=== PATIENT | female | born 1945 | race Caucasian/White ===

== ENCOUNTER → 2021-02-07 15:42 | Outpatient (CLI) | payer MEDICARE, OTHER, SELFPAY ==
[2021-02-07 18:05] LABS: Absolute Lymphocyte Count 1.91 X10^3/uL (0.83-4.51); Absolute Neutrophil Count 4.5 X10^3/uL (2.0-7.7); Basophil# 0.03 X10^3/uL; Basophil% 0.4 % (0-1); Eosinophil# 0.23 X10^3/uL; Eosinophils% 3.1 % (0-5); Hematocrit 39.3 % (37-47); Hemoglobin 12.6 g/dL (12.0-15.0); Lymphocyte # 1.91 X10^3/ul (0.83-4.51); Lymphocyte % 25.4 % (19-41); Mean Corp Hgb Conc 32.1 g/dL (32-36); Mean Corpuscular Volume 90.3 fL (81-99); Mean Platelet Vol. 9.9 fl (6.2-12.0); Monocyte# 0.81 X10^3/uL; Monocyte% 10.8 % (0-10); NRBC Flagged by Analyzer 0 % (0-5); Neutrophil # 4.52 X10^3/uL (2.7-7.7); Neutrophil % 59.9 % (47-70); Platelet Count 280 K/mm3 (150-450); RBC Distribution Width CV 13.1 % (11.6-14.6); RBC Distribution Width SD 43.1 fl (35.1-43.9); Red Blood Count 4.35 M/mm3 (4.2-5.4); White Blood Count 7.5 K/mm3 (4.4-11.0)
[2021-02-07 18:38] LABS: ALB/GLOB Ratio 0.8 RATIO (0.9-2.4); AST(SGOT) 17 U/L (15-37); Alanine Aminotransfer ALT/SGPT 24 U/L (13-56); Albumin, Serum 3.2 g/dL (3.2-5.0); Alkaline Phosphatase 49 U/L (45-117); Anion Gap 5 (5-15); BUN 11 mg/dL (7-18); BUN/Creat Ratio 17.1 RATIO (10-20); Calcium,Total 8.8 mg/dL (8.5-10.1); Chloride 104 mmol/L (98-107); Cholesterol 178 mg/dL (200); Creatinine, Serum 0.64 mg/dL (0.55-1.02); EST Glomerular Filtration Rate 96 mL/min (>60); Est Glom Filt Rate - Afr Amer 116 mL/min (>60); Globulin 3.8 g/dL (2.2-4.2); Glucose 91 mg/dL (74-106); High Density Lipoprotein 66 mg/dL; Potassium 3.6 mmol/L (3.5-5.1); Sodium Level 139 mmol/L (136-145); Triglycerides 124 mg/dL; Very Low Density Lipoprotein 25 mg/dL (5-40)
== END ==
PROVIDERS: PCP Family Medicine; Referring Provider Family Medicine; Visit Provider Family Medicine
DX: M79.10 Myalgia, unspecified site (principal); C50.919 Malignant neoplasm of unspecified site of unspecified female breast; R07.89 Other chest pain; Z13.220 Encounter for screening for lipoid disorders; Z91.89 Other specified personal risk factors, not elsewhere classified
CPT/HCPCS: 36415; 80053; 80061; 85025

== ENCOUNTER → 2022-07-04 | Outpatient (CLI) | payer MEDICARE, OTHER, SELFPAY ==
--- NOTE | 2022-07-04 07:33 | CT_ITS ---
STUDY: CT CHEST, ABDOMEN T PELVIS WITH CONTRAST REASON FOR EXAM: Female, 76 years old. BREAST CA RADIATION DOSAGE (If Supplied By Facility): CTDIvol = ( 13.44 ) mGy, DLP = ( 1105.08 ) mGycm TECHNIQUE: Transaxial imaging was performed following intravenous administration of IV 100mL [id number]. Individualized dose optimization techniques were used for this CT. COMPARISON: No relevant priors. FINDINGS: CHEST The lungs are normal. Tiny juxtapleural nodular density or focal nodular pleural thickening posteriorly in the superior segment of the right lower lobe measuring approximately 2 to 3 mm in size. No pleural effusion or pneumothorax. Heart size is normal. There is a tiny focus of coronary artery calcification Postop change status post bilateral mastectomy Normal mediastinum. Normal hilar regions. Normal unenhanced pulmonary arteries. Mild atherosclerotic change of the aorta without evidence for aneurysm.. Dorsal spine demonstrates degenerative changes. . ABDOMEN Nonspecific fatty infiltrated liver. Tiny solid nodule in the right lobe measuring approximately 5 to 6 mm of uncertain significance.. Normal gallbladder and extrahepatic biliary system. Normal spleen. Diffusely atrophic pancreas.. Normal bilateral adrenal glands. Normal right kidney. Normal left kidney. Normal visualized stomach. Mild ileus with diffuse fecal retention in the colon.. Minor diverticular changes of sigmoid colon without evidence for acute diverticulitis No evidence for acute appendicitis. Normal abdominal aorta. Normal inferior vena cava. Normal retroperitoneum. Normal abdominal wall. Lumbar spine demonstrates mild degenerative change. Grade 1 spondylolisthesis at L4-5. Degenerative changes of the sacroiliac joints. PELVIS Normal urinary bladder. Normal visualized small intestine. Minor sigmoid diverticulosis without evidence for acute diverticulitis There is no pelvic fluid. There is no pelvic lymphadenopathy or mass lesion. Normal visualized pelvic arteries. Normal abdominal wall. . CT/CT Chest, Abd, Pel w/Contrast IMPRESSION: Postop change status post bilateral mastectomy.. Tiny juxtapleural nodular density in the right lower lobe with more focal nodular pleural thickening measuring 5 to 6 mm in size of uncertain etiology. Metastatic disease not entirely excluded. Would recommend follow-up imaging utilizing Fleischner Society criteria Nonspecific fatty infiltration of liver. Tiny solid nodule in the right lobe of uncertain etiology possibly representing hemangioma although metastasis is not excluded. MRI would be useful for further evaluation. Minor diverticular disease of the sigmoid colon without evidence for acute diverticulitis No definitive evidence for metastatic disease. Other findings as above Electronically Signed: Kirk Young MD at 22:09 EDT ,
== END | disposition home or self-care (01) ==
LOC: CT 07:33
PROVIDERS: PCP Internal Medicine; Referring Provider Internal Medicine Medical Oncology; Visit Provider Internal Medicine Medical Oncology
DX: C50.919 Malignant neoplasm of unspecified site of unspecified female breast (principal)
CPT/HCPCS: 71260; 74177; Q9967

== ENCOUNTER → 2022-07-07 | Outpatient (CLI) | payer MEDICARE, OTHER, SELFPAY ==
--- NOTE | 2022-07-07 07:31 | NM_ITS ---
CLINICAL: 76-year-old female with history of primary breast carcinoma. WHOLE BODY 99m Tc MDP RADIONUCLIDE BONE SCINTIGRAPHY COMPARISON: None available FINDINGS: Following the intravenous administration of 25.0 mCi of 99m Tc MDP, whole body bone images reveal: 1. Increased radiopharmaceutical concentration is defined in the sternoclavicular compartment of the right shoulder, the bilateral wrists, the mid-lower cervical spine posteriorly on the right and left, the second and fourth lumbar vertebra, the patellofemoral compartments of both knees, the left midfoot and right forefoot. 2. The remaining skeletal structures are scintigraphically unremarkable with normal-appearing renal images and urinary bladder activity identified. NM/Bone Scan Whole Body IMPRESSION: 1. The increase in radiotracer defined in the right shoulder, both wrist articulations, the cervical and lumbar spine, the bilateral knees, the left midfoot and right forefoot is commensurate with degenerative arthrosis. 2. There is no scintigraphic evidence of diffuse axial skeletal metastatic disease on the current examination. Electronically Signed: James Velasquez, at 8:36 EDT ,
== END | disposition home or self-care (01) ==
LOC: NM 07:29
PROVIDERS: PCP Internal Medicine; Referring Provider Internal Medicine Medical Oncology; Visit Provider Internal Medicine Medical Oncology
DX: C50.911 Malignant neoplasm of unspecified site of right female breast (principal); C50.912 Malignant neoplasm of unspecified site of left female breast
CPT/HCPCS: 78306; A9503

== ENCOUNTER → 2023-04-27 | Outpatient (CLI) | payer MEDICARE, OTHER, SELFPAY ==
--- OUTSIDE RECORDS SUMMARY | 2023-04-27 06:49 | XMS RPT_ITS | CCD ---
Author Name Unknown Address [address] [place] [address] Organization [facility] Care Team Providers Care Data Communications Technician Name Role Phone Billie GALLOWAY, Tiana Primary Care Provider GANTA, TIANA Primary Care Unavailable GANTA, TIANA Attending Unavailable GANTA, TIANA Referring Unavailable GANTA, TIANA Primary Care Unavailable GANTA, TIANA Referring Unavailable GANTA, TIANA Primary Care Unavailable GANTA, TIANA Primary Care Unavailable GANTA, TIANA Referring Unavailable GANTA, TIANA Primary Care Unavailable GANTA, TIANA Referring Unavailable GANTA, TIANA Primary Care Unavailable GANTA, TIANA Attending Unavailable GANTA, TIANA Primary Care Unavailable GANTA, TIANA Referring Unavailable OLDER, SEN Attending Unavailable GANTA, TIANA Primary Care Unavailable OLDER, SEN Referring Unavailable GANTA, TIANA Primary Care Unavailable GANTA, TIANA Primary Care Unavailable OLDER, SEN Attending Unavailable GANTA, TIANA Primary Care Unavailable OLDER, SEN Referring Unavailable GANTA, TIANA Primary Care Unavailable GANTA, TIANA Primary Care Unavailable [place], KATTY Referring Unavailable GANTA, TIANA Primary Care Unavailable Allergies Allergy Classification Reported Allergen(s) Allergy Type Date of Onset Reaction(s) Facility (20 sources) Acetaminophen / HYDROcodone; Translations: [HYDROCODONE-ACETA MINOPHEN] Drug Allergy 1 GI Upset, Vomiting, Other: See Comments [facility] Work Phone: (20 sources) Codeine; Translations: [CODEINE] Drug Allergy 1 GI Upset [facility] Work Phone: (6 sources) Acetaminophen; Translations: [ACETAMINOPHEN] Drug Allergy 2 Mental Status Change [facility] Medications Current Medications Medication Drug Class(es) Dates Sig (Normalized) Sig (Original) perflutren lipid microspheres 1.3 mL in NaCl (PF) 0.9% 10 mL injection (DEFINITY) (11 sources) Start: 04-12-2022 End: 07-12-2023 perflutren lipid microspheres 1.3 mL in NaCl (PF) 0.9% 10 mL injection (DEFINITY) 125 ml sodium chloride 9 mg/ml prefilled syringe (11 sources) Start: 04-12-2022 End: 07-12-2023 sodium chloride 0.9 % (flush) 10 mL (BD POSIFLUSH) traZODone hydrochloride 50 mg oral tablet (19 sources) Serotonin Reuptake Inhibitor Start: 11-21-2022 End: 11-21-2023 take 1 tablet by mouth once daily at bedtime traZODone (DESYREL) 50 mg tablet Take 1 tablet by mouth daily at bedtime. 90 tablet 3 11/21/2022 11/21/2023 Active Completed/Discontinued Medications Medication Drug Class(es) Dates Sig (Normalized) Sig (Original) cephalexin 500 mg oral capsule (3 sources) Cephalosporin Antibacterial Start: 10-26-2022 End: 11-02-2022 take 1 capsule by mouth twice daily cephALEXin (KEFLEX) 500 mg capsule Take 1 capsule by mouth twice daily for 7 days. 14 capsule 0 10/26/2022 11/02/2022 Problems Active Problems Problem Classification Problem Date Documented Date Episodic/Chronic Cancer of breast (20 sources) Malignant tumor of breast ; Translations: [Malignant neoplasm of unspecified site of unspecified female breast] Onset: 02-15-2021 02-15-2021 Chronic Genitourinary symptoms and ill-defined conditions (1 source) Increased frequency of urination; Translations: for 13 visits from Start of Care Date: 05/18/21 to 07/14/2021 and treatment included: Therapeutic exercise, Neuromuscular re-education and Self-halfway management. Goals for Episode of Care: created on 05/18/21 through 06/29/21 Goals updated on 06/15/2021 through 07/20/21. Goals updated on 07/14/2021. Independent in home exercises. -- MET Patient will decrease pain rating by 2 points to meet minimal clinical important difference for numeric pain rating scale. -- MET Patient will decrease pain to 1-2/10 with functional activities to allow patient to improve ambulation, transfers and standing tolerance for ADLs. Stand / Walk 60 to 90 minutes without pain/symptoms. -- MET Sleep through night without pain/symptoms. -- MET Maintain proper sitting posture throughout session -- MET Patient will be able to tolerate sleeping without interruption for 6-8 hours without increased symptoms. -- MET Patient will be able to correct postural deviations independently in order to improve postural alignment of trunk during transfers, ambulation, standing and functional activities. -- MET Knowledgeable regarding prophylaxis. -- MET Patient Goals: tolerate standing for at least 30 minutes to play vibrTapstreamone and walking/standing >1 hour for exercise -- MET SUBJECTIVE: Patient Reason for Visit: Pt. reports she feels great and she has realized that activating her core when she has lower back pain decreases her symptoms. She is able to stand and walk for at least x1 hour due to improved core activation with activities and she manages her symptoms better with the repeated flexion exercises. Pain: Pain Pain Level: 0 Pain Location: Leg - Right;Leg - Left Pain Level 2: 0 Pain Location 2: Back Post Treatment Pain Post Treatment Pain Level: 0 Post Treatment Pain Location: Low Back/Lumbar Spine - Right;Low Back/Lumbar Spine - Left;Leg - Right;Leg - Left PROMIS Scales Higher is Better 02/14/2021 05/17/2021 GH Physical - Score 47.7 (Good) 47.7 (Good) GH Physical - Percentile 41 % 41 % GH Mental - Score 48.3 (Very Good) 67.6 (Excellent) GH Mental - Percentile 43 % 96 % T-scores: mean of general population = 50. 5 points is clinically meaningfully difference Percentiles provide an indication of how the patient's score ranks in relation to the general population. Higher percentile rankings indicate better function/quality of life. 50th percentile is the average of the general population and indicates half of respondents had a worse score. T-scores: mean of general population = 50. 5 points is clinically meaningfully difference Percentiles provide an indication of how the patient's score ranks in relation to the general population. Higher percentile rankings indicate better function/quality of life. 50th percentile is the average of the general population and indicates half of respondents had a worse score. OBJECTIVE MEASURES WITH LEVEL OF FUNCTION: Lumbar Spine AROM Lumbar Flexion: Normal Lumbar Extension: Minimal limitation Lumbar R Side-Bend: Normal Lumbar L Side-Bend: Normal Lumbar R Rotation: Normal Lumbar L Rotation: Normal TREATMENT: Therapeutic Exercise: 1: seated repeated flexion 3x10 2: seated TA activation 3x10 3: hook lying TA activation 3x10 4: hookl lying KTC stretch 3x30 sec 5: seated TA with alt UE raises 20x alt 6: seated TA with alt LE raises 20x alt 7: seated TA with alt LE and UE raises 20x alt Skilled Intervention: Patient was educated in proper exercise technique and purpose for exercises. Reviewed and educated patient on additions/changes for home exercise program as above (*). Skilled judgment was provided in selection of appropriate interventions. Correct performance of therapeutic exercises was facilitated with verbal and visual cuing. Additional time necessary for assessing progress toward goals due to discharge from PT. Educated patient on rationale for performing exercises in regards to decreasing fatigue , increase ease of ADL and ROM and function . Patient education as noted. Billing Therapeutic Exercise Treatment Minutes: 30 Total Treatment Time Minutes (timed/untimed): 30 Cait Jonh PT documented in this encounter [facility] 07-11-2021 History of Presen t illness Narrative Episode Visit Count: 12 Therapist That Will Oversee The Plan Of Care: Cait John Start of Care Date: 05/18/21 Onset Date: 12/16/20 Plan of Care Certification Date: 06/15/21 Next Certification Due Date: 07/20/21 Patient Identified by Name and Date of : Yes REHABILITATION AND SPORTS THERAPY PHYSICAL THERAPY TREATMENT NOTE ASSESSMENT: Krysta Friedman tolerated the session with cues for correct technique. She demonstrated difficulty with correct technique when completing the paloff press with OTB, but reported decreased pain with repeated flexion as consistently demonstrated. The patient will continue to benefit from ongoing skilled physical therapy to progress toward set goals. PLAN FOR NEXT VISIT: DC SUBJECTIVE: Patient Reason for Visit: Pt. reports she has been very busy while being in the process of purchasing a home. I haven't even had time to blow up my ball. Pt. has been completing her exercises 1x/day and admits this is not adequate for her to self manage her symptoms or improve her core strength. Pain: Pain Pain Level: 5 Pain Location: Leg - Right;Leg - Left Pain Level 2: 0 Pain Location 2: Back Post Treatment Pain Post Treatment Pain Location: Low Back/Lumbar Spine - Right;Low Back/Lumbar Spine - Left;Leg - Right;Leg - Left OBJECTIVE MEASURES WITH LEVEL OF FUNCTION: TREATMENT: Therapeutic Exercise: 1: seated repeated flexion 3x10 2: seated TA activation 3x10 4: standing paloff press OTB 3x12 each side 5: *YTB issued Skilled Intervention: Patient was educated in proper exercise technique and purpose for exercises. Reviewed and educated patient on additions/changes for home exercise program. Skilled judgment was provided in selection of appropriate interventions. Correct performance of therapeutic exercises was facilitated with verbal and visual cuing. Additional time necessary for pt. education due to pt. Having questions regarding swimming exercises. Patient education as noted. Self-Detention Management: 1: *pt. education to be proactive in managing her symptoms, suggested performing exercises prior to pain intensity increasing to severe level . 2: *pt. education to avoid prolonged sitting, education that prolonged sitting is mroe force on the lower back than standing 3: *reviewed swimming strokes that are flexion directional preference as opposed to extension that may cause increased symptoms. Skilled Intervention: Skilled judgment in the selection of proper modification for activity of daily living/home management based on clinical presentation, deficits, and needs. Educated the patient regarding recommendations and provided written instruction to facilitate compliance. Reviewed patient specific diagnosis in relation to activities of daily living/home management. Activity progression based on professional judgement. Correct performance of home program was facilitated with verbal and visual cueing. Billing Therapeutic Exercise Treatment Minutes: 20 Self-Care/Home Management Treatment Minutes: 10 Total Treatment Time Minutes (timed/untimed): 30 Cait John PT documented in this encounter [facility] 06-27-2021 History of Presen t illness Narrative Episode Visit Count: 10 Therapist That Will Oversee The Plan Of Care: Cait John Start of Care Date: 05/18/21 Onset Date: 12/16/20 Plan of Care Certification Date: 06/15/21 Next Certification Due Date: 07/20/21 Patient Identified by Name and Date of : Yes REHABILITATION AND SPORTS THERAPY PHYSICAL THERAPY TREATMENT NOTE ASSESSMENT: Krysta Friedman tolerated the session with no issues. She demonstrated improvements in TA activation with minimal cues, even in the hook lying position. The patient will continue to benefit from ongoing skilled physical therapy to progress toward set goals. PLAN FOR NEXT VISIT: Standing TA stabilization strengthening for at least 50% of the visit to assess pt. tolerance. SUBJECTIVE: Patient Reason for Visit: Pt. brings her ball with her to PT visit, reports it will not maintain air and it does not feel as firm as the ball used at the clinic during visits. PT advised pt. to send her ball back and purchase a ball that is more similar material of that in the clinic. Pain: Pain Pain Level: 0 Pain Location: Leg - Right;Leg - Left Frequency: Intermittent Post Treatment Pain Post Treatment Pain Level: 0 Post Treatment Pain Location: Low Back/Lumbar Spine - Right;Low Back/Lumbar Spine - Left;Leg - Right;Leg - Left Post Treatment Symptoms: no pain throughout visit during all exercises OBJECTIVE MEASURES WITH LEVEL OF FUNCTION: TREATMENT: Therapeutic Exercise: 1: seated TA activation, UE push down into ball on lap 3x12 2: seated on chair, foward flexion rolling ball forward 2x10 3: supine with physioball isometric TA 3x12 4: supine physioball roll outs with BLEs, hook lying 2x10 Skilled Intervention: Patient was educated in proper exercise technique and purpose for exercises. Reviewed and educated patient on additions/changes for home exercise program as above (*). Provided written instruction for home exercise program to facilitate proper performance and compliance. Correct performance of therapeutic exercises was facilitated with verbal, visual and tactile cuing. Additional time necessary for pt. education due to pt. Having questions about sit ups as a core strengthening exercise. Educated patient on rationale for performing exercises in regards to decreasing fatigue , increase ease of ADL and ROM and function . Patient education as noted. Neuromuscular Re-Education: 1: seated alt marches seated on ball 5x30 sec x1 UE support Skilled Intervention: Education in proprioceptive/kinesthetic awareness during sitting and dynamic activities. Reviewed and educated patient on additions/changes for home program as noted above with an (*). Patient education as noted. Self-Detention Management: 1: *pt. education regarding alternative to sit ups, to avoid repetative lumbar shear forces with excessive AROM of hips and lower back 2: *pt. education encouraging pt. to not push herself but to rather manage symptoms by performing standing and walking tasks within intervals of time that do not result in increased pain as opposed to performing HEP stretching when the pain becomes unbearable. Skilled Intervention: Skilled judgment in the selection of proper modification for activity of daily living/home management based on clinical presentation, deficits, and needs. Physical assistance was provided during education for modifications and patient safety. Reviewed patient specific diagnosis in relation to activities of daily living/home management. Activity progression based on professional judgement. Moderate verbal cues for maintaining neutral spine alignment. Correct performance of home program was facilitated with verbal, visual and tactile cueing. Billing Therapeutic Exercise Treatment Minutes: 20 Neuromuscular Re-Education Treatment Minutes: 10 Self-Care/Home Management Treatment Minutes: 10 Total Treatment Time Minutes (timed and untimed codes) : 40 Cait John PT documented in this encounter [facility] 06-22-2021 History of Presen t illness Narrative Episode Visit Count: 9 Therapist That Will Oversee The Plan Of Care: Cait John Start of Care Date: 05/18/21 Onset Date: 12/16/20 Plan of Care Certification Date: 06/15/21 Next Certification Due Date: 07/20/21 Patient Identified by Name and Date of : Yes REHABILITATION AND SPORTS THERAPY PHYSICAL THERAPY TREATMENT NOTE ASSESSMENT: Krysta Friedman tolerated the session with no issues. She demonstrated improvements in stability and balance while performing seated physioball exercises, as demonstrated by only 1 UE support without LOB. The patient will continue to benefit from ongoing skilled physical therapy to progress toward set goals. PLAN FOR NEXT VISIT: Continue core stabilization strengthening using physioball. SUBJECTIVE: Patient Reason for Visit: Pt. reports no pain with standing x1 hour today during rehersal. She also reports she has noticed that performing a pelvic tilt with standing and this reduces her pain while allowing her to stand greater periods of time with less lower back pain. Pain: Pain Pain Level: 0 Pain Location: Leg - Right;Leg - Left Frequency: Intermittent Post Treatment Pain Post Treatment Pain Level: 0 Post Treatment Pain Location: Low Back/Lumbar Spine - Right;Low Back/Lumbar Spine - Left;Leg - Right;Leg - Left Post Treatment Symptoms: no complaints of pain or LOB on ball throughout visit today OBJECTIVE MEASURES WITH LEVEL OF FUNCTION: TREATMENT: Neuromuscular Re-Education: 1: seated on 65 cm PPTs physioball 3x30 sec 2: seated on pysioball alt LE marches with x1 UE support 3x30 sec (no R hip pain, no LOB) 3: seated on physioball alt LAQ 3X30 sec x1 UE support 4: seated on physioball repeated lumbar flexion 3x10 (x1 UE support, between sets of alternating marches) 5: seated on physibon [facility], paloff press OTB, PT assist with TB anchor 3x12 each side 6: physioball TA isometric push down 3x15 7: seated on physioba, alt UE lifts 3x30 sec continuous Skilled Intervention: Skilled judgment used to assess appropriate program for balance and coordination activity. Education in proprioceptive/kinesthetic awareness during sitting, reaching and dynamic activities. Education and demonstration for posture and positioning for tone management. Insured patient safety with use of UE support on stable surface. Reviewed and educated patient on additions/changes for home program as noted above with an (*). Patient education as noted. Billing Neuromuscular Re-Education Treatment Minutes: 40 Total Treatment Time Minutes (timed and untimed codes) : 40 Cait John PT documented in this encounter [facility] Diagnosis Piriformis syndrome, unspecified laterality [facility] Diagnosis Piriformis syndrome, unspecified laterality documented in this encounter [facility] note* Diagnosis Piriformis syndrome, unspecified laterality documented in this encounter [facility] note* Diagnosis Anterolisthesis of lumbar spine- Primary Retrolisthesis of vertebrae Displacement of intervertebral disc, site unspecified, without myelopathy Special screening examination for viral disease Special screening examination for unspecified viral disease Screening for osteoporosis Special screening for osteoporosis Asymptomatic menopause Other osteoporosis, unspecified pathological fracture presence Encounter for immunization Need for other specified prophylactic vaccination against single bacterial disease documented in this encounter [facility] note* Diagnosis Screening for osteoporosis Special screening for osteoporosis Asymptomatic menopause [facility]* Diagnosis Polymyalgia rheumatica (HCC)- Primary Polymyalgia rheumatica documented in this encounter [facility] note* Diagnosis Polymyalgia rheumatica (HCC)- Primary Polymyalgia rheumatica [facility]* Diagnosis Lumbosacral radiculopathy at L5- Primary Thoracic or lumbosacral neuritis or radiculitis, unspecified Bilateral malignant neoplasm of breast in female, unspecified estrogen receptor status, unspecified site of breast (HCC) Lumbar radiculopathy Thoracic or lumbosacral neuritis or radiculitis, unspecified Brisk deep tendon reflexes Abnormal reflex Weakness of foot, unspecified laterality Muscle weakness Muscle weakness (generalized) Dyspnea on exertion Other dyspnea and respiratory abnormality Shortness of breath Spinal stenosis of lumbar region with neurogenic claudication Spinal stenosis, lumbar region, with neurogenic claudication documented in this encounter [facility] note* Diagnosis Spinal stenosis of lumbar region with neurogenic claudication- Primary Spinal stenosis, lumbar region, with neurogenic claudication Foraminal stenosis of lumbar region Spinal stenosis, lumbar region, without neurogenic claudication Bilateral malignant neoplasm of breast in female, unspecified estrogen receptor status, unspecified site of breast (HCC) Other fatigue Vitamin B12 deficiency Other B-complex deficiencies Vitamin D deficiency Unspecified vitamin D deficiency Dry eye Tear film insufficiency, unspecified Arthritis Arthropathy, unspecified, site unspecified [facility]* Diagnosis Urinary frequency- Primary documented in this encounter [facility] note* Diagnosis Urinary tract infection without hematuria, site unspecified- Primary Diastolic dysfunction Heart disease, unspecified Lipid screening Screening for lipoid disorders documented in this encounter [facility] Advance Directives No Advanced Directives Records FoundDocuments on File Type Date Recorded 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 Advance Directive(s) 04/20/2021 10:27 AM Advance Directive(s) 04/13/2021 10:35 AM Documents on File Type Date Recorded 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 anation Advance Directive(s) 04/20/2021 10:27 AM Advance Directive(s) 04/13/2021 10:35 AM Reason for Referral Specialty Diagnoses / Procedures Referred By Hardeep mccartney Referred To Contact Pain Management Diagnoses Anterolisthesis of lumbar spine Retrolisthesis of vertebrae Procedures CONSULT TO PAIN MGT Tiana Wise MD [address] [place] [address] Referral ID Status Reason Start Date Expiration Date Visits Requested Visits Authorized [id number] Ref Not Required PCP Requested Referral 08/18/2021 11/16/2021 3 3 Specialty Diagnoses / Procedures Referred By Contac t Referred To Contact MR IMAGING Diagnoses Spinal stenosis of lumbar region with neurogenic claudication Procedures MRI LUMBAR SPINE WO IVCON MRI SPINAL CANAL LUMBAR W/O CONTRAST MATERIAL Tiana Wise MD [address] [place] [address] Mr Imaging Referral ID Status Reason Start Date Expiration Date Visits Requested Visits Authorized [id number] Authorized Auto-Generat ed Referral 04/12/2022 05/12/2023 1 1 Specialty Diagnoses / Procedures Referred By Contac t Referred To Contact [facility] Diagnoses Dyspnea on exertion Procedures ECHO ECHO TTHRC R-T 2D W/WOM-MODE COMPL SPEC&COLR D Tiana Wise MD [address] [place] [address] [facility] [place] [address] Referral ID Status Reason Start Date Expiration Date Visits Requested Visits Authorized [id number] Authorized Auto-Generat ed Referral 04/12/2022 04/12/2023 1 1 Specialty Diagnoses / Procedures Referred By Contac t Referred To Contact Diagnoses Bilateral malignant neoplasm of breast in female, unspecified estrogen receptor status, unspecified site of breast (HCC) Procedures CONSULT TO HEMATOLOGY/ONCOLOGY OFFICE/OUTPATIENT [facility] MDM 60-74 MINUTES Tiana Wise MD [address] [place] [address] Referral ID Status Reason Start Date Expiration Date Visits Requested Visits Authorized [id number] Authorized PCP Requested Referral 05/09/2022 05/09/2023 1 1 Specialty Diagnoses / Procedures Referred By Contac t Referred To Contact [facility] Diagnoses Spinal stenosis of lumbar region with neurogenic claudication Foraminal stenosis of lumbar region Procedures CONSULT TO PHYSICAL THERAPY PHYSICAL THERAPY EVALUATION HIGH COMPLEX 45 MINS Tiana Wise MD [address] [place] [address] [facility] [place] [address] Referral ID Status Reason Start Date Expiration Date Visits Requested Visits Authorized [id number] Authorized PCP Requested Referral Auto-Generate d Referral 05/09/2022 05/09/2023 99 99 Specialty Diagnoses / Procedures Referred By Contac t Referred To Contact Pain Management Diagnoses Spinal stenosis of lumbar region with neurogenic claudication Foraminal stenosis of lumbar region Procedures CONSULT TO PAIN MGT OFFICE/OUTPATIENT NEW HIGH MDM 60-74 MINUTES Tiana Wise MD [address] [place] [address] Referral ID Status Reason Start Date Expiration Date Visits Requested Visits Authorized [id number] Authorized PCP Requested Referral 05/09/2022 08/07/2022 1 1 Summary Purpose Family History No Family History Records Found Additional Source Comments Source Comments (unrecognize d section and content) In the event this informatio n is protected by the Federal Confidentiality of Alcohol and Drug Abuse Patient Records regulations: The Federal rules restrict any use of the information to criminally investigate or prosecute any alcohol or drug abuse patient.[facility] Medical CenterIn the event this information is protected by the Federal Confidentiality of Alcohol and Drug Abuse Patient Records regulations: The Federal rules restrict any use of the information to criminally investigate or prosecute any alcohol or drug abuse patient.[facility] CenterIn the event this information is protected by the Federal Confidentiality of Alcohol and Drug Abuse Patient Records regulations: The Federal rules restrict any use of the information to criminally investigate or prosecute any alcohol or drug abuse patient.[facility] CenterIn the event this information is protected by the Federal Confidentiality of Alcohol and Drug Abuse Patient Records regulations: The Federal rules restrict any use of the information to criminally investigate or prosecute any alcohol or drug abuse patient.[facility] CenterIn the event this information is protected by the Federal Confidentiality of Alcohol and Drug Abuse Patient Records regulations: The Federal rules restrict any use of the information to criminally investigate or prosecute any alcohol or drug abuse patient.[facility] CenterIn the event this information is protected by the Federal Confidentiality of Alcohol and Drug Abuse Patient Records regulations: The Federal rules restrict any use of the information to criminally investigate or prosecute any alcohol or drug abuse patient.[facility] CenterIn the event this information is protected by the Federal Confidentiality of Alcohol and Drug Abuse Patient Records regulations: The Federal rules restrict any use of the information to criminally investigate or prosecute any alcohol or drug abuse patient.[facility] CenterIn the event this information is protected by the Federal Confidentiality of Alcohol and Drug Abuse Patient Records regulations: The Federal rules restrict any use of the information to criminally investigate or prosecute any alcohol or drug abuse patient.[facility] CenterIn the event this information is protected by the Federal Confidentiality of Alcohol and Drug Abuse Patient Records regulations: The Federal rules restrict any use of the information to criminally investigate or prosecute any alcohol or drug abuse patient.[facility] CenterIn the event this information is protected by the Federal Confidentiality of Alcohol and Drug Abuse Patient Records regulations: The Federal rules restrict any use of the information to criminally investigate or prosecute any alcohol or drug abuse patient.[facility] CenterIn the event this information is protected by the Federal Confidentiality of Alcohol and Drug Abuse Patient Records regulations: The Federal rules restrict any use of the information to criminally investigate or prosecute any alcohol or drug abuse patient.[facility] CenterIn the event this information is protected by the Federal Confidentiality of Alcohol and Drug Abuse Patient Records regulations: The Federal rules restrict any use of the information to criminally investigate or prosecute any alcohol or drug abuse patient.[facility] CenterIn the event this information is protected by the Federal Confidentiality of Alcohol and Drug Abuse Patient Records regulations: The Federal rules restrict any use of the information to criminally investigate or prosecute any alcohol or drug abuse patient.[facility] CenterIn the event this information is protected by the Federal Confidentiality of Alcohol and Drug Abuse Patient Records regulations: The Federal rules restrict any use of the information to criminally investigate or prosecute any alcohol or drug abuse patient.[facility] CenterIn the event this information is protected by the Federal Confidentiality of Alcohol and Drug Abuse Patient Records regulations: The Federal rules restrict any use of the information to criminally investigate or prosecute any alcohol or drug abuse patient.[facility] CenterIn the event this information is protected by the Federal Confidentiality of Alcohol and Drug Abuse Patient Records regulations: The Federal rules restrict any use of the information to criminally investigate or prosecute any alcohol or drug abuse patient.[facility] CenterIn the event this information is protected by the Federal Confidentiality of Alcohol and Drug Abuse Patient Records regulations: The Federal rules restrict any use of the information to criminally investigate or prosecute any alcohol or drug abuse patient.[facility] CenterIn the event this information is protected by the Federal Confidentiality of Alcohol and Drug Abuse Patient Records regulations: The Federal rules restrict any use of the information to criminally investigate or prosecute any alcohol or drug abuse patient.[facility] CenterIn the event this information is protected by the Federal Confidentiality of Alcohol and Drug Abuse Patient Records regulations: The Federal rules restrict any use of the information to criminally investigate or prosecute any alcohol or drug abuse patient.[facility] CenterIn the event this information is protected by the Federal Confidentiality of Alcohol and Drug Abuse Patient Records regulations: The Federal rules restrict any use of the information to criminally investigate or prosecute any alcohol or drug abuse patient.[facility] CenterIn the event this information is protected by the Federal Confidentiality of Alcohol and Drug Abuse Patient Records regulations: The Federal rules restrict any use of the information to criminally investigate or prosecute any alcohol or drug abuse patient.[facility] Reason for Visit (unrecogniz ed section and content) Specialty Diagnoses / Procedures Referred By Hardeep t Referred To Contact [facility] Diagnoses Piriformis syndrome, unspecified laterality Procedures CONSULT TO PHYSICAL THERAPY PHYSICAL THERAPY EVALUATION HIGH COMPLEX 45 MINS Tiana Wise MD [address] [place] [address] [facility] [address] [place] [address] Referral ID Status Reason Start Date Expiration Date Visits Requested Visits Authorized [id number] Authorized PCP Requested Referral Auto-Generate d Referral 05/18/2021 05/18/2022 99 99 Reason Comments Physical Therapy Reason Comments F/U 3 months Reason Comments Results Reason Onset Date Comments Refill Request 10/26/2021 Reason Comments Recheck refill needed Reason Comments Recheck Follow up Reason Comments Follow Up polymyalgia rheumati ca Reason Comments Results Orders Reason Comments Follow Up Reason Comments Fax Request Reason Comments Urinary Problem Pt reported frequenc y, urgency x2 wks. Reason Comments Recheck UC follow up, UTI Reason Comments Opened In Error Reason Onset Date Comments Refill Request 11/21/2022 Care Teams (unrecognized sec tion and content) Data Communications Technician Relationship Specialty Start Date End Date Tiana Wise MD [address] [place] [address] PCP - General Internal Medicine 02/15/21 Data Communications Technician Relationship Specialty Start Date End Date Tiana Wise MD [address] [place] [address] PCP - General Internal Medicine 02/15/21 Data Communications Technician Relationship Specialty Start Date End Date Tiana Wise MD [address] [place] [address] PCP - General Internal Medicine 02/15/21 Data Communications Technician Relationship Specialty Start Date End Date Tiana Wise MD [address] [place] [address] PCP - General Internal Medicine 02/15/21 Data Communications Technician Relationship Specialty Start Date End Date Tiana Wise MD [address] [place] [address] PCP - General Internal Medicine 02/15/21 Data Communications Technician Relationship Specialty Start Date End Date Tiana Wise MD [address] [place] [address] PCP - General Internal Medicine 02/15/21 Data Communications Technician Relationship Specialty Start Date End Date Tiana Wise MD [address] [place] [address] PCP - General Internal Medicine 02/15/21 Data Communications Technician Relationship Specialty Start Date End Date Tiana Wise MD [address] [facility] [place] [address] PCP - General Internal Medicine 02/15/21 Data Communications Technician Relationship Specialty Start Date End Date Tiana Wise MD [address] [facility] [place] [address] PCP - General Internal Medicine 02/15/21 Data Communications Technician Relationship Specialty Start Date End Date Tiana Wise MD [address] [facility] [place] [address] PCP - General Internal Medicine 02/15/21 Data Communications Technician Relationship Specialty Start Date End Date Tiana Wise MD [address] [facility] [place] [address] PCP - General Internal Medicine 02/15/21 Data Communications Technician Relationship Specialty Start Date End Date Tiana Wise MD [address] [facility] [place] [address] PCP - General Internal Medicine 02/15/21 Data Communications Technician Relationship Specialty Start Date End Date Tiana Wise MD [address] [facility] [place] [address] PCP - General Internal Medicine 02/15/21 Data Communications Technician Relationship Specialty Start Date End Date Tiana Wise MD [address] [facility] [place] [address] PCP - General Internal Medicine 02/15/21 Data Communications Technician Relationship Specialty Start Date End Date Tiana Wise MD [address] [place] [address] PCP - General Internal Medicine 02/15/21 INFORMATION SOURCE (unrecogn ized section and content) FOR RECORDS PERTAINING TO PATIENTS WHO ARE OR HAVE BEEN ENROLLED IN A CHEMICAL DEPENDENCY/SUBSTANCEABUSE PROGRAM, SOME INFORMATION MAY BE OMITTED. This clinical summary was aggregated from multiple sources. Caution should be exercised in using it in the provision of clinical care. This summary normalizes information from multiple sources, and as a consequence, information in this document may materially change the coding, format and clinical context of patient data. In addition, data may be omitted in some cases. CLINICAL DECISIONS SHOULD BE BASED ON THE PRIMARY CLINICAL RECORDS. [employer] provides no warranty or guarantee of the accuracy or completeness of information in this document.
--- NOTE | 2023-04-27 06:50 | ECHODONC_ITS ---
Reason For Study: Chest Pain Procedure This was a 2D Doppler, Color Flow transthoracic echocardiogram. Myocardial strain analysis was performed in this exam to aid in the assessment of cardiac function. Exam performed in department. Left Ventricle Normal size and thickness. The left ventricular ejection fraction is 65 %. Normal diastology for age. Right Ventricle Normal right ventricle. Atria The left and right atria are normal. Mitral Valve Trivial mitral valve insufficiency. Tricuspid Valve Trivial tricuspid valve insufficiency. Normal pulmonary artery pressure. Aortic Valve Trisinus/trileaflet aortic valve. Pulmonic Valve The pulmonic valve is not well visualized. Great Vessels Normal sized aortic root. Pericardium/Pleural No pericardial effusion. MMode/2D Measurements & Calculations LVIDd: 3.8 cm IVSd: 0.98 cm Ao root diam: 2.9 cm LVIDs: 2.1 cm LVPWd: 1.0 cm RVDd: 2.8 cm FS: 45.7 % LAV(MOD-bp): 27.1 ml LVAd ap4: 19.4 cm2 SV(MOD-sp4): 27.5 ml LAV(MOD-bp) Indexed: 14.7 ml/m2 LVLd ap4: 8.1 cm LAV(MOD-sp2): 31.0 ml EDV(MOD-sp4): 39.6 ml LAV(MOD-sp4): 21.7 ml EDV(sp4-el): 39.4 ml LVAs ap4: 9.6 cm2 LVLs ap4: 6.7 cm ESV(MOD-sp4): 12.0 ml ESV(sp4-el): 11.7 ml EF(MOD-sp4): 69.6 % EF(sp4-el): 70.4 % SV(sp4-el): 27.8 ml LA A4 area: 10.9 cm2 LA dimension(2D): 3.3 cm RA A4 area: 11.6 cm2 TAPSE: 2.3 cm Time Measurements MV dec time: 0.25 sec Doppler Measurements & Calculations MV E max williams: 65.4 cm/sec Lat Peak E' Williams: 8.1 cm/sec Med Peak E' Williams: 9.8 cm/sec MV A max williams: 72.2 cm/sec E/E' lat: 8.1 E/E' med: 6.7 MV E/A: 0.91 Ao V2 max: 106.1 cm/sec LV V1 max: 78.5 cm/sec MV dec slope: 257.1 cm/sec2 Ao max P.5 mmHg LV V1 max P.5 mmHg Ao V2 mean: 83.2 cm/sec Ao mean P.9 mmHg Ao V2 VTI: 26.0 cm PA V2 max: 68.7 cm/sec PI end-d williams: 130.0 cm/sec TR max williams: 206.5 cm/sec TR max P.1 mmHg ECHO/ONC Echo Complete Interpretation Summary The left ventricular ejection fraction is 65 %. Ordering Physician: Yue Lloyd Referring Physician: Essence Wise Performed By: Morena Ramirez, FELA, RVT
--- NOTE | 2023-04-30 17:46 | STRESSREP_ITS ---
Stress Test Report Date: 04/27/2023 Procedure: Pharmacologic stress nuclear imaging study Indications: Chest pain Consent: Per the patient Procedure: The patient underwent pharmacologic (Regadenoson 0.4mg ) evaluation with a peak heart rate of 82 beats per minute (57%predicted maximal heart rate) and a peak blood pressure of 138/62 mmHg. The baseline ECG demonstrated sinus rhythm. The peak pharmacologic ECG demonstrated no ischemic changes. There were no cardiac dysrhythmias pretest, during pharmacologic infusion, or recovery. There was no complaint of chest discomfort during pharmacologic infusion or recovery. The patient was injected with 11.5 millicuries of technetium 99m Cardiolite and subsequently rest SPECT Cardiolite nuclear imaging was obtained in the horizontal long, vertical long, and short axis views. The patient underwent pharmacologic (Regadenoson) evaluation. The patient was injected with 33.9 millicuries of technetium 99m Cardiolite and subsequently stress SPECT Cardiolite nuclear imaging was obtained in the horizontal long, vertical long, and short axis views. A gated Cardiolite study at peak stress was obtained. The examination was stopped secondary to completion of protocol. Rest and stress SPECT Cardiolite nuclear imaging status post realignment, normalization, and attenuation correction demonstrate no fixed or reversible perfusion defects. There is end systolic thickening and brightening. The gated Cardiolite study demonstrates myocardial thickening and inward wall motion. The reported LVEF is 73%. Impression: 1. Pharmacologic (Regadenoson) evaluation 2. Peak pharmacologic ECG with no ischemic changes. 3. There were no cardiac dysrhythmias pretest, during pharmacologic infusion, or recovery. 5. Rest and stress SPECT Cardiolite nuclear imaging demonstrate relative uniform tracer uptake and myocardial perfusion appearing within normal limits. 6. The gated Cardiolite study reports an LVEF of 73%. This note was generated with [employer] software. It may contain incorrect words, spelling, and punctuation that were not noted in checking the note before signing.
== END | disposition home or self-care (01) ==
LOC: CVS 06:47
PROVIDERS: PCP Internal Medicine; Referring Provider Physician Assistant Medical; Visit Provider Physician Assistant Medical
DX: R07.9 Chest pain, unspecified (principal); C50.919 Malignant neoplasm of unspecified site of unspecified female breast; I47.10 Supraventricular tachycardia, unspecified; I10 Essential (primary) hypertension
CPT/HCPCS: 78452; 93017; 93306; 93356; A9500; A4216; J2785

== ENCOUNTER → 2023-06-07 | Outpatient (CLI) | payer MEDICARE, OTHER, SELFPAY | END | disposition home or self-care (01) | LOC: LABSPEC 12:44 | PROVIDERS: PCP Internal Medicine | DX: L02.211 Cutaneous abscess of abdominal wall (principal) | CPT/HCPCS: 87070; 87186; 87205 ==

== ENCOUNTER → 2023-07-04 | Outpatient (CLI) | payer MEDICARE, OTHER, SELFPAY ==
--- NOTE | 2023-07-04 08:29 | CT_ITS ---
STUDY: CT CHEST, ABDOMEN T PELVIS WITH CONTRAST REASON FOR EXAM: Female, 77 years old. MONITOR LUNG NODULE-HX OF BILAT BREAST CA-IV ONLY RADIATION DOSAGE (If Supplied By Facility): CTDIvol = ( 12.61 ) mGy, DLP = ( 1266.75 ) mGycm TECHNIQUE: Transaxial imaging was performed following intravenous administration of IV 100mL Isovue-370. Multiplanar coronal and sagittal images were reformatted. Individualized dose optimization techniques were used for this CT. COMPARISON: Comparison is made with prior study in July 04, 2022. FINDINGS: CHEST The patient is status post bilateral mastectomy. Hyperinflation. Stable 2 mm noncalcified nodule pleural-based nodule in the posterior aspect of the superior segment of the right lower lobe suggestive of scarring. Mild scarring at the lung bases. No suspicious pulmonary nodule is seen. There is no demonstrated pleural abnormality. No evidence of coronary artery calcification. Normal mediastinum. Normal hilar regions. Normal unenhanced pulmonary arteries. Atherosclerotic plaque formation of the aortic arch. There are degenerative changes of the thoracic spine. Hiatal hernia. ABDOMEN There is decreased attenuation of the liver consistent with steatosis. Stable 5 mm cyst in the inferior anterior aspect of the right lobe of the liver. Normal gallbladder and extrahepatic biliary system. Normal spleen. There is diffuse atrophy of the pancreas. Normal bilateral adrenal glands. Normal right kidney. Normal left kidney. Normal visualized stomach. Normal small intestine. Normal colon. The appendix is visualized and appears normal. Normal abdominal aorta. Normal inferior vena cava. Normal retroperitoneum. Normal abdominal wall. Mild degenerative changes at the L4-L5 level as well as mild anterior listhesis of L4 on L5. PELVIS Normal urinary bladder. Normal visualized small intestine. Normal visualized colon. There is no pelvic fluid. There is no pelvic lymphadenopathy or mass lesion. Normal visualized pelvic arteries. CT/CT Chest, Abd, Pel w/Contrast IMPRESSION: Stable examination. Electronically Signed: Lobo Connolly MD at 14:53 EDT ,
[2023-07-04 08:55] LABS: CREATININE FINGERSTICK < 1.0 mg/dL (0.55-1.02); EGFR FINGERSTICK > 60.0000 mL/min (>60)
== END | disposition home or self-care (01) ==
LOC: CT 08:26
PROVIDERS: PCP Internal Medicine; Referring Provider Internal Medicine Medical Oncology; Visit Provider Internal Medicine Medical Oncology
DX: R91.1 Solitary pulmonary nodule (principal); Z85.3 Personal history of malignant neoplasm of breast
CPT/HCPCS: 71260; 74177; Q9967

== ENCOUNTER → 2023-09-10 | Outpatient (CLI) | payer MEDICARE, OTHER, SELFPAY | END | disposition home or self-care (01) | LOC: LABSPEC 09:52 | PROVIDERS: PCP Internal Medicine; Referring Provider Nurse Practitioner Family; Visit Provider Nurse Practitioner Family | DX: N39.0 Urinary tract infection, site not specified (principal) | CPT/HCPCS: 87077; 87086; 87088; 87186 ==

== ENCOUNTER 2023-09-19 16:45 | Emergency (ER) | payer MEDICARE, OTHER, SELFPAY ==
[2023-09-19 16:47] VITALS: BP 144/62; PULSE 70; RESP 18; TEMP 35.5; O2SAT 98; BMI 27.7
--- NOTE | 2023-09-19 17:01 | CT_ITS ---
INDICATION: head injury EXAMINATION: CT BRAIN - CT Head or Brain W/O Contrast Injection TECHNIQUE: Multiple axial images were obtained of the head without intravenous contrast. A radiation dose optimization technique was used for this scan. IV Contrast dosage and agent: None. COMPARISON: None. FINDINGS: BRAIN PARENCHYMA: No intra- or extra-axial hemorrhage. No evidence of acute infarct. No intracranial mass or mass effect. There is preservation of the zambrano/white matter interface. Posterior fossa structures are unremarkable. CSF SPACES: Appropriate for age. No hydrocephalus. Basal cisterns are patent. CALVARIUM, SKULL BASE, PARANASAL SINUSES AND MASTOID AIR CELLS: Clear. No discrete lytic or blastic abnormalities. CT/Brain/Head without Contrast IMPRESSION: No acute intracranial findings. Electronically Signed: Christiano Chambers MD at 17:56 EDT ,
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
== END 2023-09-19 18:10 | disposition home or self-care (01) ==
PROVIDERS: Emergency Provider Emergency Medicine; PCP Internal Medicine; Visit Provider Emergency Medicine
DX: S09.90XA Unspecified injury of head, initial encounter (principal); I10 Essential (primary) hypertension; Z87.891 Personal history of nicotine dependence; W22.09XA Striking against other stationary object, initial encounter
CPT/HCPCS: 70450; 99282

== ENCOUNTER → 2023-12-10 | Outpatient (CLI) | payer MEDICARE, OTHER, SELFPAY ==
[2023-12-10 16:39] LABS: Absolute Lymphocyte Count 1.92 X10^3/uL (0.83-4.51); Absolute Neutrophil Count 5.8 X10^3/uL (2.0-7.7); Basophil# 0.05 X10^3/uL; Basophil% 0.6 % (0-1); Eosinophil# 0.22 X10^3/uL; Eosinophils% 2.5 % (0-5); Hematocrit 42.2 % (37-47); Hemoglobin 13.5 g/dL (12.0-15.0); Lymphocyte # 1.92 X10^3/ul (0.83-4.51); Lymphocyte % 21.5 % (19-41); Mean Corpuscular Hgb 28.2 pg (27.0-32.0); Mean Corpuscular Volume 88.3 fL (81-99); Mean Platelet Vol. 9.7 fl (6.2-12.0); Monocyte# 0.91 X10^3/uL; Monocyte% 10.2 % (0-10); NRBC Flagged by Analyzer 0 % (0-5); Neutrophil # 5.77 X10^3/uL (2.7-7.7); Neutrophil % 64.6 % (47-70); Platelet Count 328 K/mm3 (150-450); RBC Distribution Width CV 13.7 % (11.6-14.6); Red Blood Count 4.78 M/mm3 (4.2-5.4); White Blood Count 8.9 K/mm3 (4.4-11.0)
[2023-12-10 17:10] LABS: ALB/GLOB Ratio 0.9 RATIO (0.9-2.4); AST(SGOT) 25 U/L (15-37); Alanine Aminotransfer ALT/SGPT 24 U/L (13-56); Albumin, Serum 3.8 g/dL (3.2-5.0); Alkaline Phosphatase 83 U/L (45-117); Anion Gap 7 (5-15); BUN 7 mg/dL (7-18); BUN/Creat Ratio 11.4 RATIO (10-20); Calcium,Total 9.6 mg/dL (8.5-10.1); Chloride 99 mmol/L (98-107); Cholesterol 231 mg/dL (200); Creatinine, Serum 0.61 mg/dL (0.55-1.02); EST Glomerular Filtration Rate 100 mL/min (>60); Est Glom Filt Rate - Afr Amer 121 mL/min (>60); Globulin 4.1 g/dL (2.2-4.2); Glucose 99 mg/dL (74-106); High Density Lipoprotein 63 mg/dL; Potassium 3.8 mmol/L (3.5-5.1); Protein, Total 7.9 g/dL (6.4-8.2); Sodium Level 134 mmol/L (136-145); Triglycerides 263 mg/dL; Very Low Density Lipoprotein 53 mg/dL (5-40)
[2023-12-10 17:13] LABS: Vitamin D,25 Hydroxy 51.9 ng/mL
== END | disposition home or self-care (01) ==
LOC: BIMLAB 15:44
PROVIDERS: PCP Internal Medicine; Referring Provider Internal Medicine; Visit Provider Internal Medicine
DX: I10 Essential (primary) hypertension (principal); M85.80 Other specified disorders of bone density and structure, unspecified site
CPT/HCPCS: 36415; 80053; 80061; 82306; 85025

== ENCOUNTER → 2023-12-21 | Outpatient (CLI) | payer MEDICARE, OTHER, SELFPAY ==
[2023-12-21 13:07] LABS: Mucous, Urine 0 SEEN /hpf (<or=2+)
[2023-12-21 15:36] LABS: Color, Urine Yellow (Yellow); Glucose, Dipstick Normal (Normal); Ketone-Dipstick Negative (Negative); Leukocyte Esterase-Dipstick 500 /ul (Negative); Nitrite-Dipstick Negative (Negative); Occult Blood-Urine 50 /ul (Negative); Protein-Dipstick 30 mg/dl (Negative); Specific Gravity, Urine 1.005 (1.002-1.030); Urine Bilirubin Dipstick Negative (Negative); Urine Clarity Cloudy (Clear); Urine Urobilinogen Normal (Normal); Urine pH 6.5 (5.0 - 8.0)
[2023-12-21 15:53] LABS: Squamous Epithelial Cells - UA 0-5 SEEN /hpf (5-10); White Blood Cells >100 SEEN /hpf (0-5)
[2023-12-21 15:54] LABS: Bacteria 1+ /hpf (None Seen); Red Blood Cells-Urine 10-25 SEEN /hpf (0-5)
== END | disposition home or self-care (01) ==
LOC: LABSPEC 13:02
PROVIDERS: PCP Internal Medicine; Referring Provider Internal Medicine; Visit Provider Internal Medicine
DX: N39.0 Urinary tract infection, site not specified (principal)
CPT/HCPCS: 81001; 87086; 87088

== ENCOUNTER → 2023-12-27 | Outpatient (CLI) | payer MEDICARE, OTHER, SELFPAY ==
--- NOTE | 2023-12-27 10:55 | BD_ITS ---
STUDY: DUAL ENERGY X-RAY ABSORPTIOMETRY / DXA REASON FOR EXAM: Female, 78 years old. Post Menopausal TECHNIQUE: Bone Mineral Density (BMD) measurements of lumbar spine and bilateral hips were obtained. COMPARISON: None. FINDINGS: Lumbar Spine (L1-L4): g/cm2 (1.017) / T-score (0.0) / Z-score (2.5) Findings are suggestive of normal bone density with a low fracture risk. Left Femur Total: g/cm2 (0.810) / T-score (-1.1) / Z-score (0.9) Left Femoral Neck: g/cm2 (0.689) / T-score (-1.4) / Z-score (0.8) Right Femur Total: g/cm2 (0.803) / T-score (-1.1) / Z-score (0.8) Right Femoral Neck: g/cm2 (0.601) / T-score (-2.2) / Z-score (0.0) BD/Dexa Bone Density Study IMPRESSION: The patient is considered osteopenic as outlined below according to World Ant Organization (WHO) criteria with a high fracture risk. Reference Information: The T-score is the number of standard deviations above or below the standard which is normal for young adults at their peak bone mineral density. The World Health Organization (WHO) interprets the T-scores as follows: Above -1 Normal bone density Between -1 and -2.5 Osteopenia Equal to / or below -2.5 Osteoporosis As a practical clinical guideline, osteopenia may be graded as follows: Mild -1 through -1.5 Moderate -1.6 through -2.0 Severe -2.1 through -2.4 The Z-score is the number of standard deviations above or below age-matched controls. A Z-score of less than -1.5 would be considered abnormal. References: 1. NIH Osteoporosis and Related Bone Diseases www osteo.org 2. International Society for Clinical Densitometry www iscd.org 3. National Osteoporosis Foundation www nof.org Electronically Signed: Lobo Connolly MD at 15:02 EDT ,
== END | disposition home or self-care (01) ==
LOC: OPBD 10:53
PROVIDERS: PCP Internal Medicine; Referring Provider Internal Medicine; Visit Provider Internal Medicine
DX: Z78.0 Asymptomatic menopausal state (principal)
CPT/HCPCS: 77080

== ENCOUNTER → 2024-01-21 | Outpatient (CLI) | payer MEDICARE, OTHER, SELFPAY ==
--- NOTE | 2024-01-21 15:30 | MRI_ITS ---
STUDY: MRI LUMBAR SPINE WITHOUT CONTRAST REASON FOR EXAM: Female, 78 years old. pain TECHNIQUE: Standardized fat and water weighted pulse sequences were obtained in the sagittal and axial planes. COMPARISON: Lumbar spine radiograph December 18, 2023 FINDINGS: T12-L1: Normal endplates. Normal disc height, hydration and morphology. Normal bilateral facet joints. Normal central canal and bilateral lateral recesses. Normal bilateral intervertebral neural foramina. Normal lumbar lordosis. There is no substantial scoliosis. Normal conus medullaris that terminates at the L1 level. L1-2: Normal endplates. Mild annular bulge. Normal disc height, hydration and morphology. Normal bilateral facet joints. Normal central canal and bilateral lateral recesses. Normal bilateral intervertebral neural foramina. L2-3: Normal endplates. Mild annular bulge. Normal disc height, hydration and morphology. Normal bilateral facet joints. Normal central canal and bilateral lateral recesses. Normal bilateral intervertebral neural foramina. L3-4: Normal endplates. Normal disc height, hydration and morphology. Hypertrophic bilateral facet joints. Normal central canal and bilateral lateral recesses. Moderate narrowing bilateral intervertebral neural foramina. L4-5: 1 cm anterior subluxation and fluid-filled hypertrophic facets causes severe spinal stenosis of the central canal and neural foramina. L5-S1: Normal endplates. Normal disc height, hydration and morphology. Hypertrophic bilateral facet joints. Normal central canal and bilateral lateral recesses. Normal bilateral intervertebral neural foramina. Normal visualized sacral ala. Normal visualized paraspinous soft tissue structures. MRI/Spine Lumbar (Routine) IMPRESSION: Grade 2 spondylolisthesis L4-5 and severe spinal stenosis as above. Moderate bilateral neural foraminal narrowing at L3-4. Electronically Signed: Brian Duong MD at 22:52 EDT Reading Location ID and State: [address] [place] [address] Tel , Service support ,
== END | disposition home or self-care (01) ==
LOC: MRI 15:08
PROVIDERS: PCP Internal Medicine; Referring Provider Student in an Organized Health Care Education/Training Program; Visit Provider Student in an Organized Health Care Education/Training Program
DX: M54.50 Low back pain, unspecified (principal)
CPT/HCPCS: 72148

== ENCOUNTER 2024-01-31 09:30 | Outpatient (RCR) | payer MEDICARE, OTHER, SELFPAY ==
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
--- NOTE | 2024-01-31 10:35 | HP.PTDCSUM ---
Discharge Summary D/C summary: It has been my pleasure to treat KRYSTA FRIEDMAN referred by ROSANA Benedict, with the diagnosis of LUMBAR RADICULOPATHY for a total of 9 visit(s). Discharge Date: 01/31/24 Please see the following information for a summary of their discharge status. Subjective Subjective: I'M MORE RESTED BECAUSE I'M ABLE TO SLEEP BETTER. PATIENT REPORTS THE BIGGEST IMPROVENT SHE HAS NOTICED SINCE STARTING THERAPY IS LESS PAIN AT NIGHT. SOME LESS PAIN DURING THE DAY TOO. LESS RESISTENCE TO GETTING THE DISHES DONE AND I'M MAKING THE BED EVERY DAY NOW TOO. PATIENT ALSO STATES - I'VE BEEN SITTING UP STRAIGHTER AND STANDING UP STRAIGHTER AND I THINK IT HELPS. PATIENT REPORTS THIS HAS BEEN HELPFUL BUT IT IS STRESSFUL HER TO MAKE THE TIME TO GET HERE. AT THIS POINT SHE WOULD LIKE TO CONTINUE ON HER OWN WITH WHAT WE HAVE TAUGHT HER AND SHE WILL RETURN IF NEEDED. REPORTS SHE IS GOING TO START MEDICATION FOR OSTEOPOROSIS IN FEBRUARY - SAW PCP. Pain L LE: Pain Intensity (Out of 10): 2 R LE: Pain Intensity (Out of 10): 2 Overall Improvement % Improvement: 20 Objective Objective/Function: PATIENT WAS SEEN TODAY FOR RE-ASSESSMENT OF PROGRESS TOWARD THE SET PT GOALS AND THE NEED FOR FURTHER PHYSICAL THERAPY VS READINESS FOR DISCHARGE. THIS PATIENT IS A GOOD CANDIDATE TO CONTINUE PT BASED ON PROGRESS BEING MADE BUT SHE IS REQUESTING TO STOP AT THIS TIME DUE TO STRESS ASSOCIATED WITH COMING. SHE IS EXPRESSING APPRECIATING FOR BENEFIT SHE HAS RECEIVED AND PLANS TO CONTINUE ON HER OWN WITH WHAT SHE HAS LEARNED. UPON EXAM TODAY: PATIENT NOW ABULATES WITH INCREASED FREEDOM OF MVMT COMPARED TO INITIAL EVAL. HER STEPS ARE NOT TENTATIVE AND HER STRIDE HAS INCREASED. SHE IS STILL CAREFUL AND LOOKS DOWN AT THE FLOOR A LOT WHEN WALKING. HER POSTURE IS ALSO MORE UPRIGHT IN SITTING AND STANDING COMPARED TO INITIAL EVAL WITH GOOD PATIENT AWARENESS. SHE DEMO'S INDEP ABILITY TO TRANSFER FROM SIT TO STAND WITHOUT UE ASSIST. Sensory deficit: PENNY LE LIGHT TOUCH SENSATION GROSSLY INTACT AND SYMMETRICAL ROM deficit: PENNY HIP FLEXOR, HS AND CALF TIGHTNESS Motor deficit: R HIP 4/5, L HIP 4+/5, KNEES 5/5, ANKLES 5/5 Reflexes: 2+ QUADS AND ACHILLES Dural Signs: NEGATIVE PENNY LE'S. Lumbar mvmt loss: NT. SEE MRI RESULTS ABOVE. FOLLOW UP WITH DR. GARCIA FOR RESULTS PENDING NEXT WEEK. Core strength: FAIR Palpation: MILD TENDERNESS ALONG L SACRUM TODAY OTHER: ABLE TO WALK ON TOES AND HEELS WITH ONE UE ASSIST. Goals Goal 1:: DECREASE C/O LOW BACK AND PENNY LE SX'S BY AT LEAST 50% Goal Progress: Progressing Goal 2:: IMPROVE PERSONAL CARE, WALKING, STANDING, SOCIAL LIFE AND HOMEMAKING FUNCTION. Goal Progress: Progressing Goal 3:: INSTRUCT IN PROPHYLAXIS Goal Progress: Progressing Plan Plan: D/C AT PATIENTS REQUEST. D/C Information d/c sentence: If there are questions or concerns regarding this patient's physical therapy, please feel free to call me at [phone]. Thank you for the referral of this patient. Sincerely, Mary Jane Soto, PT, Cert MDT Balance/Gait/Functional tests Balance/Special Test Scores Oswestry Low Back Score: 20 Improvement % Improvement: 20
== END 2024-01-31 12:47 | disposition home or self-care (01) ==
LOC: PT 09:30
PROVIDERS: PCP Internal Medicine; Referring Provider Student in an Organized Health Care Education/Training Program; Visit Provider Student in an Organized Health Care Education/Training Program
DX: M54.16 Radiculopathy, lumbar region (principal)
CPT/HCPCS: 97113; 97162; 97530

== ENCOUNTER → 2024-03-07 | Outpatient (CLI) | payer MEDICARE, OTHER, SELFPAY ==
--- NOTE | 2024-03-07 12:49 | CT_ITS ---
STUDY: CT ABDOMEN WITH CONTRAST REASON FOR EXAM: Female, 78 years old. RUQ pain; h/o breast cancer RADIATION DOSAGE (If Supplied By Facility): CTDIvol = ( 14.28 ) mGy, DLP = ( 873.38 ) mGycm TECHNIQUE: Transaxial images were obtained post I.V. administration of IV 100mL Isovue-370, and without oral contrast. Sagittal and coronal images were reconstructed. Individualized dose optimization techniques were used for this CT. COMPARISON: None. FINDINGS: The visualized lung bases are unremarkable. The visualized portions of the heart are within normal limits. Normal liver. Normal gallbladder and extrahepatic biliary system. Normal spleen. Normal pancreas. Normal bilateral adrenal glands. Normal right kidney. Normal left kidney. Submucosal thickening noted in the gastric antrum and pyloric channel consistent with gastritis. Normal small intestine. Retained stool noted in the colon with scattered diverticula but no CT evidence of acute diverticulitis. The appendix is visualized and appears normal. Appendix seen on coronal recon images 34 through 43. Normal abdominal aorta. Normal inferior vena cava. Normal retroperitoneum. Normal abdominal wall. Bony structures show degenerative change with grade 1 spondylolisthesis at L4-5 CT/Abdomen WITH IV Contrast IMPRESSION: No suspicious solid organ abnormality No free intraperitoneal fluid, air, or suspicious adenopathy, normal appendix visualized Submucosal thickening in the gastric antrum and pyloric channel consistent with gastritis Retained stool throughout the colon with scattered diverticula but no CT evidence of acute diverticulitis Degenerative bony changes Electronically Signed: Binu Malhotra MD at 21:27 EST ,
== END | disposition home or self-care (01) ==
LOC: CT 12:48
PROVIDERS: PCP Internal Medicine; Referring Provider Nurse Practitioner Family; Visit Provider Nurse Practitioner Family
DX: R10.11 Right upper quadrant pain (principal); Z85.3 Personal history of malignant neoplasm of breast
CPT/HCPCS: 74160; Q9967

== ENCOUNTER → 2024-04-24 | Outpatient (CLI) | payer MEDICARE, OTHER, SELFPAY ==
--- NOTE | 2024-04-24 14:00 | RAD_ITS ---
PROCEDURE: HIP, UNI W/ PELVIS 2-3 VIEWS REASON FOR EXAM: Osteoarthritis TECHNIQUE: Three-view left hip to include the AP pelvis COMPARISON: None. RAD/HIP, UNI W/ Pelvis 2-3 Views IMPRESSION: Prominent degenerative changes of the visualized lower lumbar spine are noted. Mild sacroiliac joint degenerative changes are seen in the left, loon-[id number] te on the right. The right hip demonstrates mild degenerative changes, without significant joint narrowing. Peqy-it-hgivtort left hip joint degenerative changes are seen, with moderate benavides perior joint narrowing. No evidence of femoral head osteonecrosis. No acute fracture or dislocation is seen. Reading Location: [id number]
== END | disposition home or self-care (01) ==
LOC: RAD 13:49
PROVIDERS: PCP Internal Medicine; Referring Provider Anesthesiology Pain Medicine; Visit Provider Anesthesiology Pain Medicine
DX: M16.12 Unilateral primary osteoarthritis, left hip (principal)
CPT/HCPCS: 73502

== ENCOUNTER → 2024-06-30 | Outpatient (CLI) | payer MEDICARE, OTHER, SELFPAY ==
--- NOTE | 2024-06-30 08:15 | CT_ITS ---
PROCEDURE: CT CHEST, ABD, PEL W/CONTRAST 06/30/2024 REASON FOR EXAM: LUNG NODULE/HX OF BREAST CA-IV ONLY TECHNIQUE: CT chest abdomen and pelvis was performed with IV contrast. Multiplanar reformats were generated. One or more dose reduction techniques were used (e.g., Automated exposure control, adjustment of the mA and/or kV according to patient size, use of iterative reconstruction technique. PATIENT PREPARATION: Per protocol ORAL CONTRAST TYPE: None. CONTRAST: Isovue-300 VOLUME: 98 mL RADIATION DOSE SUMMARY: CTDlvol: 7.6+ 15.2+ 7.25+ 19.31 mGy DLP: 1223.61 mGycm COMPARISON: CT abdomen and pelvis 03/07/2024. No prior imaging of the chest is available. FINDINGS: Heart/pericardium: Trace aortic annular calcification.. Aorta: Mild/moderate atherosclerosis. Ductus diverticulum. Pulmonary arteries: Unremarkable. Lymph nodes: Asymmetrically prominent LEFT axillary nodes up to 7 mm short axis, some of which appear slightly rounded. Lungs/pleura: Mild atelectasis/scarring. 3 mm subpleural LEFT upper lobe nodule (series 6, image 67). Subpleural 3 mm LEFT lower lobe nodules (image 85, 98, and 106). 2 mm subpleural RIGHT lower lobe micronodule (image 87). Posterior subpleural RIGHT lower lobe nodule versus nodular appearance of dependent atelectasis up to 5 x 6 mm (image 58 and 72). Similar finding in the LEFT lower lobe on image 100. Accessory fissure in the RIGHT lower lobe, normal variant. Airways: Unremarkable. Chest wall: Bilateral mastectomy. Liver: Similar hepatic hypodensities up to 7 mm in the inferior RIGHT lobe, too small to characterize. Spleen: Unremarkable. Gallbladder: Unremarkable. Pancreas: Atrophic. Adrenals: Unremarkable. Kidneys: Similar tiny hypodensities bilaterally, too small to characterize, likely cysts. Bowel: Diverticulosis.. Normal caliber appendix. Lymph nodes: Unremarkable. Vasculature: Mild atherosclerosis.. Peritoneum: Unremarkable. Bladder: Somewhat distended and otherwise unremarkable. Reproductive Organs: Unremarkable. Body Wall: Unremarkable. Musculoskeletal: Demineralization. Multilevel spondylosis. Mild thoracic dextroscoliosis may be positional. Degenerative changes of the [id number]-gheo-RIGHT shoulder. Similar grade 1-2 degenerative anterolisthesis at L4-L5. Advanced degenerative changes of the LEFT hip, increased from 03/07/2024. Ankylosis of the anterior SI joints. CT/CT Chest, Abd, Pel w/Contrast IMPRESSION: 1. Bilateral mastectomy with asymmetrically prominent but technically nonenlarg ed enlarged LEFT axillary nodes, some of which may demonstrate a mildly abnormal rounded morphology. These are nonspecific by CT but given the context, clinical follow-up is warranted. These would optimally be evaluated sonographically at a [facility]. 2. Tiny hepatic hypodensities too small to characterize but similar to prior, p ossible cysts/hemangiomas however this is not definite. 3. Small sub 6 mm average axial diameter nonspecific pulmonary nodules as detai led. 4. Additional description as above. Note that comparison against any available outside imaging would be helpful to establish the stability of the indeterminate findings in #1-3 above. If unavailable, recommend close clinical/oncologic fol low-up given the context. Reading Location: [id number]
== END | disposition home or self-care (01) ==
LOC: CT 07:59
PROVIDERS: PCP Internal Medicine; Referring Provider Internal Medicine Medical Oncology; Visit Provider Internal Medicine Medical Oncology
DX: R91.1 Solitary pulmonary nodule (principal); Z85.3 Personal history of malignant neoplasm of breast
CPT/HCPCS: 71260; 74177; Q9967

== ENCOUNTER → 2024-07-23 | Outpatient (CLI) | payer MEDICARE, OTHER, SELFPAY ==
--- NOTE | 2024-07-23 10:07 | US_ITS ---
PROCEDURE: ABD LIMITED W/ ELASTOGRAPHY, 07/23/2024 REASON FOR EXAM: FATTY LIVER COMPARISON: 06/30/2024 TECHNIQUE: Grayscale and color Doppler imaging of the right upper quadrant was performed. Elastography was performed for non-invasive assessment of liver tissue stiffness utilizing a [employer] S-shear wave imaging unit. FINDINGS: Liver: Echogenic. 18.1 cm in length. A small focal hypoechoic area along the gallbladder fossa measures 1.7 x 1.3 x 1.2 cm, location suggestive of focal fatty sparing. Additional tiny hypodensities seen on CT are not visualized. Gallbladder: Unremarkable. Reportedly, sonographic Garcia's was negative. Biliary tree: Unremarkable. CBD measures 3 mm. Pancreas: Partially obscured by shadowing bowel gas, grossly unremarkable as visualized. Right kidney: 1.0 x 1.1 x 0.6 cm cyst. 11.0 cm in length. Other: No visualized free fluid. Hepatic elastography: Number of measurements: 15 measurements across 3 regions, 5 measurements per region. US probe: CA1-7A. EQI median: 5.7 kPa EQI median velocity: 1.37 m/s IQR/Med: 20.5-27.3% (kPa) and 10.6-13.7% (m/s). If the IQR/Med is IQR/median >30% (for kPa) or >15% in m/s, the variance in the measurements is a large and the accuracy of the measurement may be in question. US/ABD Limited w/ Elastography IMPRESSION: 1. Appearance of the hepatic parenchyma most frequently associated with hepatic steatosis. Correlate for clinical and laboratory evidence of chronic liver disease. 2. Liver stiffness is 5.7 kPa. Per the below 2020 SRU criteria, this rules out compensated advanced chronic liver disease in the absence of other known clinical signs. If there are known clinical signs, furth er testing may be needed for confirmation. 3. Additional description as above. Assessment is per the Update to the SRU Liver Elastography Consensus Statement (2020) Note that the above assessment of liver fibrosis is vendor-neutral and intended for use in fibrosis related to viral etiologies and non-alcoholic fatty-liver disease (NAFLD); in causes other than viral hepat itis and NAFLD, the cutoff values are currently not well established. In some patients with NAFLD, the cutoff values for cACLD may be lower (7-9 kPa). Note also that in the setting of elevated LFTs, nonfasting or vascular congestion, the stage of lifer fibrosis may be overestimated. Previous SRU reference values: <1.37 m/s (5.7kPa): No to mild fibrosis 1.37 m/s - 2.2 m/s: Moderate to severe fibrosis >2.2 m/s (15kPa): Significant fibrosis / cirrhosis Reading Location: [id number]
== END | disposition home or self-care (01) ==
LOC: US 10:02
PROVIDERS: PCP Internal Medicine; Referring Provider Internal Medicine Medical Oncology; Visit Provider Internal Medicine Medical Oncology
DX: K76.0 Fatty (change of) liver, not elsewhere classified (principal)
CPT/HCPCS: 76705; 76981

== ENCOUNTER → 2024-08-19 | Outpatient (CLI) | payer MEDICARE, OTHER, SELFPAY | END | disposition home or self-care (01) | LOC: LAB 12:55 | PROVIDERS: PCP Internal Medicine; Referring Provider Nurse Practitioner; Visit Provider Nurse Practitioner | DX: R30.0 Dysuria (principal) | CPT/HCPCS: 87077; 87086; 87088; 87186 ==

== ENCOUNTER 2024-10-24 07:05 | Day surgery (SDC) | payer MEDICARE, OTHER, SELFPAY ==
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
[2024-10-24] VITALS (8 sets, daily range): BP systolic 114–147; BP diastolic 56–66; PULSE 66–74; RESP 16; TEMP 36.1–36.7; O2SAT 95–98; BMI 24.7
--- OUTSIDE RECORDS SUMMARY | 2024-10-24 07:20 | XMS RPT_ITS | CCD ---
Author Organization [facility] Care Team Providers Care Hoist Cylinder Loader Name Role Phone Tiana Banda MD Primary Care Provider MD Tiana Moreau Primary Care Provider Dr. Hugh Herrera Attending Provider Dr. Tiana Banda Referring Provider Dr. Tiana Banda Primary Care Provider Tiana Banda MD Primary Care Provider Dr. Tiana Banda Primary Care Provider Dr. Tiana Banda Referring Provider ROSANA Meyer Attending Provider Dr. Norbert Tabor Attending Provider ROSANA Meyer Referring Provider ROSANA Meyer Other Provider Dr. Tiana Banda Primary Care Provider Dr. Tiana Banda Referring Provider ORSANA Meyer Attending Provider Dr. Norbert Tabor Attending Provider Dr. Norbert Tabor Referring Provider ROSANA Meyer Referring Provider ROSANA Meyer Other Provider Dr. Tiana Banda Primary Care Provider Dr. Tiana Banda Referring Provider Dr. Hugh Mccain Attending Provider Billie GALLOWAY, Tiana Primary Care Provider GANTA, TIANA Primary Care Unavailable OLDER, VA Referring Unavailable GANTA, TIANA Primary Care Unavailable GANTA, TIANA Primary Care Unavailable PENDLEBURY, KIRK Referring Unavailable GANTA, TIANA Primary Care Unavailable OLDER, VA Attending Unavailable GANTA, TIANA Primary Care Unavailable OLDER, VA Referring Unavailable GANTA, TIANA Primary Care Unavailable OLDER, VA Attending Unavailable GANTA, TIANA Primary Care Unavailable GANTA, TIANA Attending Unavailable KAMLA KELLOGG Attending Unavailable GANTA, TIANA Primary Care Unavailable Sun GALLOWAY, Dr. Bellamy Primary Care Provider Simon SUPERCHARGE REPAIR SUPERVISOR-C, Jessica Attending Provider Simon SUPERCHARGE REPAIR SUPERVISOR-C, Jessica Referring Provider Sun GALLOWAY, Dr. Bellamy Referring Provider Kalyn GALLOWAY, Dr. Reese Attending Provider Sun GALLOWAY, Dr. Bellamy Attending Provider Dr. Feliciano Portillo MD Attending Provider Bandar GALLOWAY, Dr. Wiggins Referring Provider Dr. Luis Enrique Marr MD Attending Provider Dr. Hugh Mccain MD Referring Provider Billie GALLOWAY, Dr. Lowry Primary Care Provider Sun GALLOWAY, Dr. Bellamy Primary Care Provider Sun GALLOWAY, Dr. Bellamy Referring Provider Sun GALLOWAY, Dr. Bellamy Attending Provider Dr. Hugh Mccain MD Attending Provider Billie GALLOWAY, Dr. Lowry Primary Care Provider Romana Rosado Attending Provider Romana Rosado Referring Provider Constantine GALLOWAY, Dr. Rios Attending Provider Sun GALLOWAY, Dr. Bellamy Primary Care Provider Dr. Mia Garsia MD Referring Provider [phone] Oleghe, Efewongbe Referring Unavailable Leighton Will Attending Unavailable Oleghe, Efewongbe Primary Care Unavailable Oleghe, Efewongbe Primary Care Unavailable Oleghe, Efewongbe Referring Unavailable Simon SUPERCHARGE REPAIR SUPERVISOR, Jessica Attending Unavailable Oleghe, Efewongbe Primary Care Unavailable Hugh Mccain Attending Unavailable Hugh Mccain Referring Unavailable Corona Romana Referring Unavailable CoronaRomana Attending Unavailable Oleghe, Efewongbe Primary Care Unavailable Tiana Banda Primary Care Unavailable Hugh Mccain Attending Unavailable Hugh Mccain Referring Unavailable Todd Ryan Attending Unavailable Oleghe, Efewongbe Primary Care Unavailable Oleghe, Efewongbe Referring Unavailable Oleghe, Efewongbe Primary Care Unavailable Simon SUPERCHARGE REPAIR SUPERVISOR, Jessica Referring Unavailable Simon SUPERCHARGE REPAIR SUPERVISOR, Jessica Attending Unavailable Oleghe, Efewongbe Primary Care Unavailable Oleghe, Efewongbe Referring Unavailable Hugh Mccain Attending Unavailable Oleghe, Efewongbe Referring Unavailable Oleghe, Efewongbe Primary Care Unavailable Hugh Mccain Attending Unavailable Libra, Ansley Referring Unavailable Libra Ansley Attending Unavailable Oleghe, Efewongbe Primary Care Unavailable Libra, Ansley Referring Unavailable Libra, Ansley Attending Unavailable Oleghe, Efewongbe Primary Care Unavailable Feliciano Portillo Referring Unavailable BasaliFeliciano Attending Unavailable Oleghe, Efewongbe Primary Care Unavailable Oleghe, Efewongbe Primary Care Unavailable Hugh Mccain Referring Unavailable Hugh Mccain Attending Unavailable Oleghe, Efewongbe Attending Unavailable Oleghe, Efewongbe Primary Care Unavailable Oleghe, Efewongbe Referring Unavailable Oleghe, Efewongbe Referring Unavailable Oleghe, Efewongbe Primary Care Unavailable Oleghe, Efewongbe Attending Unavailable Oleghe, Efewongbe Attending Unavailable Oleghe, Efewongbe Referring Unavailable Oleghe, Efewongbe Primary Care Unavailable Oleghe, Efewongbe Primary Care Unavailable Percy Rodriguez Attending Unavailable Oleghe, Efewongbe Referring Unavailable Ansley Smyth Attending Unavailable Oleghe, Efewongbe Primary Care Unavailable Oleghe, Efewongbe Primary Care Unavailable Oleghe, Efewongbe Referring Unavailable Luis Enrique Marr Attending Unavailable Ganta, Tiana Referring Unavailable Ganta, Tiana Primary Care Unavailable Oleghe, Efewongbe Attending Unavailable Oleghe, Efewongbe Primary Care Unavailable Oleghe, Efewongbe Referring Unavailable Hugh Mccain Attending Unavailable Oleghe, Efewongbe Referring Unavailable Oleghe, Efewongbe Primary Care Unavailable Oleghe, Efewongbe Attending Unavailable Oleghe, Efewongbe Primary Care Unavailable Oleghe, Efewongbe Referring Unavailable Gabriel Fitch Attending Unavailable Oleghe, Efewongbe Attending Unavailable Oleghe, Efewongbe Primary Care Unavailable Oleghe, Efewongbe Referring Unavailable Oleghe, Efewongbe Attending Unavailable Oleghe, Efewongbe Primary Care Unavailable Oleghe, Efewongbe Referring Unavailable Oleghe, Efewongbe Attending Unavailable Oleghe, Efewongbe Primary Care Unavailable Oleghe, Efewongbe Referring Unavailable Allergies Allergy Classification Reported Allergen(s) Allergy Type Date of Onset Reaction(s) Facility (20 sources) Acetaminophen / HYDROcodone; Translations: [HYDROCODONE-ACETAMI NOPHEN] Drug Allergy 1 GI Upset, Vomiting, Other: See Comments [facility] Work Phone: (20 sources) Codeine; Translations: [CODEINE] Drug Allergy 1 GI Upset [facility] Work Phone: (10 sources) HYDROcodone Drug Allergy [address] [facility] (16 sources) Acetaminophen; Translations: [ACETAMINOPHEN] Drug Allergy 2 Mental Status Change [facility] (2 sources) Sulfamethoxazole / Trimethoprim; Translations: [SULFAMETHOXAZOLE-TR IMETHOPRIM] Drug Allergy 4 Itching [facility] (5 sources) Cephalexin Drug Allergy 5 Nausea/Vom/Lyndsay rrhea [facility] (1 source) Cephalexin Drug Allergy [address] [facility] (1 source) Codeine Drug Allergy [address] [facility] (1 source) HYDROcodone Drug Allergy [address] [facility] Medications Current Medications Medication Drug Class(es) Dates Sig (Normalized) Sig (Original) calcium carbonate 1500 mg oral tablet (6 sources) Start: 07-11-2023 take 1 tablet by mouth once daily Calcium Carbonate 600 mg calcium (1,500 mg) tablet Active 1200 mg PO DAILY July 11, 2023 12:00am cholecalciferol 0.125 mg oral tablet (20 sources) Vitamin D Start: 01-25-2024 take 1 tablet by mouth once daily Cholecalciferol (Vitamin D3) 125 mcg (5,000 unit) tablet Active 3000 U PO DAILY January 25, 2024 10:48am Start: 03-06-2023 End: 01-25-2024 take 1 tablet by mouth once daily Cholecalciferol (Vitamin D3) 125 mcg (5,000 unit) tablet Discontinued 250 ug PO DAILY March 06, 2023 4:40pm January 25, 2024 10:49am Start: 04-12-2021 End: 03-06-2023 take 1 tablet by mouth once daily Cholecalciferol (Vitamin D3) 125 mcg (5,000 unit) tablet Discontinued 125 ug PO DAILY April 12, 2021 1:00am March 06, 2023 4:40pm fluconazole 150 mg oral tablet (2 sources) Azole Antifungal Start: 11-12-2023 End: 11-12-2023 take 1 tablet by mouth once fluconazole (DIFLUCAN) 150 mg tablet Take 1 tablet by mouth one time only for 1 dose. 1 tablet 11/12/2023 11/12/2023 Active Start: 11-05-2023 End: 11-05-2023 fluconazole (DIFLUCAN) 150 m g tablet Take 1 tablet by mouth one time only for 1 dose. Repeat in 3 days as needed. 2 tablet 0 11/05/2023 11/05/2023 Active Multivitamin preparation (1 source) Start: 07-11-2023 take 1 tablet by mouth once daily Multivitamin Active 1 TABLET PO DAILY July 11, 2023 12:00am Multivitamin tablet (5 sources) Start: 07-11-2023 Multivitamin tablet Active 1 {tbl} PO DAILY July 11, 2023 12:00am pantoprazole 40 mg delayed release oral tablet (1 source) Proton Pump Inhibitor Start: 08-23-2024 take 1 tablet by mouth 1 hour(s) before breakfast Pantoprazole 40 mg tablet,delayed release (DR/EC) Active 40 mg PO .breakfast 30 30 4 August 23, 2024 12:00am Take 1 hour before breakfast. traZODone hydrochloride 50 mg oral tablet (20 sources) Serotonin Reuptake Inhibitor Start: 08-04-2024 End: 09-05-2024 take 1 tablet by mouth at bedtime Trazodone 50 mg tablet Active 50 mg PO AT BEDTIME 60 3 September 05, 2024 4:23pm pt reports she takes this routinely at bedtime Start: 01-25-2024 End: 08-04-2024 Trazodone 50 mg tablet Disco ntinued 25 mg PO AT BEDTIME 30 0 July 16, 2024 2:37pm August 04, 2024 10:10am pt reports she takes this routinely at bedtime Start: 02-15-2021 End: 04-26-2024 take 1 tablet by mouth at bedtime as needed Trazodone 50 mg tablet Discontinued 50 mg PO AT BEDTIME as needed April 12, 2021 1:00am January 25, 2024 10:49am Comment on above: Take 1 tablet by yesica th daily at bedtime. ubidecarenone 75 mg oral capsule (16 sources) Start: 07-11-2023 Coenzyme Q10 (Ultra Coq10) 75 mg capsule Active 75 mg PO DAILY July 11, 2023 12:00am Start: 04-14-2021 End: 10-06-2021 take 10 tablets by mouth once daily Coenzyme Q10 100 mg tablet Discontinued 100 mg PO DAILY April 14, 2021 1:00am October 06, 2021 10:11am Completed/Discontinued Medications Medication Drug Class(es) Dates Sig (Normalized) Sig (Original) amoxicillin 875 mg / clavulanate 125 mg oral tablet (5 sources) Penicillin-class Antibacterial Start: 12-24-2023 End: 01-25-2024 Amoxicillin-Pot Clavulanate 875-125 mg tablet Discontinued 1 {tbl} PO TWICE A DAY 14 0 December 24, 2023 12:00am January 25, 2024 10:48am cephalexin 500 mg oral capsule (5 sources) Cephalosporin Antibacterial Start: 11-09-2023 End: 11-19-2023 take 1 capsule by mouth four times daily cephALEXin (KEFLEX) 500 mg capsule Take 1 capsule by mouth four times daily for 10 days. 40 capsule 11/09/2023 11/12/2023 Discontinued (Course of therapy completed) Start: 10-26-2022 End: 11-02-2022 take 1 capsule by mouth twice daily cephALEXin (KEFLEX) 500 mg capsule Take 1 capsule by mouth twice daily for 7 days. 14 capsule 0 10/26/2022 11/02/2022 Comment on above: [facility] 7 days. cetirizine hydrochloride 10 mg oral tablet (10 sources) Histamine-1 Receptor Antagonist Start: End: take 1 tablet by mouth once daily as needed Cetirizine 10 mg tablet Discontinued 10 mg PO DAILY as needed April 14, 2021 1:00am June 26, 2022 2:48pm ciprofloxacin 500 mg oral tablet (5 sources) Quinolone Antimicrobial Start: End: take 1 tablet by mouth once daily Ciprofloxacin Hcl (Cipro) 500 mg tablet Discontinued 500 mg PO DAILY 3 3 0 October 10, 2023 12:00am October 12, 2023 12:00am October 13, 2023 12:12am 24 hr dilTIAZem hydrochloride 180 mg extended release oral capsule (20 sources) Calcium Channel Isaura Start: End: take 1 capsule by mouth once daily Diltiazem Hcl 180 mg capsule,extended release 24hr Discontinued 180 mg PO DAILY 90 3 April 26, 2023 5:37pm March 17, 2024 12:12pm Comment on above: Take 1 capsule by [facility] once daily. fluorometholone 1 mg/ml ophthalmic suspension (10 sources) Corticosteroid Start: End: Fluorometholone 0.1 % drops,suspension Discontinued mL OPHTHALMIC June 26, 2022 12:00am March 06, 2023 4:40pm Start: 06-26-2022 End: 03-06-2023 Fluorometholone Discontinued ML OPHTHALMIC June 26, 2022 12:00am March 06, 2023 4:40pm furosemide 20 mg oral tablet (20 sources) Loop Diuretic Start: 06-19-2022 End: 05-07-2023 take 1 tablet by mouth once daily Furosemide 20 mg tablet Discontinued 20 mg PO DAILY June 19, 2022 12:00am March 06, 2023 4:39pm Start: 04-22-2022 take 1 tablet by yesica th once daily furosemide (LASIX) 20 mg tablet Take 1 tablet by mouth once daily. 30 tablet 1 04/22/2022 Active Comment on above: Take 1 tablet by yesica th once daily. nitrofurantoin, macrocrystals 25 mg / nitrofurantoin, monohydrate 75 mg oral capsule (5 sources) Nitrofuran Antibacterial Start: End: take 1 capsule by mouth every twelve hours at mealtime Nitrofurantoin Monohyd/M-Cryst (Macrobid) 100 mg capsule Discontinued 100 mg PO Q12H 14 7 0 September 09, 2023 12:00am September 15, 2023 12:00am September 16, 2023 12:06am must administer with a meal/food omeprazole 40 mg delayed release oral capsule (13 sources) Proton Pump Inhibitor Start: End: take 1 capsule by mouth once daily 30 minutes before breakfast Omeprazole 40 mg capsule,delayed release(DR/EC) Discontinued 40 mg PO daily 30 0 August 01, 2024 1:16pm August 23, 2024 7:18am Take 30 minutes before breakfast perflutren lipid microspheres 1.3 mL in NaCl (PF) 0.9% 10 mL injection (DEFINITY) (15 sources) Start: End: perflutren lipid microspheres 1.3 mL in NaCl (PF) 0.9% 10 mL injection (DEFINITY) potassium chloride 10 meq extended release oral tablet (20 sources) Start: End: take 1 tablet by mouth once daily Potassium Chloride 10 mEq tablet extended release Discontinued 10 meq PO DAILY July 11, 2023 12:00am September 09, 2023 10:21am Start: 07-12-2022 End: 05-07-2023 take 1 tablet by mouth once daily at breakfast potassium chloride (K-TAB) 10 mEq tablet Take 1 tablet by mouth daily with breakfast. 30 tablet 5 07/12/2022 04/27/2023 Discontinued Start: 06-19-2022 End: 06-26-2022 take 1 capsule by mouth once daily Potassium Chloride 10 mEq capsule, extended release Discontinued 10 meq PO DAILY June 19, 2022 12:00am June 26, 2022 2:48pm Start: 04-22-2022 take 1 tablet by yesica th once daily at breakfast potassium chloride (K-TAB) 10 mEq tablet Take 1 tablet by mouth daily with breakfast. 30 tablet 1 04/22/2022 Active Comment on above: Take 1 tablet by yesica th daily with breakfast. predniSONE 5 mg oral tablet (19 sources) Start: 06-19-2022 End: 06-26-2022 Prednisone 5 mg tablet Discontinued 5 mg PO As Directed June 19, 2022 12:00am June 26, 2022 2:48pm see taper instructions Start: 03-16-2022 take 1 tablet by yesica th once daily predniSONE (DELTASONE) 5 mg tablet Take 1 tablet by mouth once daily. 90 tablet 1 03/16/2022 Active Start: 01-17-2022 End: 03-16-2022 predniSONE (DELTASONE) 10 mg tablet Please take 20 mgs for 2 weeks followed by 10 mgs for a couple weeks and then 5mgs to continue. 60 tablet 1 01/17/2022 03/16/2022 Discontinued Comment on above: Please take 20 mgs f or 2 weeks followed by 10 mgs for a couple weeks and then 5mgs to continue. Take 1 tablet by yesica th once daily. raloxifene hydrochloride 60 mg oral tablet (15 sources) Estrogen Agonist/Antagonist Start: 03-20-20 End: 06-19-19 take 1 tablet by mouth once daily Raloxifene (Evista) 60 mg tablet Discontinued 60 mg PO daily 30 May 29, 2024 5:47pm June 18, 2024 2:22pm 125 ml sodium chloride 9 mg/ml prefilled syringe (15 sources) Start: 04-12-19 End: 07-12-19 sodium chloride 0.9 % (flush) 10 mL (BD POSIFLUSH) sulfamethoxazole 800 mg / trimethoprim 160 mg oral tablet (3 sources) Dihydrofolate Reductase Inhibitor Antibacterial, Sulfonamide Antimicrobial Start: 11-08-19 End: 11-15-19 take 1 tablet by mouth twice daily sulfamethoxazole-tr imethoprim (BACTRIM DS) 800-160 mg per tablet Take 1 tablet by mouth two times a day for 7 days. 14 tablet 11/08/2023 11/12/2023 Discontinued (Course of therapy completed) tamoxifen 20 mg oral tablet (20 sources) Estrogen Agonist/Antagonist Start: 02-16-20 End: 03-16-20 take 1 tablet by mouth once daily Tamoxifen 20 mg tablet Discontinued 20 mg PO DAILY April 12, 2021 1:00am October 06, 2021 10:11am Comment on above: Take 20 mg by mouth once daily. tumeric (6 sources) Start: 07-11-19 End: 05-06-19 tumeric Discontinued PO July 11, 2023 12:00am May 06, 2024 2:01pm Start: 07-11-2023 tumeric Active PO July 11, 2023 12:00am Vitamin B Complex (5 sources) Start: 04-12-2021 End: 03-06-2023 take 1 tablet by mouth once daily Vitamin B Complex Discontinued 1 TABLET PO DAILY April 12, 2021 1:00am March 06, 2023 4:40pm Start: 04-12-2021 End: 03-06-2023 take 1 tablet by mouth once daily Vitamin B Complex Discontinued 1 TABLET PO DAILY April 12, 2021 12:00am March 06, 2023 3:40pm Start: 04-12-2021 take 1 tablet by yesica once daily Vitamin B Complex Active 1 TABLET PO DAILY April 12, 2021 1:00am Vitamin B Complex tablet (5 sources) Start: 04-12-2021 End: 03-06-2023 Vitamin B Complex tablet Dis continued 1 {tbl} PO DAILY April 12, 2021 1:00am March 06, 2023 4:40pm Problems Active Problems Problem Classification Problem Date Documented Date Episodic/Chronic Cancer of breast (20 sources) Malignant tumor of breast ; Translations: [Malignant neoplasm of unspecified site of unspecified female breast] Onset: 02-15-2021 02-15-2021 Chronic Comment on above: Had bilateral mastec tomies for R and L breast carcinoma in 2008. Tried AI but did not tolerate it so started Tamoxifen in 2010.Now off Tamoxifen since 2020. Pt was anxious about Metastatic disease.CT c/a/p on 07/04/2022 does not show metastatic disease.Bone scan 07/07/2022 is negative.Comes for follow up.CT 07/04/2023 shows stable changes.No evidence of disease clinically. 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 Diseases of mouth; excluding dental (10 sources) Lesion of tongue; Translations: [Other diseases of tongue] 06-18-2024 Episodic Diseases of white blood cells (13 sources) Leukocytosis; Translations: [Elevated white blood cell count, unspecified] 06-26-2022 Chronic Essential hypertension (20 sources) Essential hypertension; Translations: [Essential (primary) hypertension] Onset: 01-07-2024 04-12-2021 Chronic Gastritis and duodenitis (13 sources) Gastritis; Translations: [Gastritis, unspecified, without bleeding] 06-18-2024 Episodic Genitourinary symptoms and ill-defined conditions (5 sources) Increased frequency of urination; Translations: [Frequency of micturition] Onset: 08-22-2024 10-26-2022 Episodic Hepatitis (6 sources) Nonalcoholic steatohepatitis; Translations: [Nonalcoholic steatohepatitis (SHAHID)] 08-21-2024 Chronic Immunizations and screening for infectious disease (2 sources) Viral screening status; Translations: [Encounter for screening for other viral diseases] Episodic Malaise and fatigue (3 sources) Fatigue; Translations: [Other fatigue] Onset: 08-04-2024 Episodic Nonspecific chest pain (10 sources) Chest pain; Translations: [Chest pain, unspecified] 03-06-2023 Episodic Nutritional deficiencies (1 source) Vitamin D deficiency; Translations: [Vitamin D deficiency, unspecified] Chronic Nutritional deficiencies (1 source) Cobalamin deficiency; Translations: [Deficiency of other specified B group vitamins] Episodic Osteoarthritis (12 sources) Arthritis; Translations: [Unspecified osteoarthritis, unspecified site] Onset: 05-13-2024 Chronic Osteoporosis (1 source) Osteoporosis; Translations: [Other osteoporosis without current pathological fracture] Chronic Other acquired deformities (5 sources) Scoliosis deformity of spine; Translations: [Scoliosis, unspecified] 12-18-2023 Chronic Other acquired deformities (11 sources) Lumbar spondylolisthesis; Translations: [Spondylolisthesis, lumbar region] Episodic Other acquired deformities (1 source) Retrolisthesis; Translations: [Spondylolisthesis, site unspecified] Episodic Other acquired deformities (6 sources) Acquired spondylolisthesis; Translations: [Spondylolisthesis, lumbosacral region] 08-04-2024 Episodic Comment on above: CT on 06/30/2024 shows lumbar spondylolisthesis. Other and ill-defined heart disease (1 source) Diastolic dysfunction; Translations: [Other ill-defined heart diseases] 11-02-2022 Chronic Other and ill-defined heart disease (1 source) Other ill-defined heart diseases; Translations: [Diastolic dysfunction] Onset: 11-16-2022 Chronic Other bone disease and musculoskeletal deformities (5 sources) Osteopenia; Translations: [Other specified disorders of bone density and structure, unspecified site] 12-18-2023 Episodic Other bone disease and musculoskeletal deformities (13 sources) Osteopenia with high fracture risk; Translations: [Other specified disorders of bone density and structure, unspecified site] 06-18-2024 Episodic Other connective tissue disease (11 sources) Polymyalgia rheumatica; Translations: [Polymyalgia rheumatica] Onset: 05-07-2023 Chronic Other connective tissue disease (1 source) Weakness of foot; Translations: [Other symptoms and signs involving the musculoskeletal system] Episodic Other connective tissue disease (2 sources) Muscle weakness; Translations: [Muscle weakness (generalized)] Episodic Other eye disorders (1 source) Dry eyes; Translations: [Dry eye syndrome of unspecified lacrimal gland] Episodic Other female genital disorders (2 sources) Pruritus of vagina; Translations: [Other specified noninflammatory disorders of vagina] 11-05-2023 Episodic Other injuries and conditions due to external causes (5 sources) Closed injury of head; Translations: [Unspecified injury of head, initial encounter] 09-27-2023 Episodic Other liver diseases (12 sources) Steatosis of liver; Translations: [Fatty (change of) liver, not elsewhere classified] 07-14-2024 Chronic Comment on above: US and Liver elastog zachary showed Liver fibrosis moderate fibrosis.. Other liver diseases (1 source) Fatty (change of) liver, not elsewhere classified; Translations: [Fatty (change of) liver, not elsewhere classified] Onset: 07-30-2024 Chronic Other lower respiratory disease (2 sources) Dyspnea on exertion; Translations: [Other forms of dyspnea] Episodic Other lower respiratory disease (1 source) Dyspnea; Translations: [Shortness of breath] Episodic Other lower respiratory disease (1 source) Cough; Translations: [Acute cough] 03-27-2023 Episodic Other lower respiratory disease (5 sources) Rib pain; Translations: [Pleurodynia] 02-11-2024 Episodic Other lower respiratory disease (13 sources) Nodule of lung; Translations: [Solitary pulmonary nodule] 02-13-2024 Episodic Other lower respiratory disease (2 sources) Pleurodynia; Translations: [Pleurodynia] Onset: 02-13-2024 Episodic Other nervous system disorders (20 sources) Piriformis syndrome; Translations: [Lesion of sciatic nerve, unspecified lower limb] Onset: 05-18-2021 Chronic Other nervous system disorders (1 source) Hyperreflexia; Translations: [Abnormal reflex] Episodic Other skin disorders (5 sources) Multiple skin tags; Translations: [Other hypertrophic disorders of the skin] 12-10-2023 Episodic Residual codes; unclassified (2 sources) Menopause present; Translations: [Asymptomatic menopausal state] Episodic Residual codes; unclassified (1 source) Insomnia; Translations: [Insomnia, unspecified] 11-05-2023 Episodic Unclassified (1 source) Acute cough; Translations: [Acute cough] Onset: 03-27-2023 Unclassified (3 sources) K76.0 - Fatty (change of) liver, not elsewhere classified,Z85.3 - Personal history of malignant neoplasm of breast Unclassified (1 source) History of malignant neoplasm of female breast Unclassified (1 source) Low back pain, unspecified; Translations: [Low back pain, unspecified] Onset: 02-11-2024 Past or Other Problems Problem Classification Problem Date Documented Da te Episodic/Chronic Abdominal pain (14 sources) Right upper quadrant pain; Translations: [Right upper quadrant pain] Onset: 03-11-2024 03-11-2024 Episodic Comment on above: CT on 03/07/2024 rev iewed, no evidence of metastatic disease, submucosal thickening in the gastric antrum and Pyloric channel. Discussed causes of abdominal pain with food. Suggested GI evaluation for endoscopy but she declined. Cardiac dysrhythmias (20 sources) Tachycardia; Translations: [Tachycardia, unspecified] Onset: 02-15-2021 02-15-2021 Episodic Fluid and electrolyte disorders (2 sources) Hypokalemia; Translations: [Hypokalemia] Onset: 05-07-2023 05-07-2023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 *Final Report* * * DATE OF EXAM: Mar 27 2023 1:55PM WOX 5291 - XR CHEST 2V FRONTAL/LAT / PROCEDURE REASON: Acute cough * * * * Physician Interpretation * * * * EXAMINATION: CHEST RADIOGRAPH (2 VIEW FRONTAL & LATERAL) CLINICAL HISTORY: Acute cough MQ: XC2_6 EXAM DATE/TIME: 03/27/2023 1:55 PM COMPARISON: Chest x-ray 04/12/2022 RESULT: Lines, tubes, and devices: None. Lungs and pleura: No consolidation. No lung mass. No pleural effusion. No pneumothorax. Cardiomediastinal silhouette: Normal cardiomediastinal silhouette. Bones and soft tissues: Unremarkable. IMPRESSION IMPRESSION: No acute radiographic abnormality. Retail Interior Designer: JEREMY Transcribe Date/Time: Mar 27 2023 2:05P Dictated by : MORRIS CAMERON MD This examination was interpreted and the report reviewed and electronically signed by: MORRIS CAMERON MD on Mar 27 2023 2:07PM EST [facility] Radiology Study observation (narrative) [facility] XR Chest PA and LateralOrder ed By: Cc Provider on 03-27-2023 [facility] CBC W Auto Differential pane l (Bld)on 11-16-2022 Basophils (Bld) [#/Vol] 0.03 10*3/uL Normal <0.11 [facility] Comment on above: Order Comment: Speci men Type: BLOOD SPECIMENOrdering Facility: [facility] Address: [address] [place] [id number] Performed By: #### 5 7021-8 ####[facility] LABCLIA [id number] [address] [place] Basophils/100 WBC (Bld) 0.4 % Normal [facility] Comment on above: Order Comment: Speci men Type: BLOOD SPECIMENOrdering Facility: [facility] Address: [address] [place], [place] [address] Performed By: #### 5 7021-8 ####[facility] LABCLIA [id number] [place] [address] [place] Differential cell count method Nom (Bld) Auto Normal [facility] Comment on above: Order Comment: Speci men Type: BLOOD SPECIMENOrdering Facility: [facility] Address: [address] [place], [place] [address] Performed By: #### 5 7021-8 ####[facility] LABCLIA [id number] [place] [address] [place] Eosinophils (Bld) [#/Vol] 0.30 10*3/uL Normal <0.46 [facility] Comment on above: Order Comment: Speci men Type: BLOOD SPECIMENOrdering Facility: [facility] Address: [address] [place], [place] [address] Performed By: #### 5 7021-8 ####[facility] LABCLIA [id number] [address] [place] Eosinophils/100 WBC (Bld) 4.0 % Normal [facility] Comment on above: Order Comment: Speci men Type: BLOOD SPECIMENOrdering Facility: [facility] Address: [address] [place] [address] Performed By: #### 5 7021-8 ####[facility] LABCLIA [id number] [place] [address] [place] Erythrocyte distribution width (RBC) [Ratio] 13.8 % Normal 11.5-15.0 [facility] Comment on above: Order Comment: Speci men Type: BLOOD SPECIMENOrdering Facility: [facility] Address: [address] Performed By: #### 5 7021-8 ####[facility] LABIA [id number] [place] [address] [place] Hematocrit (Bld) [Volume fraction] 41.6 % Normal 36.0-46.0 [facility] Comment on above: Order Comment: Speci men Type: BLOOD SPECIMENOrdering Facility: [facility] Address: [address] Performed By: #### 5 7021-8 ####[facility] LABIA [id number] [place] [address] [place] Hemoglobin (Bld) [Mass/Vol] 13.5 g/dL Normal 11.5-15.5 [facility] Comment on above: Order Comment: Speci men Type: BLOOD SPECIMENOrdering Facility: [facility] Address: [address] Performed By: #### 5 7021-8 ####[facility] LABIA [id number] [place] [address] [place] Immature granulocytes (Bld) [#/Vol] 0.03 10*3/uL Normal <0.10 [facility] Comment on above: Order Comment: Speci men Type: BLOOD SPECIMENOrdering Facility: [facility] Address: [address] Performed By: #### 5 7021-8 ####[facility] LABIA [id number] [place] [address] [place] Immature granulocytes/100 WBC (Bld) 0.4 % Normal [facility] Comment on above: Order Comment: Speci men Type: BLOOD SPECIMENOrdering Facility: [facility] Address: [address] Performed By: #### 5 7021-8 ####[facility] LABCLIA [id number] [place] [address] [place] Lymphocytes (Bld) [#/Vol] 1.94 10*3/uL Normal 1.00-4.00 [facility] Comment on above: Order Comment: Speci men Type: BLOOD SPECIMENOrdering Facility: [facility] Address: [address] Performed By: #### 5 7021-8 ####[facility] LABCLIA [id number] [address] [place] Lymphocytes/100 WBC (Bld) 25.7 % Normal [facility] Comment on above: Order Comment: Speci men Type: BLOOD SPECIMENOrdering Facility: [facility] Address: [address] [place], [place] [address] Performed By: #### 5 7021-8 ####[facility] LABIA [id number] [place] [address] [place] MCH (RBC) [Entitic mass] 29.2 pg Normal 26.0-34.0 [facility] Comment on above: Order Comment: Speci men Type: BLOOD SPECIMENOrdering Facility: [facility] Address: [address] [place], [place] [address] Performed By: #### 5 7021-8 ####[facility] LABCLIA [id number] [place] [address] [place] MCHC (RBC) [Mass/Vol] 32.5 g/dL Normal 30.5-36.0 [facility] Comment on above: Order Comment: Speci men Type: BLOOD SPECIMENOrdering Facility: [facility] Address: [address] Performed By: #### 5 7021-8 ####[facility] LABIA [id number] [place] [address] [place] MCV (RBC) [Entitic vol] 89.8 fL Normal 80.0-100.0 [facility] Comment on above: Order Comment: Speci men Type: BLOOD SPECIMENOrdering Facility: [facility] Address: [address] [place] [address] Performed By: #### 5 7021-8 ####[facility] LABCLIA [id number] [place] [address] [place] Monocytes (Bld) [#/Vol] 0.85 10*3/uL Normal <0.87 [facility] Comment on above: Order Comment: Speci men Type: BLOOD SPECIMENOrdering Facility: [facility] Address: [address] [place] [address] Performed By: #### 5 7021-8 ####[facility] LABCLIA [id number] [address] [place] Monocytes/100 WBC (Bld) 11.3 % Normal [facility] Comment on above: Order Comment: Speci men Type: BLOOD SPECIMENOrdering Facility: [facility] Address: [address] [place], [place] [address] Performed By: #### 5 7021-8 ####[facility] LABCLIA [id number] [place] [address] [place] Neutrophils (Bld) [#/Vol] 4.40 10*3/uL Normal 1.45-7.50 [facility] Comment on above: Order Comment: Speci men Type: BLOOD SPECIMENOrdering Facility: [facility] Address: [address] [place], [place] [address] Performed By: #### 5 7021-8 ####[facility] LABCLIA [id number] [place] [address] [place] Neutrophils/100 WBC (Bld) 58.2 % Normal [facility] Comment on above: Order Comment: Speci men Type: BLOOD SPECIMENOrdering Facility: [facility] Address: [address] [place] [address] Performed By: #### 5 7021-8 ####[facility] LABCLIA [id number] [place] [address] [facility] Nucleated RBC (Bld) [#/Vol] 10*3/uL Normal <0.01 [facility] Comment on above: Order Comment: Speci men Type: BLOOD SPECIMENOrdering Facility: [facility] Address: [address] Performed By: #### 5 7021-8 ####[facility] LABCLIA [id number] [place] [address] [place] Nucleated RBC/100 WBC (Bld) [Ratio] 0.0 /100 WBC Normal [facility] Comment on above: Order Comment: Speci men Type: BLOOD SPECIMENOrdering Facility: [facility] Address: [address] Performed By: #### 5 7021-8 ####[facility] LABCLIA [id number] [place] [address] [place] Platelet mean volume (Bld) [Entitic vol] 10.1 fL Normal 9.0-12.7 [facility] Comment on above: Order Comment: Speci men Type: BLOOD SPECIMENOrdering Facility: [facility] Address: [address] [place] [address] Performed By: #### 5 7021-8 ####[facility] LABCLIA [id number] [place] [address] [place] Platelets (Bld) [#/Vol] 320 10*3/uL Normal 150-400 [facility] Comment on above: Order Comment: Speci men Type: BLOOD SPECIMENOrdering Facility: [facility] Address: [address] Performed By: #### 5 7021-8 ####[facility] LABCLIA [id number] [place] [address] [place] RBC (Bld) [#/Vol] 4.63 10*6/uL Normal 3.90-5.20 [facility] Comment on above: Order Comment: Speci men Type: BLOOD SPECIMENOrdering Facility: [facility] Address: [address] [place] [address] Performed By: #### 5 7021-8 ####[facility] LABIA [id number] [place] [address] [place] WBC (Bld) [#/Vol] 7.55 10*3/uL Normal 3.70-11.00 [facility] Comment on above: Order Comment: Speci men Type: BLOOD SPECIMENOrdering Facility: [facility] Address: [address] [place] [address] Performed By: #### 5 7021-8 ####[facility] [id number] [place] [address] [place] Comprehensive metabolic 2000 panelon 11-16-2022 Albumin [Mass/Vol] 4.2 g/dL Normal 3.9-4.9 [facility] Comment on above: Order Comment: Speci men Type: BLOOD SPECIMENOrdering Facility: [facility] Address: [address] [place], [place] [address] Performed By: #### 2 4331-1, 65050-5 ####[facility] LABIA [id number] [place] [address] [place] ALP [Catalytic activity/Vol] 87 U/L Normal 34-123 [facility] Comment on above: Order Comment: Speci men Type: BLOOD SPECIMENOrdering Facility: [facility] Address: [address] [place], [place] [address] Performed By: #### 2 4331-1, 37416-8 ####[facility] LABIA [id number] [place] [address] [place] ALT [Catalytic activity/Vol] 14 U/L Normal 7-38 [facility] Comment on above: Order Comment: Speci men Type: BLOOD SPECIMENOrdering Facility: [facility] Address: [address] [place], [place] [address] Performed By: #### 2 4331-1, 19245-1 ####[facility] LABCLIA [id number] [place] [address] [place] Anion gap [Moles/Vol] 10 mmol/L Normal 9-18 [facility] Comment on above: Order Comment: Speci men Type: BLOOD SPECIMENOrdering Facility: [facility] Address: [address] [place], [place] [address] Performed By: #### 2 4331-1, ####[facility] LABCLIA [id number] [address] [place] AST [Catalytic activity/Vol] 26 U/L Normal 13-35 [facility] Comment on above: Order Comment: Speci men Type: BLOOD SPECIMENOrdering Facility: [facility] Address: [address] [place], [place] [address] Performed By: #### 2 4331-1, 77475-4 ####[facility] LABCLIA [id number] [place] [address] [place] Bilirubin [Mass/Vol] 0.5 mg/dL Normal 0.2-1.3 [facility] Comment on above: Order Comment: Speci men Type: BLOOD SPECIMENOrdering Facility: [facility] Address: [address] [place], [place] [address] Performed By: #### 2 4331-1, 88448-5 ####[facility] LABCLIA [id number] [place] [address] [place] Calcium [Mass/Vol] 9.7 mg/dL Normal 8.5-10.2 [facility] Comment on above: Order Comment: Speci men Type: BLOOD SPECIMENOrdering Facility: [facility] Address: [address] Performed By: #### 2 4331-1, ####[facility] LABCLIA [id number] [place] [address] [place] Chloride [Moles/Vol] 98 mmol/L Normal 97-105 [facility] Comment on above: Order Comment: Speci men Type: BLOOD SPECIMENOrdering Facility: [facility] Address: [address] [place] [address] Performed By: #### 2 4331-1, ####[facility] LABCLIA [id number] [address] [place] CO2 [Moles/Vol] 28 mmol/L Normal 22-30 [facility] Comment on above: Order Comment: Speci men Type: BLOOD SPECIMENOrdering Facility: [facility] Address: [address] [place], [place] [address] Performed By: #### 2 4331-1, 25511-3 ####[facility] LABIA [id number] [address] [place] Creatinine [Mass/Vol] 0.56 mg/dL Low 0.58-0.96 [facility] Comment on above: Order Comment: Speci men Type: BLOOD SPECIMENOrdering Facility: [facility] Address: [address] [place], [place] [address] Performed By: #### 2 4331-1, 37269-9 ####[facility] LABCLIA [id number] [address] [place] Creatinine and Glomerular filtration rate.predicted panel (S/P/Bld) 94 mL/min/1.73m??? Normal >=60 [facility] Comment on above: Order Comment: Speci men Type: BLOOD SPECIMENOrdering Facility: [facility] Address: [address] Result Comment: Arminda mated Glomerular Filtration Rate (eGFR) is calculated using the 2020 CKD-EPI creatinine equation. This equation utilizes serum creatinine, sex, and age as parameters. The creatinine assay has traceable calibration to isotope dilution-mass spectrometry. Refer to KDIGO guidelines for clinical interpretation. In patients with unstable renal function, e.g. those with acute kidney injury, the eGFR may not accurately reflect actual GFR. Performed By: #### 2 433-, ####[facility] LABIA [id number] [place] [address] [place] Glucose [Mass/Vol] 99 mg/dL Normal 74-99 [facility] Comment on above: Order Comment: Daya knight Type: BLOOD SPECIMENOrdering Facility: [facility] Address: [address] [place] [address] Result Comment: The [place] Diabetes Association (ADA) provides guidance for cutoff values for fasting glucose and random glucose. The ADA defines fasting as no caloric intake for at least 8 hours. Fasting plasma glucose results between 100 to 125 mg/dL indicate increased risk for diabetes (prediabetes). Fasting plasma glucose results greater than or equal to 126 mg/dL meet the criteria for diagnosis of diabetes. In the absence of unequivocal hyperglycemia, results should be confirmed by repeat testing. In a patient with classic symptoms of hyperglycemia or hyperglycemic crisis, random plasma glucose results greater than or equal to 200 mg/dL meet the criteria for diagnosis of diabetes. Reference: Standards of Medical Care in Diabetes 2016, [place] [employer]. Diabetes Care. 2016.39(Suppl 1). Performed By: #### 2 433-, ####[facility] [id number] [place] [address] [place] Potassium [Moles/Vol] 4.2 mmol/L Normal 3.7-5.1 [facility] Comment on above: Order Comment: Daya knight Type: BLOOD SPECIMENOrdering Facility: [facility] Address: [address] [place] [address] Performed By: #### 2 433-, ####[facility] LABCLIA [id number] [place] [address] [place] Protein [Mass/Vol] 7.2 g/dL Normal 6.3-8.0 [facility] Comment on above: Order Comment: Speci men Type: BLOOD SPECIMENOrdering Facility: [facility] Address: [address] [place] [address] Performed By: #### 2 433-1, ####[facility] LABCLIA [id number] [place] [address] [place] Sodium [Moles/Vol] 136 mmol/L Normal 136-144 [facility] Comment on above: Order Comment: Speci men Type: BLOOD SPECIMENOrdering Facility: [facility] Address: [address] [place] [address] Performed By: #### 2 433-, ####[facility] LABCLIA [id number] [place] [address] [place] Urea nitrogen [Mass/Vol] 8 mg/dL Normal 7-21 [facility] Comment on above: Order Comment: Speci men Type: BLOOD SPECIMENOrdering Facility: [facility] Address: [address] [place] [address] Performed By: #### 2 4331-1, 61849-0 ####[facility] LABCLIA [id number] [place] [address] [place] Lipid 1996 panelon 3 Cholesterol [Mass/Vol] 202 mg/dL High <200 [facility] Comment on above: Order Comment: Speci men Type: BLOOD SPECIMENOrdering Facility: [facility] Address: [address] [place] [address] Result Comment: <200 mg/dL, Desirable 200-239 mg/dL, Borderline high >239 mg/dL, High Performed By: #### 2 433-1, 46099-4 ####[facility] LABCLIA [id number] [address] [facility] Cholesterol in HDL [Mass/Vol] 54 mg/dL Normal >39 [facility] Comment on above: Order Comment: Daya antonia Type: BLOOD SPECIMENOrdering Facility: [facility] Address: [address] [place] [address] Result Comment: 40-5 9 mg/dL, Acceptable >59 mg/dL, High: Negative risk factor for coronary heart disease <40 mg/dL, Low: Positive risk factor for coronary heart disease Performed By: #### 2 4331-1, 73044-2 ####[facility] LABCLIA [id number] [address] Cholesterol in LDL [Mass/Vol] 127 mg/dL High <100 [facility] Comment on above: Order Comment: Daya antonia Type: BLOOD SPECIMENOrdering Facility: [facility] Address: [address] [place] [address] Result Comment: <100 mg/dL, Optimal 100-129 mg/dL, Near optimal/above optimal 130-159 mg/dL, Borderline high 160-189 mg/dL, High >189 mg/dL, Very high Secondary prevention optimal LDL Cholesterol levels are recommended to be < 70 mg/dL Performed By: #### 2 4331-1, 36455-2 ####[facility] LABCLIA [id number] [address] Cholesterol in LDL/Cholesterol in HDL [Mass ratio] 2.35 {ratio} Normal <2.54 [facility] Comment on above: Order Comment: Ryaninga knight Type: BLOOD SPECIMENOrdering Facility: [facility] Address: [address] [place] [address] Result Comment: Hilary ornelas: 1. National Cholesterol Education Program ATP III Guideline At-A-Glance Quick Desk Reference: National Heart, Lung, and Blood Riddle. National Institutes of Health. 2001: NIH Publication No. 01-3305. 2. An International Atherosclerosis Society position paper: global recommendations for the management of dyslipidemia: executive summary, Atherosclerosis. 2014: 232(2):410-413. Performed By: #### 2 4331-1, 04570-2 ####[facility] LABCLIA [id number] [place] [address] [place] Cholesterol in VLDL [Mass/Vol] 21 mg/dL Normal <30 [facility] Comment on above: Order Comment: Speci men Type: BLOOD SPECIMENOrdering Facility: [facility] Address: [address] [place] [address] Performed By: #### 2 4331-1, ####[facility] LABCLIA [id number] [place] [address] [place] Cholesterol non HDL [Mass/Vol] 148 mg/dL High <130 [facility] Comment on above: Order Comment: Speci men Type: BLOOD SPECIMENOrdering Facility: [facility] Address: [address] [place] [address] Result Comment: <130 mg/dL, Optimal 130-159 mg/dL, Near optimal/above optimal 160-189 mg/dL, Borderline high 190-219 mg/dL, High >219 mg/dL, Very high Secondary prevention optimal non HDL Cholesterol levels are recommended to be <100 mg/dL Performed By: #### 2 4331-1, ####[facility] LABCLIA [id number] [place] [address] [place] Cholesterol.total/Chol esterol in HDL [Mass ratio] 3.74 {ratio} Normal <5.10 [facility] Comment on above: Order Comment: Speci men Type: BLOOD SPECIMENOrdering Facility: [facility] Address: [address] [place], [place] [address] Performed By: #### 2 4331-1, ####[facility] LABCLIA [id number] [place] [address] [place] FASTING TIME 12 hrs Normal [facility] Comment on above: Order Comment: Speci men Type: BLOOD SPECIMENOrdering Facility: [facility] Address: [address] [place] [address] Performed By: #### 2 4331-1, 81610-0 ####[facility] LABCLIA [id number] [address] [place] [facility] Triglyceride [Mass/Vol] 106 mg/dL Normal <150 [facility] Comment on above: Order Comment: Speci men Type: BLOOD SPECIMENOrdering Facility: [facility] Address: [address] [place] [address] Result Comment: <150 mg/dL, Normal 150-199 mg/dL, Borderline high 200-499 mg/dL, High >499 mg/dL, Very high Performed By: #### 2 4331-1, 27967-5 ####[facility] LABCLIA [id number] [place] [address] [place] Urinalysis complete panel (U )on 11-16-2022 Bilirubin Ql (U) Negative Normal Negative [facility] Comment on above: Order Comment: Speci men Type: URINE SPECIMENOrdering Facility: [facility] Address: [address] [place] [address] Performed By: #### 2 4356-8 ####[facility] LABCLIA [id number] [place] [address] [place] Clarity (Unsp spec) Clear Normal Clear [facility] Comment on above: Order Comment: Speci men Type: URINE SPECIMENOrdering Facility: [facility] Address: [address] Performed By: #### 2 4356-8 ####[facility] LABCLIA [id number] [address] [place] Color (U) Colorless Normal Yellow [facility] Comment on above: Order Comment: Speci men Type: URINE SPECIMENOrdering Facility: [facility] Address: [address] [place], [place] [address] Performed By: #### 2 4356-8 ####[facility] LABCLIA [id number] [place] [address] [place] Epithelial cells LM.HPF (Urine sed) [#/Area] Few Normal [facility] Comment on above: Order Comment: Speci men Type: URINE SPECIMENOrdering Facility: [facility] Address: [address] [place] [address] Performed By: #### 2 4356-8 ####[facility] LABCLIA [id number] [place] [address] [place] Glucose Test strip (U) [Mass/Vol] Negative Normal Trace, Negative [facility] Comment on above: Order Comment: Speci men Type: URINE SPECIMENOrdering Facility: [facility] Address: [address] [place] [address] Performed By: #### 2 4356-8 ####[facility] LABCLIA [id number] [place] [address] [place] Hemoglobin Ql (U) Negative Normal Negative, Trace [facility] Comment on above: Order Comment: Speci men Type: URINE SPECIMENOrdering Facility: [facility] Address: [address] [place], [place] [address] Performed By: #### 2 4356-8 ####[facility] LABCLIA [id number] [place] [address] [place] Ketones Ql (U) Negative Normal Trace, Negative [facility] Comment on above: Order Comment: Speci men Type: URINE SPECIMENOrdering Facility: [facility] Address: [address] [place], [place] [address] Performed By: #### 2 4356-8 ####[facility] LABCLIA [id number] [place] [address] [place] Leukocyte esterase Test strip Ql (U) Negative Normal Negative, 25 Sun/uL [facility] Comment on above: Order Comment: Speci men Type: URINE SPECIMENOrdering Facility: [facility] Address: [address] [place] [address] Performed By: #### 2 4356-8 ####[facility] LABCLIA [id number] [place] [address] [place] Nitrite Ql (U) Negative Normal Negative [facility] Comment on above: Order Comment: Speci men Type: URINE SPECIMENOrdering Facility: [facility] Address: [address] [place] [address] Performed By: #### 2 4356-8 ####[facility] LABIA [id number] [place] [address] [place] pH (U) 7.5 [pH] Normal 5.0-8.0 [facility] Comment on above: Order Comment: Speci men Type: URINE SPECIMENOrdering Facility: [facility] Address: [address] [place] [address] Performed By: #### 2 4356-8 ####[facility] LABCLIA [id number] [place] [address] [place] Protein (U) [Mass/Vol] Negative Normal Trace , Negative [facility] Comment on above: Order Comment: Speci men Type: URINE SPECIMENOrdering Facility: [facility] Address: [address] [place], [place] [address] Performed By: #### 2 4356-8 ####[facility] LABCLIA [id number] [place] [address] [place] RBC LM.HPF (Urine sed) [#/Area] 0-3 /HPF Normal 0-3 /HPF [facility] Comment on above: Order Comment: Speci men Type: URINE SPECIMENOrdering Facility: [facility] Address: [address] [place] [address] Performed By: #### 2 4356-8 ####[facility] LABCLIA [id number] [place] [address] [place] Specific gravity (U) [Rel density] 1.007 Normal 1.005-1.030 [facility] Comment on above: Order Comment: Speci men Type: URINE SPECIMENOrdering Facility: [facility] Address: [address] [place] [address] Performed By: #### 2 4356-8 ####[facility] LABCLIA [id number] [place] [address] [place] Urobilinogen Ql (U) Negative Normal Negative [facility] Comment on above: Order Comment: Speci men Type: URINE SPECIMENOrdering Facility: [facility] Address: [address] [place] [address] Performed By: #### 2 4356-8 ####[facility] LABIA [id number] [place] [address] [place] WBC LM.HPF (Urine sed) [#/Area] 0-5 /HPF Normal 0-5 /HPF [facility] Comment on above: Order Comment: Speci men Type: URINE SPECIMENOrdering Facility: [facility] Address: [address] [place] [address] Performed By: #### 2 4356-8 ####[facility] LABIA [id number] [place] [address] [place] UA DIP, URINE (POC)on 2022 BILIRUBIN UA (POCT) Negative Negative [facility] CLARITY UA (POCT) Clear [facility] COLOR UA (POCT) Yellow [facility] GLUCOSE UA (POCT) Negative Negative mg/dL [facility] HEMOGLOBIN/BLOOD UA (POCT) Trace-intact Abnormal Negative [facility] KETONE UA (POCT) Negative Negative mg/dL [facility] LEUKOCYTES UA (POCT) Small Abnormal Negative [facility] NITRITE UA (POCT) Negative Negative [facility] PH UA (POCT) 7.0 4.5 - 8.0 [facility] Protein Ql (U) Negative Negative mg/dL [facility] SPECIFIC GRAVITY UA (POCT) 1.015 1.005 - 1.030 [facility] UROBILINOGEN UA (POCT) 0.2 E.U./dL Treva l E.U./dL [facility] Laboratory - Chemistry and C hemistry - challengeOrdered By: Dr. Mccain on 07-11-2022 Free T4 [Mass/Vol] 0.97 ng/dL 0.76-1.46 [facility] No Panel InformationOrdered By: Dr. Mccain on 07-11-2022 Thyroid Stimulating Hormone (TSH) 3.19 uIU/mL 0.358-3.[address] [facility] Absolute lymphocyte countOrd ered By: Dr. Mccain on 06-26-2022 Lymphocytes Auto (Unsp spec) [#/Vol] 2.23 10*3/uL 0.83-4.[address] [facility] Basophil percentageOrdered B y: Dr. Mccain on 06-26-2022 Basophils/100 WBC (Bld) 0.6 % 0-[address] [facility] Bilirubin [Mass/Vol] 0.30 mg/dL 0.20-1.00 [facility] Comment on above: For patients on eltr ombopag therapy, use of Dimension [place] TBIL is not recommended. Chloride [Moles/Vol] 104 mmol/L 98-107 [facility] Eosinophils/100 WBC (Bld) 4.1 % 0-[address] [facility] Glucose [Mass/Vol] 102 mg/dL 74-106 [facility] Comment on above: Fasting Glucose resu lt from 100 to 125 mg/dL suggests IMPAIRED HOMEOSTASIS per A.D.A. criteria. LDH [Catalytic activity/Vol] 220 U/L 84-[address] [facility] Neutrophils (Bld) [#/Vol] 5.0 10*3/uL 2.0-7.[address] [facility] Neutrophils/100 WBC (Bld) 58.4 % 47-[address] [facility] Potassium [Moles/Vol] 3.4 mmol/L 3.5-5.1 [facility] Protein [Mass/Vol] 7.7 g/dL 6.4-8.2 [facility] Sodium [Moles/Vol] 139 mmol/L 136-145 [facility] WBC (Bld) [#/Vol] 8.6 10*3/uL 4.4-11.0 [facility] Blood erythrocytes count (nu mber/volume)Ordered By: Dr. Mccain on 06-26-2022 RBC (Bld) [#/Vol] 4.52 10*6/uL 4.2-5.4 [facility] Blood hemoglobin measurement (mass/volume)Ordered By: Dr. Mccain on 06-26-2022 Hemoglobin (Bld) [Mass/Vol] 13.4 g/dL 12.0-15.[address] [facility] Blood lymphocytes/100 leukoc ytesOrdered By: Dr. Mccain on 06-26-2022 Lymphocytes/100 WBC (Bld) 25.9 % 19-[address] [facility] Blood monocytes/100 leukocyt esOrdered By: Dr. Mccain on 06-26-2022 Monocytes/100 WBC (Bld) 10.7 % 0-[address] [facility] Blood platelet mean volumeOr dered By: Dr. Mccain on 06-26-2022 Platelet mean volume (Bld) [Entitic vol] 9.7 fL 6.2-12.[address] [facility] Determination of erythrocyte mean corpuscular volume (MCV)Ordered By: Dr. Mccain on 06-26-2022 MCV (RBC) [Entitic vol] 88.9 fL 81-[address] [facility] Erythrocyte sedimentation ra teOrdered By: Dr. Mccain on 06-26-2022 ESR (Bld) [Velocity] 20 mm/h 0-30 [facility] Folate [Mass/Vol]Ordered By: Hugh Mccain on 06-26-2022 Folate 36.80 ng/mL 3.1-55.[address] [facility] Hematocrit Auto (Bld) [Volum e fraction]Ordered By: Dr. Mccain on 06-26-2022 Hematocrit (Bld) [Volume fraction] 40.2 % 37-[address] [facility] Iron (Unsp spec) [Mass/Mass] Ordered By: Hugh Mccain on 06-26-2022 Iron [Mass/Vol] 59 ug/dL 50-[address] [facility] Iron measurement (mass/mass) Ordered By: Dr. Mccain on 06-26-2022 Iron (Unsp spec) [Mass/Mass] 59 ug/dL 50-[address] [facility] Iron saturation [Mass fracti on]Ordered By: Hugh Mccain on 06-26-2022 Iron Saturation 18.8 % 15.0-55.[address] [facility] Laboratory - Chemistry and C hemistry - challengeOrdered By: Dr. Mccain on 06-26-2022 ALP [Catalytic activity/Vol] 98 U/L 45-[address] [facility] ALT [Catalytic activity/Vol] 25 U/L 13-[address] [facility] CO2 [Moles/Vol] 29.0 mmol/L 21.0-32.[address] [facility] Cobalamin (Vitamin B12) [Mass/Vol] 1517 pg/mL High 211-[address] [facility] Globulin (S) [Mass/Vol] 4.2 g/dL 2.2-4.[address] [facility] Urea nitrogen/Creatinine [Mass ratio] 18.0 mg/mg 10-[address] [facility] Laboratory - Hematology and Cell countsOrdered By: Dr. Mccain on 06-26-2022 Erythrocyte distribution width (RBC) [Entitic vol] 43.9 fL 35.1-43.[address] [facility] Erythrocyte distribution width (RBC) [Ratio] 13.4 % 11.6-14.[address] [facility] Immature granulocytes/100 WBC (Bld) 0.300 % 0.0-0.[address] [facility] Comment on above: IG% - Immature Granu locytes (promyelocytes, myelocytes and metamyelocytes) > 1% indicates that a LEFT SHIFT is Present. MCH (RBC) [Entitic mass] 29.6 pg 27.0-32.[address] [facility] Nucleated RBC/100 WBC (Bld) [Ratio] 0 % 0-[address] [facility] MCHC Auto (RBC) [Mass/Vol]Or dered By: Dr. Mccain on 06-26-2022 MCHC (RBC) [Mass/Vol] 33.3 g/dL 32-36 [facility] No Panel InformationOrdered By: Dr. Mccain on 06-26-2022 Estimated GFR (MDRD) Amer 100 mL/min >[address] [facility] Comment on above: GFR Calc Estimated GFR (MDRD) Non-Af Amer 83 mL/min >[address] [facility] Comment on above: Non- GFR Calc Total Iron Binding Capacity 314 ug/dL 250-[address] [facility] Platelets bldOrdered By: Dr. Mccain on 06-26-2022 Platelets (Bld) [#/Vol] 329 10*3/uL 150-[address] [facility] Serum or plasma albumin imani urement (mass/volume)Ordered By: Dr. Mccain on 06-26-2022 Albumin [Mass/Vol] 3.5 g/dL 3.2-5.0 [facility] Serum or plasma albumin/glob ulin mass ratioOrdered By: Dr. Mccain on 06-26-2022 Albumin/Globulin [Mass ratio] 0.8 {ratio} 0.9-2.[address] [facility] Serum or plasma calcium imani urement (mass/volume)Ordered By: Dr. Mccain on 06-26-2022 Calcium [Mass/Vol] 9.1 mg/dL 8.5-10.1 [facility] Serum or plasma creatinine m easurement (mass/volume)Ordered By: Dr. Mccain on 06-26-2022 Creatinine [Mass/Vol] 0.72 mg/dL 0.55-1.02 [facility] Comment on above: The validity of the calculated GFR & GFRAA in patients over 70 years has not been determined. Clinical correlation is essential. Serum or plasma ferritin brionna surement (mass/volume)Ordered By: Dr. Mccain on 06-26-2022 Ferritin [Mass/Vol] 75 ng/mL 8-252 [facility] Serum or plasma folate measu rement (mass/volume)Ordered By: Dr. Mccain on 06-26-2022 Folate [Mass/Vol] 36.80 ng/mL 3.1-55.4 [facility] Serum or plasma iron saturat ion measurement (mass fraction)Ordered By: Dr. Mccain on 06-26-2022 Iron saturation [Mass fraction] 18.8 % 15.0-55.[address] [facility] Serum or plasma urea nitroge n measurement (mass/volume)Ordered By: Dr. Mccain on 06-26-2022 Urea nitrogen [Mass/Vol] 13 mg/dL 7-[address] [facility] Thin prep Papanicolaou smear with manual screeningOrdered By: Dr. Mccain on 06-26-2022 Thin prep Papanicolaou smear with manual screening 23 U/L 15-[address] [facility] Thin prep Papanicolaou smear with manual screening 6 5-[address] [facility] CBC W Auto Differential pane l (Bld)on 05-09-2022 Basophils (Bld) [#/Vol] 0.06 10*3/uL <0.11 k/uL [facility] Basophils/100 WBC (Bld) 0.5 % [facility] Differential cell count method Nom (Bld) Auto [facility] Eosinophils (Bld) [#/Vol] 0.36 10*3/uL <0.46 k/uL [facility] Eosinophils/100 WBC (Bld) 2.7 % [facility] Erythrocyte distribution width (RBC) [Ratio] 13.9 % 11.5 - 15.0 % [facility] Hematocrit (Bld) [Volume fraction] 43.3 % 36.0 - 46.0 % [facility] Hemoglobin (Bld) [Mass/Vol] 14.2 g/dL 11.5 - 15.5 g/dL [facility] Immature granulocytes (Bld) [#/Vol] 0.11 10*3/uL High <0.10 k/uL [facility] Immature granulocytes/100 WBC (Bld) 0.8 % [facility] Lymphocytes (Bld) [#/Vol] 2.13 10*3/uL 1.00 - 4.00 k/uL [facility] Lymphocytes/100 WBC (Bld) 16.1 % [facility] MCH (RBC) [Entitic mass] 29.2 pg 26.0 - 34.0 pg [facility] MCHC (RBC) [Mass/Vol] 32.8 g/dL 30.5 - 36.0 g/dL [facility] MCV (RBC) [Entitic vol] 88.9 fL 80.0 - 100.0 fL [facility] Monocytes (Bld) [#/Vol] 1.23 10*3/uL High <0.87 k/uL [facility] Monocytes/100 WBC (Bld) 9.3 % [facility] Neutrophils (Bld) [#/Vol] 9.33 10*3/uL High 1.45 - 7.50 k/uL [facility] Neutrophils/100 WBC (Bld) 70.6 % [facility] Nucleated RBC (Bld) [#/Vol] <0.01 k/uL [facility] Nucleated RBC/100 WBC (Bld) [Ratio] 0.0 /100 WBC [facility] Platelet mean volume (Bld) [Entitic vol] 10.2 fL 9.0 - 12.7 fL [facility] Platelets (Bld) [#/Vol] 297 10*3/uL 150 - 400 k/uL [facility] RBC (Bld) [#/Vol] 4.87 10*6/uL 3.90 - 5.2 0 m/uL [facility] WBC (Bld) [#/Vol] 13.22 10*3/uL High 3.70 - 11.00 k/uL [facility] ESR Westergren method (Bld) [Velocity]on 05-09-2022 ESR (Bld) [Velocity] 12 mm/h 0 - 20 mm/hr [facility] RHEUMATOID FACTOR BLon 05-09 Rheumatoid factor Qn <16 IU/mL [facility] VITAMIN B12 BLOODon 05-09-19 Cobalamin (Vitamin B12) [Mass/Vol] 1178 pg/mL 232 - 1,245 pg/mL [facility] VITAMIN D 25 HYDROXYon 05-09 25-hydroxyvitamin D3 [Mass/Vol] 66.1 ng/mL 31.0 - 80.0 ng/mL [facility] XR CHEST 2V FRONTAL/LATon [facility] XR Chest PA and Lateralon IMPRESSION: No acute radiographic abnormality. Retail Interior Designer: PSCB Transcribe Date/Time: Apr 12 2022 3:47P Dictated by : KATIANA FINK MD This examination was interpreted and the report reviewed and electronically signed by: KATIANA FINK MD on Apr 12 2022 3:47PM [facility] [[email or web address]] DIVISION OF RADIOLOGY * * *Final Report* * * DATE OF EXAM: Apr 12 2022 3:28PM WOX 5291 - XR CHEST 2V FRONTAL/LAT / PROCEDURE REASON: multiple diagnoses * * * * Physician Interpretation * * * * EXAMINATION: CHEST RADIOGRAPH (2 VIEW FRONTAL & LATERAL) CLINICAL HISTORY: Muscle weakness Dyspnea on exertion MQ: XC2_6 EXAM DATE/TIME: 04/12/2022 3:28 PM COMPARISON: No relevant prior studies available. RESULT: Lines, tubes, and devices: None. Lungs and pleura: No consolidation. No lung mass. No pleural effusion. No pneumothorax. Cardiomediastinal silhouette: Normal cardiomediastinal silhouette. Bones and soft tissues: Multilevel degenerative changes of the thoracic spine predominantly in the mid to lower portions. [facility] * * *Final Report* * * DATE OF EXAM: Apr 12 2022 3:28PM WOX 5291 - XR CHEST 2V FRONTAL/LAT / PROCEDURE REASON: multiple diagnoses * * * * Physician Interpretation * * * * EXAMINATION: CHEST RADIOGRAPH (2 VIEW FRONTAL & LATERAL) CLINICAL HISTORY: Muscle weakness Dyspnea on exertion MQ: XC2_6 EXAM DATE/TIME: 04/12/2022 3:28 PM COMPARISON: No relevant prior studies available. RESULT: Lines, tubes, and devices: None. Lungs and pleura: No consolidation. No lung mass. No pleural effusion. No pneumothorax. Cardiomediastinal silhouette: Normal cardiomediastinal silhouette. Bones and soft tissues: Multilevel degenerative changes of the thoracic spine predominantly in the mid to lower portions. IMPRESSION IMPRESSION: No acute radiographic abnormality. Retail Interior Designer: PSCB Transcribe Date/Time: Apr 12 2022 3:47P Dictated by : KATIANA FINK MD This examination was interpreted and the report reviewed and electronically signed by: KATIANA FINK MD on Apr 12 2022 3:47PM EST [facility] Radiology Study observation (narrative) [facility] XR Chest PA and LateralOrder ed By: [facility] Provider on 04-12-2022 [facility] Basic metabolic 2000 panelon 03-16-2022 Anion gap [Moles/Vol] 15 mmol/L 9 - 18 mmol/L [facility] Calcium [Mass/Vol] 10.1 mg/dL 8.5 - 10. 2 mg/dL [facility] Chloride [Moles/Vol] 96 mmol/L Low 97 - 10 5 mmol/L [facility] CO2 [Moles/Vol] 28 mmol/L 22 - 30 mmol/L [facility] Creatinine [Mass/Vol] 0.66 mg/dL 0.58 - 0.96 mg/dL [facility] Estimated Glomerular Filtration Rate 91 mL/min/1.73m >=60 mL/min/1.73 m [facility] Glucose [Mass/Vol] 100 mg/dL High 74 - 99 mg/dL [facility] Potassium [Moles/Vol] 4.1 mmol/L 3.7 - 5.1 mmol/L [facility] Sodium [Moles/Vol] 139 mmol/L 136 - 144 mmol/L [facility] Urea nitrogen [Mass/Vol] 11 mg/dL 7 - 21 mg/dL [facility] C-REACTIVE PROTEIN (CRP)on 1 05-17-2021 CRP [Mass/Vol] 1.2 mg/dL High <0.9 mg/dL [facility] ESR Westergren method (Bld) [Velocity]on 03-16-2022 ESR (Bld) [Velocity] 10 mm/h 0 - 20 mm/hr [facility] XR Lumbar spine 3 Viewson IMPRESSION: Multilevel degenerative changes as detailed. Retail Interior Designer: JEREMY Transcribe Date/Time: May 18 2021 1:38P Dictated by : SJ GUADALUPE MD This examination was interpreted and the report reviewed and electronically signed by: SJ GUADALUPE MD on May 18 2021 1:40PM [facility] [[email or web address]] DIVISION OF RADIOLOGY * * *Final Report* * * DATE OF EXAM: May 18 2021 12:03PM WOX 5228 - XR LUMBAR 3V AP/LAT/L5-S1 / PROCEDURE REASON: Piriformis syndrome, unspecified laterality * * * * Physician Interpretation * * * * CLINICAL INDICATION: Pain TECHNIQUE: 3 view radiographic study of the lumbar spine COMPARISON: None FINDINGS: For the purposes of this report, L5/S1 will be considered the last lumbar-type disc space. Preservation of vertebral body height. Mild to moderate disc space narrowing with marginal osteophyte formation throughout the lumbar spine. Mild grade 1 retrolisthesis of L1 on L2 and of L2 on L3. Grade 1 anterolisthesis of L4 on L5. 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 DIVISION OF RADIOLOGY Provider, [facility] - 05/18/2021 * * *Final Report* * * DATE OF EXAM: May 18 2021 12:03PM WOX 5228 - XR LUMBAR 3V AP/LAT/L5-S1 / PROCEDURE REASON: Piriformis syndrome, unspecified laterality * * * * Physician Interpretation * * * * CLINICAL INDICATION: Pain TECHNIQUE: 3 view radiographic study of the lumbar spine COMPARISON: None FINDINGS: For the purposes of this report, L5/S1 will be considered the last lumbar-type disc space. Preservation of vertebral body height. Mild to moderate disc space narrowing with marginal osteophyte formation throughout the lumbar spine. Mild grade 1 retrolisthesis of L1 on L2 and of L2 on L3. Grade 1 anterolisthesis of L4 on L5. 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 IMPRESSION IMPRESSION: Multilevel degenerative changes as detailed. Retail Interior Designer: PSCB Transcribe Date/Time: May 18 2021 1:38P Dictated by : SJ GUADALUPE MD This examination was interpreted and the report reviewed and electronically signed by: SJ GUADALUPE MD on May 18 2021 1:40PM EST [facility] Radiology Study observation (narrative) [facility] XR Lumbar spine 3 ViewsOrder ed By: [facility] Provider on 05-18-2021 [facility] Vital Signs Date Time Vital Sign Value Performing Clinician Facility 09-25-2024 16:46-0400 Body height 167.[address] Mia Garsia MD Work Phone: [facility] 09-25-2024 16:46-0400 Body mass index (BMI) [Ratio] 25.3 kg/m2 Dr. Mia Garsia MD Work Phone: [facility] 09-25-2024 16:46-0400 Body temperature 97.6 [degF] Dr. Mia Garsia MD Work Phone: [facility] 09-25-2024 16:46-0400 Body weight 71.[address] Mia Garsia MD Work Phone: [facility] 09-25-2024 16:46-0400 Diastolic blood pressure 72 mm[Hg] Dr. Mia Garsia MD Work Phone: [facility] 09-25-2024 16:46-0400 Heart rate 88 /min Dr. Mia Garsia MD Work Phone: [facility] 09-25-2024 16:46-0400 Respiratory rate 16 /min Dr. Mia Garsia MD Work Phone: [facility] 09-25-2024 16:46-0400 SaO2% (BldA) [Mass fraction] 96 % Dr. Mia Garsia MD Work Phone: [facility] 09-25-2024 16:46-0400 Systolic blood pressure 118 mm[Hg] Dr. Mia Garsia MD Work Phone: [facility] 08-21-2024 10:09-0400 Body height 167.[address] Mia Garsia MD Work Phone: [facility] 08-21-2024 10:09-0400 Body mass index (BMI) [Ratio] 26.1 kg/m2 Dr. Mia Garsia MD Work Phone: [facility] 08-21-2024 10:09-0400 Body weight 73.[address] Mia Garsia MD Work Phone: [facility] 08-21-2024 10:09-0400 Diastolic blood pressure 77 mm[Hg] Dr. Mia Garsia MD Work Phone: [facility] 08-21-2024 10:09-0400 Heart rate 94 /min Dr. Mia Garsia MD Work Phone: [facility] 08-21-2024 10:09-0400 SaO2% (BldA) [Mass fraction] 95 % Dr. Mia Garsia MD Work Phone: [facility] 08-21-2024 10:09-0400 Systolic blood pressure 149 mm[Hg] Dr. Mai Garsia MD Work Phone: [facility] 08-04-2024 10:07-0400 Body mass index (BMI) [Ratio] 25.9 kg/m2 Dr. Mia Garsia MD Work Phone: [facility] 08-04-2024 10:07-0400 Body temperature 97.8 [degF] Dr. Mia Garsia MD Work Phone: [facility] 08-04-2024 10:07-0400 Body weight 72.[address] Mia Garsia MD Work Phone: [facility] 08-04-2024 10:07-0400 Diastolic blood pressure 74 mm[Hg] Dr. Mia Garsia MD Work Phone: [facility] 08-04-2024 10:07-0400 Heart rate 78 /min Dr. Mia Garsia MD Work Phone: [facility] 08-04-2024 10:07-0400 Respiratory rate 18 /min Dr. Mia Garsia MD Work Phone: [facility] 08-04-2024 10:07-0400 SaO2% (BldA) [Mass fraction] 97 % Dr. Mia Garsia MD Work Phone: [facility] 08-04-2024 10:07-0400 Systolic blood pressure 156 mm[Hg] Dr. Mia Garsia MD Work Phone: [facility] 07-14-2024 14:16-0400 Body height 167.[address] Mia Garsia MD Work Phone: [facility] 07-14-2024 14:15-0400 Body mass index (BMI) [Ratio] 25.2 kg/m2 Dr. Mia Garsia MD Work Phone: [facility] 07-14-2024 14:15-0400 Body temperature 98.2 [degF] Dr. Mia Garsia MD Work Phone: [facility] 07-14-2024 14:15-0400 Body weight 70.[address] Mia Garsia MD Work Phone: [facility] 07-14-2024 14:15-0400 Diastolic blood pressure 74 mm[Hg] Dr. Mia Garsia MD Work Phone: [facility] 07-14-2024 14:15-0400 Heart rate 72 /min Dr. Mia Garsia MD Work Phone: [facility] 07-14-2024 14:15-0400 Respiratory rate 18 /min Dr. Mia Garsia MD Work Phone: [facility] 07-14-2024 14:15-0400 SaO2% (BldA) [Mass fraction] 97 % Dr. Mia Garsia MD Work Phone: [facility] 07-14-2024 14:15-0400 Systolic blood pressure 128 mm[Hg] Dr. Mia Garsia MD Work Phone: [facility] 06-18-2024 13:44-0400 Body height 167.[address] Mia Garsia MD Work Phone: [facility] 06-18-2024 13:44-0400 Body mass index (BMI) [Ratio] 26.1 kg/m2 Dr. Mia Garsia MD Work Phone: [facility] 06-18-2024 13:44-0400 Body temperature 97.3 [degF] Dr. Mia Garsia MD Work Phone: [facility] 06-18-2024 13:44-0400 Body weight 73.[address] Mia Garsia MD Work Phone: [facility] 06-18-2024 13:44-0400 Diastolic blood pressure 78 mm[Hg] Dr. Mia Garsia MD Work Phone: [facility] 06-18-2024 13:44-0400 Heart rate 85 /min Dr. Mia Garsia MD Work Phone: [facility] 06-18-2024 13:44-0400 Respiratory rate 16 /min Dr. Mia Garsia MD Work Phone: [facility] 06-18-2024 13:44-0400 SaO2% (BldA) [Mass fraction] 96 % Dr. Mia Garsia MD Work Phone: [facility] 06-18-2024 13:44-0400 Systolic blood pressure 122 mm[Hg] Dr. Mia Garsia MD Work Phone: [facility] 05-06-2024 12:59-0500 Diastolic blood pressure 82 mm[Hg] Dr. Mia Garsia MD Work Phone: [facility] 05-06-2024 12:59-0500 Heart rate 83 /min Dr. Mia Garsia MD Work Phone: [facility] 05-06-2024 12:59-0500 Respiratory rate 18 /min Dr. Mia Garsia MD Work Phone: [facility] 05-06-2024 12:59-0500 SaO2% (BldA) [Mass fraction] 96 % Dr. Mia Garsia MD Work Phone: [facility] 05-06-2024 12:59-0500 Systolic blood pressure 130 mm[Hg] Dr. Mia Garsia MD Work Phone: [facility] 03-17-2024 10:40-0500 Body mass index (BMI) [Ratio] 27.2 kg/m2 Dr. Mia Garsia MD Work Phone: [facility] 03-17-2024 10:40-0500 Body temperature 97.4 [degF] Dr. Mia Garsia MD Work Phone: [facility] 03-17-2024 10:40-0500 Body weight 76.[address] Mia Garsia MD Work Phone: [facility] 03-17-2024 10:40-0500 Diastolic blood pressure 70 mm[Hg] Dr. Mia Garsia MD Work Phone: [facility] 03-17-2024 10:40-0500 Heart rate 71 /min Dr. Mia Garsia MD Work Phone: [facility] 03-17-2024 10:40-0500 Respiratory rate 16 /min Dr. Mia Garsia MD Work Phone: [facility] 03-17-2024 10:40-0500 SaO2% (BldA) [Mass fraction] 97 % Dr. Mia Garsia MD Work Phone: [facility] 03-17-2024 10:40-0500 Systolic blood pressure 110 mm[Hg] Dr. Mia Garsia MD Work Phone: [facility] 03-11-2024 15:02-0500 Body mass index (BMI) [Ratio] 27.4 kg/m2 Dr. Mia Garsia MD Work Phone: [facility] 03-11-2024 15:02-0500 Body temperature 98.4 [degF] Dr. Mia Garsia MD Work Phone: [facility] 03-11-2024 15:02-0500 Body weight 77.[address] Mia Garsia MD Work Phone: [facility] 03-11-2024 15:02-0500 Diastolic blood pressure 75 mm[Hg] Dr. Mia Garsia MD Work Phone: [facility] 03-11-2024 15:02-0500 Heart rate 83 /min Dr. Mia Garsia MD Work Phone: [facility] 03-11-2024 15:02-0500 Respiratory rate 18 /min Dr. Mia Garsia MD Work Phone: [facility] 03-11-2024 15:02-0500 SaO2% (BldA) [Mass fraction] 95 % Dr. Mia Garsia MD Work Phone: [facility] 03-11-2024 15:02-0500 Systolic blood pressure 149 mm[Hg] Dr. Mia Garsia MD Work Phone: [facility] 11-12-2023 10:48-0400 Body mass index (BMI) [Ratio] 26.87 kg/m2 Kamla Carter CUT TO LENGTH OPERATOR.WOUND/OSTOMY CLINICAL NURSE SPECIALIST Work Phone: [facility] 11-12-2023 10:48-0400 Body weight 75.5 kg Kamla Carter CUT TO LENGTH OPERATOR.WOUND/OSTOMY CLINICAL NURSE SPECIALIST Work Phone: [facility] 11-12-2023 10:48-0400 Diastolic blood pressure 74 mm[Hg] Kamla Carter CUT TO LENGTH OPERATOR.WOUND/OSTOMY CLINICAL NURSE SPECIALIST Work Phone: [facility] 11-12-2023 10:48-0400 Heart rate 89 /min Kamla Carter CUT TO LENGTH OPERATOR.WOUND/OSTOMY CLINICAL NURSE SPECIALIST Work Phone: [facility] 11-12-2023 10:48-0400 Respiratory rate 14 /min Kamla Carter CUT TO LENGTH OPERATOR.WOUND/OSTOMY CLINICAL NURSE SPECIALIST Work Phone: [facility] 11-12-2023 10:48-0400 SaO2% (BldA) [Mass fraction] 96 % Kamla Carter CUT TO LENGTH OPERATOR.WOUND/OSTOMY CLINICAL NURSE SPECIALIST Work Phone: [facility] 11-12-2023 10:48-0400 Systolic blood pressure 164 mm[Hg] Kamla Carter CUT TO LENGTH OPERATOR.WOUND/OSTOMY CLINICAL NURSE SPECIALIST Work Phone: [facility] 11-08-2023 11:43-0400 Body mass index (BMI) [Ratio] 27.15 kg/m2 Tiana Banda MD Work Phone: [facility] 11-08-2023 11:43-0400 Body weight 76.3 kg Tiana Banda MD Work Phone: [facility] 11-08-2023 11:43-0400 Diastolic blood pressure 70 mm[Hg] Tiana Banda MD Work Phone: [facility] 11-08-2023 11:43-0400 Heart rate 80 /min Tiana Banda MD Work Phone: [facility] 11-08-2023 11:43-0400 SaO2% (BldA) [Mass fraction] 97 % Tiana Banda MD Work Phone: [facility] 11-08-2023 11:43-0400 Systolic blood pressure 142 mm[Hg] Tiana Banda MD Work Phone: [facility] 11-05-2023 09:44-0400 Diastolic blood pressure 74 mm[Hg] Va Older CUT TO LENGTH OPERATOR.WOUND/OSTOMY CLINICAL NURSE SPECIALIST Work Phone: [facility] Comment on above: BP Andrez 11-05-2023 09:44-0400 Systolic blood pressure 124 mm[Hg] Va Older CUT TO LENGTH OPERATOR.WOUND/OSTOMY CLINICAL NURSE SPECIALIST Work Phone: [facility] Comment on above: BP Andrez 11-05-2023 09:05-0400 Body mass index (BMI) [Ratio] 27.28 kg/m2 Va Older CUT TO LENGTH OPERATOR.WOUND/OSTOMY CLINICAL NURSE SPECIALIST Work Phone: [facility] 11-05-2023 09:05-0400 Body weight 76.66 kg Va Older CUT TO LENGTH OPERATOR.WOUND/OSTOMY CLINICAL NURSE SPECIALIST Work Phone: [facility] 11-05-2023 09:05-0400 Heart rate 72 /min Va Older CUT TO LENGTH OPERATOR.WOUND/OSTOMY CLINICAL NURSE SPECIALIST Work Phone: [facility] 11-05-2023 09:05-0400 Respiratory rate 16 /min Va Older CUT TO LENGTH OPERATOR.WOUND/OSTOMY CLINICAL NURSE SPECIALIST Work Phone: [facility] 11-05-2023 09:05-0400 SaO2% (BldA) [Mass fraction] 96 % Va Older CUT TO LENGTH OPERATOR.WOUND/OSTOMY CLINICAL NURSE SPECIALIST Work Phone: [facility] 07-11-2023 10:28-0400 Body height 167.[address] Tiana Banda Work Phone: [facility] 07-11-2023 10:28-0400 Body mass index (BMI) [Ratio] 26.9 kg/m2 Dr. Tiana Banda Work Phone: [facility] 07-11-2023 10:28-0400 Body temperature 96.8 [degF] Dr. Tiana Banda Work Phone: [facility] 07-11-2023 10:28-0400 Body weight 75.[address] Tiana Banda Work Phone: 3([phone] [place] [address] 07-11-2023 10:28-0400 Diastolic blood pressure 87 mm[Hg] Dr. Tiana Banda Work Phone: 2(201)[phone] [place] [address] 07-11-2023 10:28-0400 Heart rate 75 /min Dr. Tiana Banda Work Phone: 9(409)[phone] [place] [address] 07-11-2023 10:28-0400 Respiratory rate 18 /min Dr. Tiana Banda Work Phone: [facility] 07-11-2023 10:28-0400 SaO2% (BldA) [Mass fraction] 96 % Dr. Tiana Banda Work Phone: [facility] 07-11-2023 10:28-0400 Systolic blood pressure 153 mm[Hg] Dr. Tiana Banda Work Phone: [facility] 05-07-2023 09:19-0500 Body weight 76.2 kg Va Older CUT TO LENGTH OPERATOR.WOUND/OSTOMY CLINICAL NURSE SPECIALIST Work Phone: [facility] 05-07-2023 09:19-0500 Diastolic blood pressure 70 mm[Hg] Va Older CUT TO LENGTH OPERATOR.WOUND/OSTOMY CLINICAL NURSE SPECIALIST Work Phone: [facility] 05-07-2023 09:19-0500 Heart rate 84 /min Va Older CUT TO LENGTH OPERATOR.WOUND/OSTOMY CLINICAL NURSE SPECIALIST Work Phone: [facility] 05-07-2023 09:19-0500 Respiratory rate 16 /min Va Older CUT TO LENGTH OPERATOR.WOUND/OSTOMY CLINICAL NURSE SPECIALIST Work Phone: [facility] 05-07-2023 09:19-0500 SaO2% (BldA) [Mass fraction] 97 % Va Older CUT TO LENGTH OPERATOR.WOUND/OSTOMY CLINICAL NURSE SPECIALIST Work Phone: [facility] 05-07-2023 09:19-0500 Systolic blood pressure 128 mm[Hg] Va Older CUT TO LENGTH OPERATOR.WOUND/OSTOMY CLINICAL NURSE SPECIALIST Work Phone: [facility] 03-06-2023 15:37-0500 Body height 167.[address] Tiana Banda Work Phone: [facility] 03-06-2023 15:37-0500 Body mass index (BMI) [Ratio] 27.2 kg/m2 Dr. Tiana Banda Work Phone: [facility] 03-06-2023 15:37-0500 Body weight 76.[address] Tiana Banda Work Phone: [facility] 03-06-2023 15:37-0500 Diastolic blood pressure 85 mm[Hg] Dr. Tiana Banda Work Phone: [facility] 03-06-2023 15:37-0500 Heart rate 90 /min Dr. Tiana Banda Work Phone: [facility] 03-06-2023 15:37-0500 Respiratory rate 18 /min Dr. Tiana Banda Work Phone: [facility] 03-06-2023 15:37-0500 SaO2% (BldA) [Mass fraction] 97 % Dr. Tiana Banda Work Phone: [facility] 03-06-2023 15:37-0500 Systolic blood pressure 146 mm[Hg] Dr. Tiana Banda Work Phone: [facility] 11-02-2022 09:06-0400 Diastolic blood pressure 76 mm[Hg] Va Older CUT TO LENGTH OPERATOR.WOUND/OSTOMY CLINICAL NURSE SPECIALIST Work Phone: [facility] 11-02-2022 09:06-0400 Systolic blood pressure 128 mm[Hg] Va Older CUT TO LENGTH OPERATOR.WOUND/OSTOMY CLINICAL NURSE SPECIALIST Work Phone: [facility] 11-02-2022 08:47-0400 Body temperature 97.59 [degF] Va Older CUT TO LENGTH OPERATOR.WOUND/OSTOMY CLINICAL NURSE SPECIALIST Work Phone: [facility] 11-02-2022 08:47-0400 Body weight 77.11 kg Va Older CUT TO LENGTH OPERATOR.WOUND/OSTOMY CLINICAL NURSE SPECIALIST Work Phone: [facility] 11-02-2022 08:47-0400 Heart rate 76 /min Va Older CUT TO LENGTH OPERATOR.WOUND/OSTOMY CLINICAL NURSE SPECIALIST Work Phone: [facility] 11-02-2022 08:47-0400 Respiratory rate 16 /min Va Older CUT TO LENGTH OPERATOR.WOUND/OSTOMY CLINICAL NURSE SPECIALIST Work Phone: [facility] 11-02-2022 08:47-0400 SaO2% (BldA) [Mass fraction] 98 % Va Older CUT TO LENGTH OPERATOR.WOUND/OSTOMY CLINICAL NURSE SPECIALIST Work Phone: [facility] 10-26-2022 16:49-0400 Body temperature 98.4 [degF] [facility] CUT TO LENGTH OPERATOR.WOUND/OSTOMY CLINICAL NURSE SPECIALIST Work Phone: [facility] 10-26-2022 16:49-0400 Body weight 77.11 kg [facility] CUT TO LENGTH OPERATOR.WOUND/OSTOMY CLINICAL NURSE SPECIALIST Work Phone: [facility] 10-26-2022 16:49-0400 Diastolic blood pressure 70 mm[Hg] [facility] CUT TO LENGTH OPERATOR.WOUND/OSTOMY CLINICAL NURSE SPECIALIST Work Phone: [facility] 10-26-2022 16:49-0400 Heart rate 84 /min [facility] CUT TO LENGTH OPERATOR.WOUND/OSTOMY CLINICAL NURSE SPECIALIST Work Phone: [facility] 10-26-2022 16:49-0400 Respiratory rate 16 /min [facility] CUT TO LENGTH OPERATOR.WOUND/OSTOMY CLINICAL NURSE SPECIALIST Work Phone: [facility] 10-26-2022 16:49-0400 SaO2% (BldA) [Mass fraction] 96 % [facility] CUT TO LENGTH OPERATOR.WOUND/OSTOMY CLINICAL NURSE SPECIALIST Work Phone: [facility] 10-26-2022 16:49-0400 Systolic blood pressure 138 mm[Hg] [facility] CUT TO LENGTH OPERATOR.WOUND/OSTOMY CLINICAL NURSE SPECIALIST Work Phone: [facility] 07-11-2022 11:05-0400 Body height 167.64 cm MD Tiana DEMARCO [facility] 07-11-2022 11:05-0400 Body mass index (BMI) [Ratio] 27.5 kg/m2 MD Tiana DEMARCO [facility] 07-11-2022 11:05-0400 Body temperature 98.2 [degF] MD Tiana DEMARCO [facility] 07-11-2022 11:05-0400 Body weight 77.36 kg MD Tiana DEMARCO [facility] 07-11-2022 11:05-0400 Diastolic blood pressure 78 mm[Hg] MD Tiana DEMARCO [facility] 07-11-2022 11:05-0400 Heart rate 84 /min MD Tiana DEMARCO [facility] 07-11-2022 11:05-0400 Respiratory rate 16 /min MD Tiana DEMARCO [facility] 07-11-2022 11:05-0400 SaO2% (BldA) [Mass fraction] 97 % MD Tiana Banda [facility] 07-11-2022 11:05-0400 Systolic blood pressure 151 mm[Hg] MD Tiana DEMARCO [facility] 06-26-2022 14:48-0400 Body height 167.64 cm MD Tiana DEMARCO [facility] 06-26-2022 14:37-0400 Body mass index (BMI) [Ratio] 27.6 kg/m2 MD Tiana DEMARCO [facility] 06-26-2022 14:37-0400 Body temperature 98.6 [degF] MD Tiana DEMARCO [facility] 06-26-2022 14:37-0400 Body weight 77.76 kg MD Tiana DEMARCO [facility] 06-26-2022 14:37-0400 Diastolic blood pressure 79 mm[Hg] MD Tiana DEMARCO [facility] 06-26-2022 14:37-0400 Heart rate 86 /min MD Tiana DEMARCO [facility] 06-26-2022 14:37-0400 Respiratory rate 17 /min MD Tiana DEMARCO [facility] 06-26-2022 14:37-0400 SaO2% (BldA) [Mass fraction] 97 % MD Tiana Banda [facility] 06-26-2022 14:37-0400 Systolic blood pressure 137 mm[Hg] MD Tiana Banda [facility] 05-09-2022 08:59-0500 Body height 167.6 cm Tiana Banda MD Work Phone: [facility] 05-09-2022 08:59-0500 Body temperature 96.6 [degF] Tiana Banda MD Work Phone: [facility] 05-09-2022 08:59-0500 Body weight 78.02 kg Tiana Banda MD Work Phone: [facility] 05-09-2022 08:59-0500 Diastolic blood pressure 60 mm[Hg] Tiana Banda MD Work Phone: [facility] 05-09-2022 08:59-0500 Heart rate 79 /min Tiana Banda MD Work Phone: [facility] 05-09-2022 08:59-0500 Respiratory rate 18 /min Tiana Banda MD Work Phone: [facility] 05-09-2022 08:59-0500 SaO2% (BldA) [Mass fraction] 97 % Tiana Banda MD Work Phone: [facility] 05-09-2022 08:59-0500 Systolic blood pressure 112 mm[Hg] Tiana Banda MD Work Phone: [facility] 04-12-2022 13:33-0500 Body height 167.6 cm Tiana Banda MD Work Phone: [facility] 04-12-2022 13:33-0500 Body temperature 99.1 [degF] Tiana Banda MD Work Phone: [facility] 04-12-2022 13:33-0500 Body weight 77.11 kg Tiana Banda MD Work Phone: [facility] 04-12-2022 13:33-0500 Diastolic blood pressure 60 mm[Hg] Tiana Banda MD Work Phone: [facility] 04-12-2022 13:33-0500 Heart rate 94 /min Tiana Banda MD Work Phone: [facility] 04-12-2022 13:33-0500 Respiratory rate 14 /min Tiana Banda MD Work Phone: [facility] 04-12-2022 13:33-0500 SaO2% (BldA) [Mass fraction] 97 % Tiana Banda MD Work Phone: [facility] 04-12-2022 13:33-0500 Systolic blood pressure 136 mm[Hg] Tiana Banda MD Work Phone: [facility] 03-16-2022 09:33-0500 Body weight 75.75 kg Va Older CUT TO LENGTH OPERATOR.WOUND/OSTOMY CLINICAL NURSE SPECIALIST Work Phone: [facility] 03-16-2022 09:33-0500 Diastolic blood pressure 60 mm[Hg] Va Older CUT TO LENGTH OPERATOR.WOUND/OSTOMY CLINICAL NURSE SPECIALIST Work Phone: [facility] 03-16-2022 09:33-0500 Heart rate 80 /min Va Older CUT TO LENGTH OPERATOR.WOUND/OSTOMY CLINICAL NURSE SPECIALIST Work Phone: [facility] 03-16-2022 09:33-0500 Respiratory rate 16 /min Va Older CUT TO LENGTH OPERATOR.WOUND/OSTOMY CLINICAL NURSE SPECIALIST Work Phone: [facility] 03-16-2022 09:33-0500 Systolic blood pressure 128 mm[Hg] Va Older CUT TO LENGTH OPERATOR.WOUND/OSTOMY CLINICAL NURSE SPECIALIST Work Phone: [facility] 01-17-2022 09:27-0400 Body height 167.6 cm Tiana Banda MD Work Phone: [facility] 01-17-2022 09:27-0400 Body temperature 98.91 [degF] Tiana Banda MD Work Phone: [facility] 01-17-2022 09:27-0400 Body weight 75.75 kg Tiana Banda MD Work Phone: [facility] 01-17-2022 09:27-0400 Diastolic blood pressure 58 mm[Hg] Tiana Banda MD Work Phone: [facility] 01-17-2022 09:27-0400 Heart rate 81 /min Tiana Banda MD Work Phone: [facility] 01-17-2022 09:27-0400 Respiratory rate 14 /min Tiana Banda MD Work Phone: [facility] 01-17-2022 09:27-0400 SaO2% (BldA) [Mass fraction] 97 % Tiana Banda MD Work Phone: [facility] 01-17-2022 09:27-0400 Systolic blood pressure 120 mm[Hg] Tiana Banda MD Work Phone: [facility] 08-18-2021 11:57-0400 Body weight 70.94 kg Tiana Banda MD Work Phone: [facility] 08-18-2021 11:57-0400 Diastolic blood pressure 58 mm[Hg] Tiana Banda MD Work Phone: [facility] 08-18-2021 11:57-0400 Heart rate 75 /min Tiana Banda MD Work Phone: [facility] 08-18-2021 11:57-0400 Respiratory rate 16 /min Tiana Banda MD Work Phone: [facility] 08-18-2021 11:57-0400 SaO2% (BldA) [Mass fraction] 97 % Tiana Banda MD Work Phone: [facility] 08-18-2021 11:57-0400 Systolic blood pressure 110 mm[Hg] Tiana Banda MD Work Phone: [facility] Encounters Encounter Date Encounter Type Care Provider Facility Start: 10-24-2024 ambulatory Todd [place] Facility :[facility] Start: 09-25-2024 End: 09-25-[address] Mia Garsia MD -[facility] Work Phone: Start: 09-25-2024 End: 09-25-[address] Mia Garsia MD Work Phone: -[facility] Start: 08-21-2024 End: 08-21-[address] Gabriel Fitch MD -[facility] Work Phone: Start: 08-21-2024 End: 08-21-[address] Mia Garsia MD Work Phone: [facility] Work Phone: Start: 08-19-2024 End: 08-19-[address] Mia Garsia MD Work Phone: [facility] Work Phone: Start: 08-19-2024 End: 08-19-2024 Patient encounter procedure Romanacasey Rosado -Laboratory Work Phone: Start: 08-19-2024 End: 08-19-2024 ambulatory Romana Corona Facility:[facility] Start: 08-04-2024 End: 08-04-[address] Hugh Mccain MD -[facility] Work Phone: Start: 08-04-2024 End: 08-04-2024 ambulatory [facility] Start: 07-23-2024 End: 07-23-[address] Mia Garsia MD Work Phone: [facility] Work Phone: Start: 07-23-2024 End: 07-23-[address] Hugh Mccain MD -Ultrasound, [facility] Work Phone: Start: 07-23-2024 End: 07-23-2024 ambulatory [facility] Facility:[facility] Start: 07-14-2024 ambulatory [facility] Facility:[facility] Start: 07-14-[address] Hugh Mccain MD -[facility] Start: 07-14-2024 End: 07-14-[address] Hugh Mccain MD -[facility] Work Phone: Start: 07-14-2024 End: 07-14-20[facility] Start: 06-30-[address] Hugh Mccain MD -[facility] Start: 06-30-2024 End: 06-30-[address] Mia Garsia MD Work Phone: [facility] Work Phone: Start: 06-30-2024 End: 06-30-[address] Hugh Mccain MD -Cat Scan, [facility] Work Phone: Start: 06-30-2024 End: 06-30-2024 ambulatory [facility] Facility:[facility] Start: 06-18-2024 End: 06-18-[address] Mia Garsia MD -[facility] Work Phone: Start: 06-18-2024 End: 06-18-2024 ambulatory [facility] Facility:[facility] Start: 05-06-2024 End: 05-06-[address] Luis Enrique Marr MD -[facility] Work Phone: Start: 05-06-2024 End: 05-06-2024 ambulatory [facility] Facility:[facility] Start: 04-24-2024 End: 04-24-[address] Feliciano Portillo MD -Radiology, [facility] Work Phone: Start: 04-24-2024 End: 04-24-2024 ambulatory Feliciano Portillo Facility:[facility] Start: 03-17-2024 End: 03-17-[address] Mia Garsia MD -[facility] Work Phone: Start: 03-17-2024 End: 03-17-2024 [facility] Start: 03-11-2024 End: 03-11-[address] Hugh Mccain MD -[facility] Work Phone: Start: 03-11-2024 End: 03-11-2024 ambulatory [facility] Facility:[facility] Start: 03-07-2024 End: 03-07-2024 Patient encounter procedure Jessica Montes SUPERCHARGE REPAIR SUPERVISOR-C -Cat Scan, [facility] Work Phone: Start: 03-07-2024 End: 03-07-2024 ambulatory [facility]leg[facility] Facility:[facility] Start: 02-13-2024 End: 02-13-2024 ambulatory [facility] Facility:[facility] Start: 02-08-2024 End: 02-08-2024 ambulatory [facility] Facility:[facility] Start: 01-31-2024 End: 01-31-2024 [facility] Start: 01-25-2024 End: 01-25-2024 ambulatory [facility] Start: 01-21-2024 End: 01-21-2024 ambulatory [facility] Facility:[facility] Start: 12-27-2023 End: 12-27-2023 [facility] Start: 12-21-2023 End: 12-21-2023 [facility] Start: 12-18-2023 End: 12-18-2023 ambulatory [facility] Olee Facility:[facility] Start: 12-10-[address] Jaron Garsia MD Work Phone: [facility] Start: 12-10-2023 End: 12-10-2023 ambulatory [facility] Facility:[facility] Start: 12-10-2023 End: 12-10-20[facility] Start: 11-12-2023 End: 11-12-2023 ambulatory KAMLA KELLOGG Facility:[facility] Start: 11-12-2023 End: 11-12-2023 Patient encounter procedure Kamla Kellogg CUT TO LENGTH OPERATOR.WOUND/OSTOMY CLINICAL NURSE SPECIALIST Work Phone: [facility] Comment on above: Recurrent UTI (Prima ry Dx); Malaise; Vaginal itching; Dysuria Start: 11-09-2023 End: 11-10-2023 Telephone encounter Tiana Banda MD Work Phone: [facility] Comment on above: Medication Problem; ? reaction to bactrim rx Start: 11-08-2023 Telephone encounter Tiana austin MD Work Phone: [facility] Comment on above: Future Appointment Start: 11-08-2023 End: 11-08-2023 ambulatory TIANA BANDA Facility:[facility] Start: 11-08-2023 End: 11-08-2023 Office outpatient visit 25 minutes Tiana Banda MD Work Phone: [facility] Comment on above: Urgency of urination (Primary Dx); Recurrent UTI; UTI symptoms Start: 11-05-2023 End: 11-05-2023 ambulatory TIANA BANDA Facility:[facility] Start: 11-05-2023 End: 11-05-2023 Patient encounter procedure Va Meyers APRN.CNP Work Phone: [facility] Comment on above: Tachycardia (Primary Dx); Insomnia, unspecified type; Vaginal itching; Screening for depression; Encounter for screening examination for other mental health and behavioral disorders; Annual physical exam Start: 08-11-2023 Refill Va Meyers APRN, .CNP Work Phone: Internal [facility] Comment on above: Refill Request Start: 07-11-2023 End: 07-11-[address] Tiana Banda Work Phone: [facility] Work Phone: Start: 07-11-[address] Ashli Banda Work Phone: [facility] Start: 07-04-2023 End: 07-04-[address] Tiana Banda Work Phone: [facility] Work Phone: Start: 07-04-2023 End: 07-04-[address] Tiana Banda Work Phone: [facility]-Cat Scan, [facility] Work Phone: Start: 06-07-2023 End: 06-07-[address] Tiana Banda Work Phone: [facility] Work Phone: Start: 06-07-2023 End: 06-07-[address] Tiana Banda Work Phone: [facility]-Laboratory, Specimen Work Phone: Start: 05-16-2023 ambulatory Va GuillermoWOUND/OSTOMY CLINICAL NURSE SPECIALIST Work Phone: [facility] Comment on above: Potassium meds after lab results Start: 05-07-2023 End: 05-07-2023 ambulatory TIANA BANDA Facility:[facility] Start: 05-07-2023 End: 05-07-2023 Patient encounter procedure Va Meyers APRN.WOUND/OSTOMY CLINICAL NURSE SPECIALIST Work Phone: [facility] Comment on above: Tachycardia (Primary Dx); Hypokalemia; Spinal stenosis of lumbar region with neurogenic claudication; Foraminal stenosis of lumbar region; Polymyalgia rheumatica (HCC) Start: 04-30-2023 Non-patient / Non-visit Dr. Giana Banda Work Phone: [facility] Start: 04-27-2023 End: 04-27-2023 Refill Tiana Banda MD Work Phone: [facility] Comment on above: Refill Request Start: 04-27-2023 Non-patient / Non-visit Dr. Giana Banda Work Phone: [facility] Start: 04-27-2023 End: 04-27-[address] Tiana Banda Work Phone: [facility]-Cardiovascular Services Work Phone: Start: 03-27-2023 End: 03-27-2023 Subsequent hospital visit by physician [facility] Work Phone: Radiology Comment on above: Acute cough [R05.1] Start: 03-27-2023 End: 03-27-2023 ambulatory TIANA BANDA Facility:[facility] Start: 03-06-2023 End: 03-06-[address] Tiana Banda Work Phone: [facility] Work Phone: Start: 11-21-2022 ambulatory Tiana Grace Work Phone: [facility] Comment on above: Opened In Error Refill Request Start: 11-16-2022 End: 11-16-2022 ambulatory [facility] Facility:[facility] Start: 11-02-2022 End: 11-02-2022 Patient encounter procedure Va Meyers APRN.WOUND/OSTOMY CLINICAL NURSE SPECIALIST Work Phone: [facility] Comment on above: Urinary tract infect ion without hematuria, site unspecified (Primary Dx); Diastolic dysfunction; Lipid screening Start: 10-28-2022 Telephone encounter Aubrie mullen PA-C Work Phone: [facility] Comment on above: Results Start: 10-26-2022 End: 10-26-2022 Office outpatient visit 25 minutes Kirk Pearl APRN.WOUND/OSTOMY CLINICAL NURSE SPECIALIST Work Phone: [facility] Comment on above: Urinary frequency (P rimary Dx) Start: 07-11-2022 Registered Recurring MD Tiana DEMARCO [facility] Start: 07-11-2022 End: 07-11-2022 Patient encounter procedure MD Tiana DEMARCO [facility] Start: 07-07-2022 End: 07-07-2022 ambulatory MD Tiana Banda [facility] Work Phone: Start: 07-07-2022 End: 07-07-2022 Patient encounter procedure MD Tiana DEMARCO [facility]-Nuclear Medicine, [facility] Start: 07-04-2022 End: 07-04-2022 ambulatory MD Tiana Banda [facility] Work Phone: Start: 07-04-2022 End: 07-04-2022 Patient encounter procedure MD Tiana DEMARCO [facility], [facility] Start: 06-26-2022 Registered Recurring MD Tiana DEMARCO [facility] Start: 06-26-2022 End: 06-26-2022 Patient encounter procedure MD Tiana DEMARCO [facility] Start: 06-05-2022 Telephone encounter Tiana austin MD Work Phone: [facility] Comment on above: Fax Request Start: 06-03-2022 Registered Referred MD Tiana DEMARCO [facility] Start: 05-09-2022 End: 05-09-2022 Patient encounter procedure Tiana Banda MD Work Phone: [facility] Comment on above: Spinal stenosis of l umbar region with neurogenic claudication (Primary Dx); Foraminal stenosis of lumbar region; Bilateral malignant neoplasm of breast in female, unspecified estrogen receptor status, unspecified site of breast (HCC); Other fatigue; Vitamin B12 deficiency; Vitamin D deficiency; Dry eye; Arthritis Start: 05-05-2022 Telephone encounter Tiana austin MD Work Phone: [facility] Comment on above: Results Start: 04-20-2022 Telephone encounter Tiana austin MD Work Phone: [facility] Comment on above: Results; Orders Start: 04-13-2022 Telephone encounter Tiana austin MD Work Phone: [facility] Comment on above: Results Start: 04-12-2022 End: 04-12-2022 Subsequent hospital visit by physician Kalpesh [facility] Work Phone: Radiology Comment on above: Muscle weakness [M62 .81] Start: 04-12-2022 End: 04-12-2022 Patient encounter procedure Tiana Banda MD Work Phone: [facility] Comment on above: Lumbosacral radiculo ariadne at L5 (Primary Dx); Bilateral malignant neoplasm of breast in female, unspecified estrogen receptor status, unspecified site of breast (HCC); Lumbar radiculopathy; Brisk deep tendon reflexes; Weakness of foot, unspecified laterality; Muscle weakness; Dyspnea on exertion; Shortness of breath; Spinal stenosis of lumbar region with neurogenic claudication Start: 03-16-2022 End: 03-16-2022 Patient encounter procedure Va Meyers APRN.CNP Work Phone: [facility] Comment on above: Polymyalgia rheumati ca (HCC) (Primary Dx) Start: 01-17-2022 End: 01-17-2022 Patient encounter procedure Tiana Banda MD Work Phone: [facility] Comment on above: Polymyalgia rheumati ca (HCC) (Primary Dx) Start: 10-26-2021 Refill Tiana Grace Work Phone: [facility] Comment on above: Refill Request Start: 08-25-2021 Telephone encounter Tiana austin MD Work Phone: [facility] Comment on above: Results Start: 08-23-2021 End: 08-23-2021 Subsequent hospital visit by physician [facility] Work Phone: Radiology Comment on above: Canceled (CC cx: Equ ipment, Prep, Appropriateness) Start: 08-18-2021 End: 08-18-2021 Patient encounter procedure Tiana Banda MD Work Phone: [facility] Comment on above: Anterolisthesis of l umbar spine (Primary Dx); Retrolisthesis of vertebrae; Special screening examination for viral disease; Screening for osteoporosis; Asymptomatic menopause; Other osteoporosis, unspecified pathological fracture presence; Encounter for immunization Start: 07-14-2021 End: 07-14-2021 ambulatory Cait O'Tan PT Work Phone: [facility] Comment on above: Piriformis syndrome, unspecified laterality Start: 07-11-2021 End: 07-11-2021 ambulatory Cait O'Tan PT Work Phone: [facility] Comment on above: Piriformis syndrome, unspecified laterality Start: 06-27-2021 End: 06-27-2021 ambulatory Cait O'Tan PT Work Phone: [facility] Comment on above: Piriformis syndrome, unspecified laterality Start: 06-22-2021 End: 06-22-2021 ambulatory Cait Castorena'Tan PT Work Phone: [facility] Comment on above: Piriformis syndrome, unspecified laterality Start: 05-18-2021 End: 05-18-2021 Subsequent hospital visit by physician [facility] Work Phone: Radiology Comment on above: Piriformis syndrome, unspecified laterality [G57.00] Procedures Date Procedure Procedure Detail Performing Clinician Start: 08-19-[address] Sandra Garsia MD Work Phone: Start: 07-23-2024 Ultrasound elastogra phy of liver Dr. Mia Garsia MD Work Phone: Start: 06-30-[address] Mia Garsia MD Work Phone: Start: 06-30-2024 CT of thorax, abdome n and pelvis with contrast Dr. Mia Garsia MD Work Phone: Start: 04-24-2024 Plain x-ray of pelvi s and lower extremity Dr. Mia Garsia MD Work Phone: Start: 03-07-2024 CT of abdomen with contrast Dr. Mia Garsia MD Work Phone: Start: 02-13-2024 Measurement of renal function Dr. Mia Garsia MD Work Phone: Comment on above: GFR Calc Start: 11-12-2023 Urnls dip stick/tabl et rgnt auto w/o microscopy Kamla Kellogg CUT TO LENGTH OPERATOR.WOUND/OSTOMY CLINICAL NURSE SPECIALIST Work Phone: Start: 11-08-2023 Urnls dip stick/tabl et rgnt auto w/o microscopy Tiana Banda MD Work Phone: Start: 11-05-2023 Adult depression scr eening assessment Va Mira CUT TO LENGTH OPERATOR.WOUND/OSTOMY CLINICAL NURSE SPECIALIST Work Phone: Start: 07-04-2023 CT of chest and abdomen Dr. Tiana Banda Work Phone: Start: 06-07-2023 Investigation of transfusion reaction Dr. Tiana Banda Work Phone: Start: 06-07-2023 Microbial culture, routine Dr. Tiana Banda Work Phone: Start: 04-27-2023 Cardiovascular stres s test using pharmacologic stress agent Dr. Tiana Banda Work Phone: Start: 03-27-2023 Radiologic exam ches t 2 views Kirk Pearl CUT TO LENGTH OPERATOR.WOUND/OSTOMY CLINICAL NURSE SPECIALIST Work Phone: Start: 10-26-2022 Urnls dip stick/tabl et rgnt auto w/o microscopy Aubrie De Santiago PA-C Work Phone: Start: 07-07-2022 Radionuclide whole b isabel bone study MD Tiana DEMARCO Start: 07-04-2022 CT of chest and abdomen MD Tiana DEMARCO Start: 04-12-2022 Radiologic exam ches t 2 views Tiana Banda MD Work Phone: Start: 08-18-2021 Adult depression scr eening assessment Tiana Banda MD Work Phone: Start: 05-18-2021 Radex spine lumbosac ral 2/3 views Tiana Banda MD Work Phone: Start: 04-20-2021 Colonoscopy Cait Maddox PT Work Phone: Plan of Treatment Date Care Activity Detail Author Start: 08-18-2031 Urine microalbumin profile [facility] Start: 04-20-2031 Colonoscopy COLONOSCOPY [facility] Start: 04-20-2031 COLORECTAL CANCER SCREENING COLORECTAL CANCER SCREENING [facility] Start: 05-07-2026 Diabetes Screening Diabetes Screenin g [facility] Start: 02-08-2026 LIPID SCREEN LIPID SCREEN [facility] Start: 11-16-2025 DIABETES SCREEN DIABETES SCREEN [facility] Start: 11-16-2025 Diabetes Screening Diabetes Screenin g [facility] Start: 07-12-2025 DIABETES SCREEN DIABETES SCREEN [facility] Start: 04-13-2025 DIABETES SCREEN DIABETES SCREEN [facility] Start: 03-16-2025 DIABETES SCREEN DIABETES SCREEN [facility] Start: 12-19-2024 DIABETES SCREEN DIABETES SCREEN [facility] Start: 11-04-2024 Anxiety Screening Anxiety Screening [facility] Start: 11-04-2024 Covid-19 Vaccine () Covid-19 Vaccine () [facility] Comment on above: Postponed from (Declined at this time) Start: 11-04-2024 Depression Screening Depression Scre ening [facility] Start: 08-04-2024 Patient referral [facility] Work Phone: Start: 05-07-2024 Hepatitis C screening Hepatitis C Sc nidia [facility] Comment on above: Postponed from 09/13 (Declined at this time) Start: 05-07-2024 Shingrix Vaccine (1 of 2) Harris grix Vaccine (1 of 2) [facility] Comment on above: Postponed from 09/13 (Declined at this time) Start: 05-05-2024 End: 05-05-2024 Patient encounter procedure 05/05/2024 9:20 AM EST Office Visit [facility] [address] [place] [address] Va Meyers APRN.WOUND/OSTOMY CLINICAL NURSE SPECIALIST [address] [place] [address] 6 month follow up [facility] Comment on above: 6 month follow up Start: 04-28-2024 End: 07-28-2024 CBC panel - Blood by Automated count COMPLETE BLOOD COUNT Lab Routine Annual physical exam Expected: 04/28/2024 (Approximate), Expires: 07/28/2024 [facility] Comment on above: Expected: 04/28/2024 (Approximate), Expires: 07/28/2024 Start: 04-28-2024 End: 07-28-2024 Comprehensive metabolic 2000 panel - Serum or Plasma COMPREHENSIVE METABOLIC PANEL Lab Routine Annual physical exam Expected: 04/28/2024 (Approximate), Expires: 07/28/2024 [facility] Comment on above: Expected: 04/28/2024 (Approximate), Expires: 07/28/2024 Start: 04-28-2024 End: 07-28-2024 Lipid 1996 panel - Serum or Plasma LIPID PANEL BASIC Lab Routine Annual physical exam Expected: 04/28/2024 (Approximate), Expires: 07/28/2024 [facility] Work Phone: Comment on above: Expected: 04/28/2024 (Approximate), Expires: 07/28/2024 Start: 02-08-2024 End: 02-08-2024 Patient encounter procedure 02/08/2024 8:40 AM EST Office Visit [facility] [address] [facility], [place] [id number] Va Meyers, CUT TO LENGTH OPERATOR.WOUND/OSTOMY CLINICAL NURSE SPECIALIST [address], [place] [id number] 3 month follow up [facility] Comment on above: 3 month follow up Start: 11-25-2023 Covid-19 Vaccine ( season) Covid-19 Vaccine ( season) [facility] Start: 11-25-2023 Covid-19 Vaccine ( season) Covid-19 Vaccine ( season) [facility] Start: 11-25-2023 Influenza vaccination Influenza Vacc ine (#1) [facility] Start: 11-05-2023 End: 11-05-2023 Patient encounter procedure 11/05/2023 9:00 AM EDT Office Visit [facility] [address] [facility], [place] [phone] Va Meyers CUT TO LENGTH OPERATOR.WOUND/OSTOMY CLINICAL NURSE SPECIALIST [address], [place] [phone] 6 month follow up [facility] Comment on above: 6 month follow up Start: 06-07-2023 Microbial culture, routine Wound Cul ture [facility] Start: 06-07-2023 [facility] Start: 05-24-2023 Covid-19 Vaccine () Covid-19 Vaccine () [facility] Start: 03-26-2023 Advance Directive Discussion Advance Directive Discussion [facility] Start: 03-26-2023 Behavioral Health Screening Behavioral Health Screening [facility] Start: 03-26-2023 Depression Assessment Depression Ass essment [facility] Start: 11-24-2022 Influenza vaccination INFLUENZA (#1) [facility] Start: 11-16-2022 End: 01-16-2023 Urinalysis complete panel - Urine URINALYSIS WITH MICROSCOPIC, REFLEX CULTURE Lab Routine Urinary tract infection without hematuria, site unspecified Expected: 11/16/2022, Expires: 01/16/2023 [facility] Work Phone: Comment on above: Expected: 11/16/2022 , Expires: 01/16/2023 Start: 11-02-2022 End: 01-02-2023 CBC W Auto Differential panel - Blood CBC + DIFF Lab Routine Diastolic dysfunction Expected: 11/02/2022, Expires: 01/02/2023 [facility] Work Phone: Comment on above: Expected: 11/02/2022 , Expires: 01/02/2023 Start: 11-02-2022 End: 01-02-2023 Comprehensive metabolic 2000 panel - Serum or Plasma COMP METABOLIC PANEL Lab Routine Lipid screening Diastolic dysfunction Expected: 11/02/2022, Expires: 01/02/2023 [facility] Work Phone: Comment on above: Expected: 11/02/2022 , Expires: 01/02/2023 Start: 11-02-2022 End: 01-02-2023 Lipid 1996 panel - Serum or Plasma LIPID PANEL BASIC Lab Routine Lipid screening Expected: 11/02/2022, Expires: 01/02/2023 [facility] Work Phone: Comment on above: Expected: 11/02/2022 , Expires: 01/02/2023 Start: 08-18-2022 Adult depression scr eening assessment DEPRESSION SCREENING [facility] Start: 07-13-2022 COVID-19 VACCINE (6 - Pfizer series) COVID-19 VACCINE (6 - Pfizer series) [facility] Start: 05-09-2022 End: 07-09-2022 JOSE BY IFA SCREEN [facility] Work Phone: Comment on above: Expected: 05/09/2022 , Expires: 07/09/2022 Start: 05-09-2022 End: 07-09-2022 SJOGREN ABS SSA/SSB [facility] Work Phone: Comment on above: Expected: 05/09/2022 , Expires: 07/09/2022 Start: 04-12-2022 End: 06-12-2022 CBC W Auto Differential panel - Blood CBC + DIFF Lab Routine Brisk deep tendon reflexes Expected: 04/12/2022, Expires: 06/12/2022 [facility] Work Phone: Comment on above: Expected: 04/12/2022 , Expires: 06/12/2022 Start: 04-12-2022 End: 06-12-2022 Comprehensive metabolic 2000 panel - Serum or Plasma COMP METABOLIC PANEL Lab Routine Brisk deep tendon reflexes Expected: 04/12/2022, Expires: 06/12/2022 [facility] Work Phone: Comment on above: Expected: 04/12/2022 , Expires: 06/12/2022 Start: 04-12-2022 End: 06-12-2022 Magnesium [Mass/volume] in Serum or Plasma MAGNESIUM BLD Lab Routine Spinal stenosis of lumbar region with neurogenic claudication Expected: 04/12/2022, Expires: 06/12/2022 [facility] Work Phone: Comment on above: Expected: 04/12/2022 , Expires: 06/12/2022 Start: 03-26-2022 ADVANCE DIRECTIVE DISCUSSION ADVANCE DIRECTIVE DISCUSSION [facility] Start: 01-07-2022 COVID-19 VACCINE (5 - Booster for Pfizer series) COVID-19 VACCINE (5 - Booster for Pfizer series) [facility] Start: 11-24-2021 Influenza vaccination INFLUENZA (#1) [facility] Start: 08-18-2021 End: 10-18-2021 Hepatitis C virus Ab [Presence] in Serum HEP C AB IA W/CONF SCRN Lab Routine Special screening examination for viral disease Expected: 08/18/2021, Expires: 10/18/2021 [facility] Work Phone: Comment on above: Expected: 08/18/2021 , Expires: 10/18/2021 Start: 06-01-2021 COVID-19 VACCINE (4 - Booster for Pfizer series) COVID-19 VACCINE (4 - Booster for Pfizer series) [facility] Start: 03-26-2021 ADVANCE DIRECTIVE DISCUSSION ADVANCE DIRECTIVE DISCUSSION [facility] Start: 2010 BONE DENSITY BONE DENSITY [facility] Start: 2010 PNEUMOVAX AGE 65 AND OVER WITH 5YR LOOKBACK (#1) PNEUMOVAX AGE 65 AND OVER WITH 5YR LOOKBACK (#1) [facility] Start: 09-14-1995 SHINGRIX VACCINE (1 of 2) HARRIS GRIX VACCINE (1 of 2) [facility] Start: 1990 COLOGUARD (FIT-DNA) COLOGUARD (FIT-D NA) [facility] Start: [address] COLONOGRAPHY [facility] Start: 1990 DIABETES SCREEN DIABETES SCREEN [facility] Start: 1990 FECAL OCCULT BLOOD FECAL OCCULT BLOO D [facility] Start: 1990 LIPID SCREEN LIPID SCREEN [facility] Start: 1990 SIGMOIDOSCOPY SIGMOIDOSCOPY [facility] Start: 1964 Urine microalbumin profile DTA P,TDAP,TD (1 - Tdap) [facility] Start: 09-14-1963 HEPATITIS C SCREENING HEPATITIS C [facility] Start: 09-14-1963 Hepatitis C screening Hepatitis C [facility] Start: [address] [facility] assessment DEPRESSION SCREENING [facility] Acute hepatitis 2000 panel - Serum [facility] [id number]. tumor marker [Units/volume] in Serum or Plasma [facility] Bacteria identified in Urine by Culture URINE CULTURE Microbiology Routine Urinary frequency 10/26/2022 5:09 PM EDT [facility] Work Phone: Bacteria identified in Urine by Culture URINE CULTURE Microbiology Routine Recurrent UTI UTI symptoms 11/08/2023 12:11 PM EDT [facility] Work Phone: C reactive protein [Mass/volume] in Serum or Plasma [facility] CBC W Auto Different ial panel - Blood [facility] Comprehensive metabo lic 2000 panel - Serum or Plasma [facility] CT Chest W contrast IV [facility] Cytoplasmic ANCA Screen [facility] End: 09-17-2022 Dxa bone density study 1/> sites axial skel DXA-AXIAL SKELETON Radiology Routine Screening for osteoporosis Asymptomatic menopause 1 Occurrences starting 08/18/2021 until 09/17/2022 [facility] Work Phone: Comment on above: 1 Occurrences starti ng 08/18/2021 until 09/17/2022 End: 04-12-2023 Echocardiography ECHO Cardiology Routine Dyspnea on exertion 1 Occurrences starting 04/12/2022 until 04/12/2023 [facility] Work Phone: Comment on above: 1 Occurrences starti ng 04/12/2022 until 04/12/2023 Ferritin [Mass/volum e] in Serum or Plasma [facility] Hemoglobin A1c/Hemoglobin.total in Blood [facility] Hepatitis B virus benavides rface Ab [Presence] in Serum [facility] Iron and Iron bindin g capacity panel - Serum or Plasma [facility] Lipid 1996 panel - S ling or Plasma [facility] Mitochondria Ab [Pre sence] in Serum [facility] End: 05-12-2023 Mri spinal canal lumbar w/o contrast material MRI LUMBAR SPINE WO IVCON Radiology Routine Spinal stenosis of lumbar region with neurogenic claudication 1 Occurrences starting 04/12/2022 until 05/12/2023 [facility] Work Phone: Comment on above: 1 Occurrences starti ng 04/12/2022 until 05/12/2023 Patient referral [facility] Work Phone: Prothrombin time [facility] Smooth muscle Ab [Presence] in Serum [facility] Thyroid stimulating hormone measurement [facility] Immunizations Immunization Date Immunization Notes Care Provider Naima camarillo 01-23-2023 Pfizer Covid-19 (Comirnaty) Dr. Mia Garsia MD Work Phone: [facility] 01-13-2023 Influenza High-Dose Quadrivalent Dr. Mia Garsia MD Work Phone: [facility] 01-13-2023 RSV Adult Recombinan t (Arexvy) Dr. Mia Garsia MD Work Phone: [facility] 01-13-2023 influenza virus vacc ine, unspecified formulation Va Meyers APRN.WOUND/OSTOMY CLINICAL NURSE SPECIALIST Work Phone: [facility] 03-14-2022 Covid Pfizer Bivalen t Booster Dr. Mia Garsia MD Work Phone: [facility] 12-19-2021 influenza, high-dose , quadrivalent vaccine (FLUZONE HIGH DOSE QUADRIVALENT) Tiana Banda MD Work Phone: [facility] Work Phone: 11-12-2021 Covid (Pfizer) Dr. Mia Garsia MD Work Phone: [facility] 08-18-2021 pneumococcal (PCV20) vaccine, 20 valent (PREVNAR 20) Tiana Banda MD Work Phone: [facility] 08-18-2021 pneumococcal Conjuga te, unspecified formulation Tiana Banda MD Work Phone: [facility] Work Phone: 08-17-2021 tetanus toxoid, redu ronald diphtheria toxoid, and acellular pertussis vaccine, adsorbed Tiana Banda MD Work Phone: [facility] Work Phone: 02-01-2021 COVID-19 vaccine, ag e 12+ yr (Acturis-FireLayers - PURPLE TOP) Cait John PT Work Phone: [facility] Work Phone: 12-28-2020 influenza, high dose seasonal, preservative-free Cait John PT Work Phone: [facility] Work Phone: 12-28-2020 influenza, high-dose , quadrivalent vaccine (FLUZONE HIGH DOSE QUADRIVALENT) Tiana Banda MD Work Phone: [facility] 05-31-2020 COVID-19 vaccine, ag e 12+ yr (PFIZER-BIONTECH - PURPLE TOP) Cait John PT Work Phone: [facility] Work Phone: 05-10-2020 COVID-19 vaccine, ag e 12+ yr (PFIZER-BIONTECH - PURPLE TOP) Cait John PT Work Phone: [facility] Work Phone: 01-17-2016 pneumococcal polysaccharide vaccine, 23 valent Tiana Banda MD Work Phone: [facility] 01-17-2008 hepatitis B vaccine, pediatric or pediatric/adolescent dosage Tiana Banda MD Work Phone: [facility] 05-14-2007 hepatitis A vaccine, pediatric/adolescent dosage, 2 dose schedule Tiana Banda MD Work Phone: [facility] Payers Date Payer Category Payer Self-pay [id number] 2020 Private Health Insurance [facility] AARP SUPPLEMENT [id number] 2020-Present [phone] [address] [place] [address] Indemnity [id number] 2020 Private Health Insurance [facility] AARP SUPPLEMENT [id number] 2020-Present [phone] [address] [place] [address] Indemnity [id number] 2020 Unknown [id number] 2010 Medicare MEDICARE MEDICAR E A AND B [id number] 2010-Present [phone] [place] [address] Medicare [id number] 2010 Medicare MEDICARE MEDICAR E A AND B [id number] 2010-Present [phone] [place] [address] Medicare [id number] 2010 Medicare [id number] Unknown [id number] .462 Unknown [id number] .462 Unknown [id number] 2.16840.1.697666.3.579.2 .462 Unknown [id number] 2.16840.1.824490.3.579.2 .462 Unknown [id number] 2.16840.1.145502.3.579.2 .462 Unknown [id number] 2.16.840.1.009097.3.579.2 .462 Unknown [id number] 2.16.840.1.608621.3.579.2 .462 Unknown [id number] 2.16.840.1.558795.3.579.2 .462 Unknown [id number] 2.16840.1.633201.3.579.2 .462 Unknown [id number] 2.16840.1.725039.3.579.2 .462 Unknown [id number] 2.16.840.1.060845.3.579.2 .462 Unknown [id number] 2.16.840.1.100101.3.579.2 .462 Unknown [id number] 2.16.840.1.400920.3.579.2 .462 Unknown [id number] 2.16.840.1.009971.3.579.2 .462 Unknown [id number] 2.16.840.1.604879.3.579.2 .462 Unknown [id number] 2.16.840.1.930490.3.579.2 .462 Unknown [id number] 2.16.840.1.496316.3.579.2 .462 Unknown [id number] 2.16.840.1.686242.3.579.2 .462 Unknown [id number] 2.16.840.1.062313.3.579.2 .462 Unknown [id number] 2.16.840.1.538660.3.579.2 .462 Unknown [id number] 2.16.840.1.587408.3.579.2 .462 Unknown [id number] 2.16.840.1.544420.3.579.2 .462 Unknown [id number] 2.16.840.1.991489.3.579.2 .462 Unknown [id number] 2.16.840.1.709478.3.579.2 .462 Unknown [id number] 2.16.840.1.983822.3.579.2 .462 Unknown [id number] .462 Social History Date Type Detail Facility Start: 03-29-2021 End: 12-10-2023 Tobacco smoking status NHIS Ex-smoker [facility] End: 03-29-1976 History of tobacco use Current smoker [facility] Start: 03-29-2021 End: 01-17-2022 Tobacco use and exposure Smokeless tobacco non-user [facility] Start: 05-18-2021 End: 05-25-2021 Alcohol intake Current drinker of alcohol (finding) [facility] Start: 02-15-2021 History SDOH Alcohol Frequency 4 [facility] Start: 02-15-2021 History SDOH Alcohol Std Drinks 1 [facility] Start: 02-15-2021 History SDOH Alcohol Comment couple of drinks a week [facility] Start: 02-15-2021 History SDOH Social Connections Phone 5 [facility] Start: 02-15-2021 History SDOH Social Connections Religious 2 [facility] Start: 02-15-2021 History SDOH Social Connections Meetings 3 [facility] Start: 1945 Sex Assigned At Not on file [facility] Start: 04-18-2021 End: 01-17-2022 Exposure to SARS-CoV-2 (event) Not sure [facility] End: 03-29-1976 History of tobacco use Cigarette Smoker [facility] Work Phone: Start: 06-19-2022 End: 03-06-2023 Tobacco smoking status DEIS Unknown if ever smoked [facility] Start: 1945 Sex Assigned At Female [facility] Start: 02-14-2021 End: 05-18-2021 History of Social function [facility] Start: 02-14-2021 End: 05-18-2021 Social connection and isolation panel [facility] Do you belong to any clubs or organizations such as hoahaoism groups, unions, fraternal or athletic groups, or school groups? Yes [facility] Are you now , , , , never or living with a partner? [facility] How often to you hav e a drink containing alcohol? 2-3 time sa week [facility] How many standard dr inks containing alcohol do you have on a typical day? 1 or 2 [facility] How often do you hav e 6 or more drinks on 1 occasion? Never [facility] How hard is it for y ou to pay for the very basics like food, housing, medical care, and heating Not hard at all [facility] Do you feel stress - tense, restless, nervous, or anxious, or unable to sleep at night because your mind is troubled all the time - these days [OSQ] Only a little [facility] (I/We) worried wheth er (my/our) food would run out before (I/we) got money to buy more. Never true [facility] In the past 12 month s, was there a time when you were not able to pay the mortgage or rent on time? No [facility] Start: 06-12-2022 Sexual orientation Homosexual (finding) [facility] Start: 06-12-2022 Sexual orientation Heterosexual (finding) [facility] Start: 06-12-2022 Sexual orientation Bisexual (finding) [facility] How often to you hav e a drink containing alcohol? 2-4 times a month [facility] Do you feel stress - tense, restless, nervous, or anxious, or unable to sleep at night because your mind is troubled all the time - these days [OSQ] Not at all [facility] Start: 07-03-2024 Sex Female (finding) [facility] Clinical Notes 06-22-2021 to 07-23-2024 Note Date & Type Note Facility 07-23-2024 Radiology Diagnostic study note [facility] Imaging Services [address] [place] [address] ABD Limited w/ Elastography MR#: [id number] Acct: [id number] Name: DEVI FRIEDMAN Rep #: [id number] : 1945 F 78 From: Denise Beaver MD PCP: Dr. Mia Garsia MD Status: R EG CLI Study:ABD Limited w/ Elastography Date of Exa m: 07/23/24 Exam# [id number] Ordering Dr: Gavin Mccain MD PROCEDURE: ABD LIMITED W/ ELASTOGRAPHY, 07/23/2024 REASON FOR EXAM: FATTY LIVER COMPARISON: 06/30/2024 TECHNIQUE: Grayscale and color Doppler imaging of the right upper quadrant was performed. Elastography was performed for non-invasive assessment of liver tissue stiffness utilizing a RADLIVE S-shear wave imaging unit. FINDINGS: Liver: Echogenic. 18.1 cm in length. A small focal hypoechoic area along the gallbladder fossa measures 1.7 x 1.3 x 1.2 cm, location suggestive of focal fatty sparing. Additional tiny hypodensities seen on CT are not visualized. Gallbladder: Unremarkable. Reportedly, sonographic Garcia's was negative. Biliary tree: Unremarkable. CBD measures 3 mm. Pancreas: Partially obscured by shadowing bowel gas, grossly unremarkable as visualized. Right kidney: 1.0 x 1.1 x 0.6 cm cyst. 11.0 cm in length. Other: No visualized free fluid. Hepatic elastography: Number of measurements: 15 measurements across 3 regions, 5 measurements per region. US probe: CA1-7A. EQI median: 5.7 kPa EQI median velocity: 1.37 m/s IQR/Med: 20.5-27.3% (kPa) and 10.6-13.7% (m/s). If the IQR/Med is IQR/median >30% (for kPa) or >15% in m/s, the variance in the measurements is a large and the accuracy of the measurement may be in question. US/ABD Limited w/ Elastography IMPRESSION: 1. Appearance of the hepatic parenchyma most frequently associated with hepatic steatosis. Correlate for clinical and laboratory evidence of chronic liver disease. 2. Liver stiffness is 5.7 kPa. Per the below 2020 SRU criteria, this rules out compensated advanced chronic liver disease in the absence of other known clinical signs. If there are known clinical signs, further testing may be needed for confirmation. 3. Additional description as above. Assessment is per the Update to the SRU Liver Elastography Consensus Statement (2020) Note that the above assessment of liver fibrosis is vendor-neutral and intended for use in fibrosis related to viral etiologies and non-alcoholic fatty-liver disease (NAFLD); in causes other than viral hepatitis and NAFLD, the cutoff values are currently not well established. In some patients with NAFLD, the cutoff values for cACLD may be lower (7-9 kPa). Note also that in the setting of elevated LFTs, nonfasting or vascular congestion, the stage of lifer fibrosis may be overestimated. Previous SRU reference values: <1.37 m/s (5.7kPa): No to mild fibrosis 1.37 m/s - 2.2 m/s: Moderate to severe fibrosis >2.2 m/s (15kPa): Significant fibrosis / cirrhosis Reading Location: [facility] CC: Dr. Mia Garsia MD; Dr. Hugh Mccain MD ~ Retail Interior Designer: Signed [facility] 06-30-2024 Radiology Diagnostic study note [facility] Imaging Services [address] [place] [address] CT Chest, Abd, Pel w/Contrast MR#: [id number] Acct: [id number] Name: DEVI FRIEDMAN Rep #: [id number] : 1945 F 78 From: Denise Beaver MD PCP: Dr. Mia Garsia MD Status: R EG CLI Study:CT Chest, Abd, Pel w/Contrast Date of E xam: 06/30/24 Exam# [id number] Ordering Dr: Gavin Mccain MD PROCEDURE: CT CHEST, ABD, PEL W/CONTRAST 06/30/2024 REASON FOR EXAM: LUNG NODULE/HX OF BREAST CA-IV ONLY TECHNIQUE: CT chest abdomen and pelvis was performed with IV contrast. Multiplanar reformats were generated. One or more dose reduction techniques were used (e.g., Automated exposure control, adjustment of the mA and/or kV according to patient size, use of iterative reconstruction technique. PATIENT PREPARATION: Per protocol ORAL CONTRAST TYPE: None. CONTRAST: Isovue-300 VOLUME: 98 mL RADIATION DOSE SUMMARY: CTDlvol: 7.6+ 15.2+ 7.25+ 19.31 mGy DLP: 1223.61 mGycm COMPARISON: CT abdomen and pelvis 03/07/2024. No prior imaging of the chest is available. FINDINGS: Heart/pericardium: Trace aortic annular calcification.. Aorta: Mild/moderate atherosclerosis. Ductus diverticulum. Pulmonary arteries: Unremarkable. Lymph nodes: Asymmetrically prominent LEFT axillary nodes up to 7 mm short axis,some of which appear slightly rounded. Lungs/pleura: Mild atelectasis/scarring. 3 mm subpleural LEFT upper lobe nodule(series 6, image 67). Subpleural 3 mm LEFT lower lobe nodules (image 85, 98, and 106). 2 mm subpleural RIGHT lower lobe micronodule (image 87). Posterior subpleural RIGHT lower lobe nodule versus nodular appearance of dependent atelectasis up to 5 x 6mm (image 58 and 72). Similar finding in the LEFT lower lobe on image 100. Accessory fissure in the RIGHT lower lobe, normalvariant. Airways: Unremarkable. Chest wall: Bilateral mastectomy. Liver: Similar hepatic hypodensities up to 7 mm in the inferior RIGHT lobe, too small to characterize. Spleen: Unremarkable. Gallbladder: Unremarkable. Pancreas: Atrophic. Adrenals: Unremarkable. Kidneys: Similar tiny hypodensities bilaterally, too small to characterize, likely cysts. Bowel: Diverticulosis.. Normal caliber appendix. Lymph nodes: Unremarkable. Vasculature: Mild atherosclerosis.. Peritoneum: Unremarkable. Bladder: Somewhat distended and otherwise unremarkable. Reproductive Organs: Unremarkable. Body Wall: Unremarkable. Musculoskeletal: Demineralization. Multilevel spondylosis. Mild thoracic dextroscoliosis may be positional. Degenerative changes of the PUQO-erkthim-jtcr-RIGHT shoulder. Similar grade 1-2 degenerativeanterolisthesis at L4-L5. Advanced degenerative changes of the LEFT hip, increased from 03/07/2024. Ankylosis of the anterior SI joints. CT/CT Chest, Abd, Pel w/Contrast IMPRESSION: 1. Bilateral mastectomy with asymmetrically prominent but technically nonenlarged enlarged LEFT axillary nodes, some of which may demonstrate a mildly abnormal rounded morphology. These are nonspecific by CT but given the context, clinical follow-up is warranted. These would optimally be evaluated sonographically at a dedicated breast imaging center. 2. Tiny hepatic hypodensities too small to characterize but similar to prior, possible cysts/hemangiomas however this is not definite. 3. Small sub 6 mm average axial diameter nonspecific pulmonary nodules as detailed. 4. Additional description as above. Note that comparison against any available outside imaging would be helpful to establish the stability of the indeterminate findings in #1-3 above. If unavailable, recommend close clinical/oncologic follow-up given the context. Reading Location: [id number] CC: Dr. Mia Garsia MD; Dr. Hugh Mccain MD ~ Retail Interior Designer: Signed [facility] 06-18-2024 Evaluation note Diagnosis Onset Date Resolution Tongue lesion acute June 18, 2024 1:38pm Gastritis chronic June 18 1:38pm Osteopenia with high risk of fracture chronic June 18, 2024 1:38pm Spinal stenosis of lumbar region with neurogenic claudication chronic June 18, 2024 1:38pm Fatty liver chronic July 14, 2 025 2:01pm History of breast cancer in female chronic July 14, 2024 2:01pm Lung nodule chronic July 14, 2 025 2:01pm Acquired spondylolisthesis of lumbosacral region chronic August 04, 2024 10:03am Fatty liver chronic August 04 10:03am History of breast cancer in female chronic August 04, 2024 10:03am Lung nodule chronic August 04 10:03am Gastritis chronic August 21, 2024 10:03am Metabolic dysfunction-associated steatohepatitis (MASH) chronic August 21, 2024 10:03am Osteopenia with high risk of fracture chronic August 21, 2024 10:03am [facility] Work Phone: 1(352) 510-950802-11-2025 Evaluation note* Diagnosis Onset Date Resolution Status Admit Date SVT (supraventricular tachycardia) acute May 06, 2 025 12:53pm Hypertension chronic April 12:53pm Tongue lesion acute June 18, 2024 1:38pm Gastritis chronic June 18 1:38pm Osteopenia with high risk of fracture chronic June 18, 2024 1:38pm Spinal stenosis of lumbar region with neurogenic claudication chronic June 18, 2024 1:38pm Fatty liver acute July 14, 2 025 2:01pm Lung nodule acute July 14, 2 025 2:01pm History of breast cancer in female chronic July 14, 2024 2:01pm [facility] Work Phone: 1(448) 466-883602-11-2025 Evaluation note* Diagnosis Onset Date Resolution Status Admit Date SVT (supraventricular tachycardia) acute May 06, 2 025 12:53pm Hypertension chronic April 12:53pm Tongue lesion acute June 18, 2024 1:38pm Gastritis chronic June 18 1:38pm Osteopenia with high risk of fracture chronic June 18, 2024 1:38pm Spinal stenosis of lumbar re gion with neurogenic claudication chronic May 1:38pm Fatty liver chronic July 14, 2 025 2:01pm History of breast cancer in female chronic July 14, 2024 2:01pm Lung nodule chronic July 14, 2 025 2:01pm Acquired spondylolisthesis o f lumbosacral region chronic August 04 10:03am Fatty liver chronic August 04 10:03am History of breast cancer in female chronic August 04, 2024 1 0:03am Lung nodule chronic August 04 10:03am Metabolic dysfunction-associ ated steatohepatitis (MASH) chronic August 21, 2024 10:03am [facility] Work Phone: [phone] Evaluation note* Diagnosis Onset Date Resolution Status Admit Date SVT (supraventricular tachycardia) acute May 06, 2 025 12:53pm Hypertension chronic April 12:53pm Tongue lesion acute June 18, 2024 1:38pm Gastritis chronic June 18 1:38pm Osteopenia with high risk of fracture chronic June 18, 2024 1:38pm Spinal stenosis of lumbar re gion with neurogenic claudication chronic May 1:38pm Fatty liver chronic July 14, 2 025 2:01pm History of breast cancer in female chronic July 14, 2024 2:01pm Lung nodule chronic July 14, 2 025 2:01pm Acquired spondylolisthesis o f lumbosacral region chronic August 04 10:03am Fatty liver chronic August 04 10:03am History of breast cancer in female chronic August 04, 2024 1 0:03am Lung nodule chronic August 04 10:03am Gastritis chronic August 21, 2024 10:03am Metabolic dysfunction-associ ated steatohepatitis (MASH) chronic August 21, 2024 10:03am Osteopenia with high risk of fracture chronic August 21, 2024 1 0:03am [facility] Work Phone: 1(249) 516-169512-17-2024 Evaluation note* Diagnosis Onset Date Resolution Status Admit Date Lung nodule acute February 2:57pm Dyspepsia chronic March 11, 2024 2:57pm History of breast cancer in female chronic March 11, 2 024 2:57pm RUQ pain chronic March 11, 2024 2:57pm Gastritis chronic March 17, 2024 10:30am Osteopenia with high risk of fracture chronic March 17 024 10:30am Spinal stenosis of lumbar region with neurogenic claudication chronic March 17 024 10:30am SVT (supraventricular tachycardia) acute May 06, 025 12:53pm Hypertension chronic April 12:53pm Tongue lesion acute June 18, 2024 1:38pm Gastritis chronic June 18 1:38pm Osteopenia with high risk of fracture chronic June 18, 2024 1:38pm Spinal stenosis of lumbar region with neurogenic claudication chronic June 18, 2024 1:38pm [facility] Work Phone: 1(909) 763-136408-19-2024 Instructions* Patient Instructions* Kamla Kellogg APRN.YANIRA - 11/12/2023 11:03 AM EDT STOP CEPHALEXIN (KEFLEX) LET ME KNOW IN 2-3 DAYS IF YOUR SYMPTOMS ARE NOT IMPROVING documented [facility] NoteHNO ID: [id number] Author: KAMLA KELLOGG APRN.WOUND/OSTOMY CLINICAL NURSE SPECIALIST Service: ? Author Type: Nurse Practitioner Type: Progress Notes Filed: 11/12/2023 12:45 Note Text: CC: Patient presents with: deepthi being treated for UTI - keflex causing insomnia, a HPI Devi Friedman is a 78 year old female who presents today for recurrent UTI. 09/08 Presented to [facility] with dysuria and urinary frequency. Urine dip positive for trace blood and leuks. She was treated with 7 day course of Macrobid. Symptoms resolved. 11/04 Reported vaginal itching at routine follow-up, treated with Diflucan for possible yeast infection 11/07 Patient seen for two day history of urinary frequency, urgency, burning and chills. Urine dip indicated infection and she was started on Bactrim DS. 11/08 Patient called PCP to report generalized itching without rash after three doses of Bactrim. This was discontinued and she was prescribed Keflex 500 mg four times a day Today patient reports she has taken a total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 Visits Authorized [id number] Authorized Auto-Generat ed Referral 04/12/2022 05/12/2023 1 1 Specialty Diagnoses / Procedures Referred By Contac t Referred To Contact [facility] Diagnoses Dyspnea on exertion Procedures ECHO ECHO TTHRC R-T 2D W/WOM-MODE COMPL SPEC&COLR D Tiana Banda MD [address] [place] [id number] [facility] [address] [place] [address] Referral ID Status Reason Start Date Expiration Date Visits Requested Visits Authorized [id number] Authorized Auto-Generat ed Referral 04/12/2022 04/12/2023 1 1 Specialty Diagnoses / Procedures Referred By Contac t Referred To Contact Diagnoses Bilateral malignant neoplasm of breast in female, unspecified estrogen receptor status, unspecified site of breast (HCC) Procedures CONSULT TO HEMATOLOGY/ONCOLOGY OFFICE/OUTPATIENT [facility] 60-74 MINUTES Tiana Banda MD [address] [place] [address] Referral ID Status Reason Start Date Expiration Date Visits Requested Visits Authorized [id number] Authorized PCP Requested Referral 05/09/2022 05/09/2023 1 1 Specialty Diagnoses / Procedures Referred By Contac t Referred To Contact [facility] Diagnoses Spinal stenosis of lumbar region with neurogenic claudication Foraminal stenosis of lumbar region Procedures CONSULT TO PHYSICAL THERAPY PHYSICAL THERAPY EVALUATION HIGH COMPLEX 45 MINS Tiana Banda MD [address] [place] [address] [facility] [address] [place] [address] Referral ID Status Reason Start Date Expiration Date Visits Requested Visits Authorized [id number] Authorized PCP Requested Referral Auto-Generate d Referral 05/09/2022 05/09/2023 99 99 Specialty Diagnoses / Procedures Referred By Contac t Referred To Contact Pain Management Diagnoses Spinal stenosis of lumbar region with neurogenic claudication Foraminal stenosis of lumbar region Procedures CONSULT TO PAIN MGT OFFICE/OUTPATIENT [facility] 60-74 MINUTES Tiana Banda MD [address] [place] [address] Referral ID Status Reason Start Date Expiration Date Visits Requested Visits Authorized [id number] Authorized PCP Requested Referral 05/09/2022 08/07/2022 1 1 Specialty Diagnoses / Procedures Referred By Contac t Referred To Contact Urology Diagnoses Recurrent UTI Procedures CONSULT TO UROLOGY OFFICE/[facility] 60 MINUTES Tiana Banda MD [address] [place] [address] Referral ID Status Reason Start Date Expiration Date Visits Requested Visits Authorized [id number] Authorized PCP Requested Referral 11/08/2023 11/07/2024 1 1 Specialty Diagnoses / Procedures Referred By Contac t Referred To Contact Urology Diagnoses Dysuria Recurrent UTI Procedures CONSULT TO UROLOGY OFFICE/OUTPATIENT [facility] 60 MINUTES Kamla Kellogg, CUT TO LENGTH OPERATOR.WOUND/OSTOMY CLINICAL NURSE SPECIALIST [address] [place] [address] Referral ID Status Reason Start Date Expiration Date Visits Requested Visits Authorized [id number] Authorized PCP Requested Referral 11/12/2023 11/11/2024 1 1 Chief Complaint and Reason for Visit Chief Complaint 14 DAY MONITOR NEW-BREAST CA/TRANSFER CARE MED ONC BILATERAL BREAST CANCER BILATERAL BREAST CANCER Reason for Visit Breast cancer in [facility] [place] Leukocytosis Chief Complaint 14 DAY MONITOR NEW-BREAST CA/TRANSFER CARE BILATERAL BREAST CANCER BILATERAL BREAST CANCER 2WKS LABS PRIOR REVIEW CT/BONE SCAN MED ONC Reason for Visit Breast cancer in fem [place] Leukocytosis Breast cancer in female Leukocytosis Chief Complaint 1 Y FU PREV PFM PT Supraventricular tachycardia, unspecified Supraventricular tachycardia, unspecified Reason for Visit Breast cancer in fem [place] Chest pain Essential hypertension SVT (supraventricular tachycardia) Trifascicular block Chief Complaint Supraventricular tac hycardia, unspecified Supraventricular tachycardia, unspecified MONITOR LUNG NODULE, HX BILAT BREAST CA *IV ONLY* MED ONC 1YR LABS REVIEW CT Reason for Visit Breast cancer in [facility] [place] Chief Complaint Admit Date Right upper quadrant pain March 07, 2024 12:46pm REVIEW SCANS March 11, 2024 2:57pm 3 M FU March 17, 2024 10:30am 1 Y FU May 06, 2024 12:53pm 3 M FU June 18, 2024 1:3 8pm H/O BREAST CANCER , LUNG NODULE June 7:57am MED ONC June 30, 2024 8:26 am Reason for Visit Admit Date Lung nodule March 11, 2024 2:57pm Dyspepsia March 11, 2024 2:57pm History of breast cancer in female Decem 2023 2:57pm RUQ pain March 11, 2024 2:57pm Gastritis March 17, 2024 10:30am Osteopenia with high risk of fracture De cember 2023 10:30am Spinal stenosis of lumbar re gion with neurogenic claudication March 17, 2024 10:30am SVT (supraventricular tachycardia) Febru yoly 2024 12:53pm Hypertension May 06, 2024 12:53pm Tongue lesion June 18, 2024 1:3 8pm Gastritis June 18, 2024 1:3 8pm Osteopenia with high risk of fracture [facility] 2024 1:38pm Spinal stenosis of lumbar re gion with neurogenic claudication June 18, 2024 1:38pm Chief Complaint Admit Date 1 Y FU May 06, 2024 12:53pm 3 M FU June 18, 2024 1:3 8pm H/O BREAST CANCER , LUNG NODULE June 7:57am 1YR LABS PRIOR REVIEW CT July 14 2:01pm MED ONC July 14, 2024 3:1 5pm Fatty (change of) liver, not elsewhere c lassified July 23, 2024 10:01am Reason for Visit Admit Date SVT (supraventricular tachycardia) Febru [email or web address] 12:53pm Hypertension May 06, 2024 12:53pm Tongue lesion June 18, 2024 1:3 8pm Gastritis June 18, 2024 1:3 8pm Osteopenia with high risk of fracture [facility] 2024 1:38pm Spinal stenosis of lumbar re gion with neurogenic claudication June 18, 2024 1:38pm Fatty liver July 14, 2024 2:0 1pm Lung nodule July 14, 2024 2:0 1pm History of breast cancer in female July 14, 2024 2:01pm Chief Complaint Admit Date 1 Y FU May 06, 2024 12:53pm 3 M FU June 18, 2024 1:3 8pm H/O BREAST CANCER , LUNG NODULE June 7:57am 1YR LABS PRIOR REVIEW CT July 14 2:01pm MED ONC July 14, 2024 3:1 5pm Fatty (change of) liver, not elsewhere c lassified July 23, 2024 10:01am 2WKS NO LABS REVIEW ELASTOGRAPHY July 10:03am URINE SPEC. August 19, 2024 12:53 pm Fatty Liver August 21, 2024 10:03 am Reason for Visit Admit Date SVT (supraventricular tachycardia) Febru [email or web address] 12:53pm Hypertension May 06, 2024 12:53pm Tongue lesion June 18, 2024 1:3 8pm Gastritis June 18, 2024 1:3 8pm Osteopenia with high risk of fracture [facility] 2024 1:38pm Spinal stenosis of lumbar re gion with neurogenic claudication June 18, 2024 1:38pm Fatty liver July 14, 2024 2:0 1pm History of breast cancer in female July 14, 2024 2:01pm Lung nodule July 14, 2024 2:0 1pm Acquired spondylolisthesis of lumbosacra l region August 04, 2024 10:03am Fatty liver August 04, 2024 10:03 am History of breast cancer in female July 242024 10:03am Lung nodule August 04, 2024 10:03 am Metabolic dysfunction-associated steatoh epatitis (MASH) August 21, 2024 10:03am Reason for Visit Admit Date SVT (supraventricular tachycardia) Febru yoly 2024 12:53pm Hypertension May 06, 2024 12:53pm Tongue lesion June 18, 2024 1:3 8pm Gastritis June 18, 2024 1:3 8pm Osteopenia with high risk of fracture [facility] 2024 1:38pm Spinal stenosis of lumbar re gion with neurogenic claudication June 18, 2024 1:38pm Fatty liver July 14, 2024 2:0 1pm History of breast cancer in female July 14, 2024 2:01pm Lung nodule July 14, 2024 2:0 1pm Acquired spondylolisthesis of lumbosacra l region August 04, 2024 10:03am Fatty liver August 04, 2024 10:03 am History of breast cancer in female July 242024 10:03am Lung nodule August 04, 2024 10:03 am Gastritis August 21, 2024 10:03 am Metabolic dysfunction-associated steatoh epatitis (MASH) August 21, 2024 10:03am Osteopenia with high risk of fracture Ma y 2024 10:03am Chief Complaint Admit Date 3 M FU June 18, 2024 1:3 8pm H/O BREAST CANCER , LUNG NODULE June 7:57am 1YR LABS PRIOR REVIEW CT July 14 2:01pm MED ONC July 14, 2024 3:1 5pm Fatty (change of) liver, not elsewhere c lassified July 23, 2024 10:01am 2WKS NO LABS REVIEW ELASTOGRAPHY July 10:03am URINE SPEC. August 19, 2024 12:53 pm Fatty Liver August 21, 2024 10:03 am 3 M FU September 25, 2024 4:30p m Reason for Visit Admit Date Tongue lesion June 18, 2024 1:3 8pm Gastritis June 18, 2024 1:3 8pm Osteopenia with high risk of fracture Ma rch 2024 1:38pm Spinal stenosis of lumbar region with ne urogenic claudication June 18, 2024 1:38pm Fatty liver July 14, 2024 2:0 1pm History of breast cancer in female July 14, 2024 2:01pm Lung nodule July 14, 2024 2:0 1pm Acquired spondylolisthesis of lumbosacra l region August 04, 2024 10:03am Fatty liver August 04, 2024 10:03 am History of breast cancer in female July 242024 10:03am Lung nodule August 04, 2024 10:03 am Gastritis August 21, 2024 10:03 am Metabolic dysfunction-associated steatoh epatitis (MASH) August 21, 2024 10:03am Osteopenia with high risk of fracture Ma y 2024 10:03am Family History No Family History Records Found Relationship Condition Age at Onset Recorded Date/T leigh ann grandfather Coronary artery disease Unknown father Coronary artery disease Unknown Hypertension Unknown Mixed hyperlipidemia Unknown Relationship Condition Age at Onset Recorded Date/T leigh ann grandfather Coronary artery disease Unknown father Coronary artery disease Unknown Hypertension Unknown Mixed hyperlipidemia Unknown Low back pain potent ially associated with spinal stenosis Unknown mother Malignant neoplasm 60 Summary Purpose Additional Source Comments Source Comments (unrecognize d section and content) In the event this informatio n is protected by the Federal Confidentiality of Alcohol and Drug Abuse Patient Records regulations: The Federal rules restrict any use of the information to criminally investigate or prosecute any alcohol or drug abuse patient.[facility] the event this information is protected by the Federal Confidentiality of Alcohol and Drug Abuse Patient Records regulations: The Federal rules restrict any use of the information to criminally investigate or prosecute any alcohol or drug abuse patient.[facility]In the event this information is protected by the Federal Confidentiality of Alcohol and Drug Abuse Patient Records regulations: The Federal rules restrict any use of the information to criminally investigate or prosecute any alcohol or drug abuse patient.[facility]In the event this information is protected by the Federal Confidentiality of Alcohol and Drug Abuse Patient Records regulations: The Federal rules restrict any use of the information to criminally investigate or prosecute any alcohol or drug abuse patient.[facility]In the event this information is protected by the Federal Confidentiality of Alcohol and Drug Abuse Patient Records regulations: The Federal rules restrict any use of the information to criminally investigate or prosecute any alcohol or drug abuse patient.[facility] the event this information is protected by the Federal Confidentiality of Alcohol and Drug Abuse Patient Records regulations: The Federal rules restrict any use of the information to criminally investigate or prosecute any alcohol or drug abuse patient.[facility]In the event this information is protected by the Federal Confidentiality of Alcohol and Drug Abuse Patient Records regulations: The Federal rules restrict any use of the information to criminally investigate or prosecute any alcohol or drug abuse patient.[facility]In the event this information is protected by the Federal Confidentiality of Alcohol and Drug Abuse Patient Records regulations: The Federal rules restrict any use of the information to criminally investigate or prosecute any alcohol or drug abuse patient.[facility]In the event this information is protected by the Federal Confidentiality of Alcohol and Drug Abuse Patient Records regulations: The Federal rules restrict any use of the information to criminally investigate or prosecute any alcohol or drug abuse patient.[facility]In the event this information is protected by the Federal Confidentiality of Alcohol and Drug Abuse Patient Records regulations: The Federal rules restrict any use of the information to criminally investigate or prosecute any alcohol or drug abuse patient.[facility]In the event this information is protected by the Federal Confidentiality of Alcohol and Drug Abuse Patient Records regulations: The Federal rules restrict any use of the information to criminally investigate or prosecute any alcohol or drug abuse patient.[facility]In the event this information is protected by the Federal Confidentiality of Alcohol and Drug Abuse Patient Records regulations: The Federal rules restrict any use of the information to criminally investigate or prosecute any alcohol or drug abuse patient.[facility]In the event this information is protected by the Federal Confidentiality of Alcohol and Drug Abuse Patient Records regulations: The Federal rules restrict any use of the information to criminally investigate or prosecute any alcohol or drug abuse patient.[facility]In the event this information is protected by the Federal Confidentiality of Alcohol and Drug Abuse Patient Records regulations: The Federal rules restrict any use of the information to criminally investigate or prosecute any alcohol or drug abuse patient.[facility]In the event this information is protected by the Federal Confidentiality of Alcohol and Drug Abuse Patient Records regulations: The Federal rules restrict any use of the information to criminally investigate or prosecute any alcohol or drug abuse patient.[facility]In the event this information is protected by the Federal Confidentiality of Alcohol and Drug Abuse Patient Records regulations: The Federal rules restrict any use of the information to criminally investigate or prosecute any alcohol or drug abuse patient.[facility]In the event this information is protected by the Federal Confidentiality of Alcohol and Drug Abuse Patient Records regulations: The Federal rules restrict any use of the information to criminally investigate or prosecute any alcohol or drug abuse patient.[facility]In the event this information is protected by the Federal Confidentiality of Alcohol and Drug Abuse Patient Records regulations: The Federal rules restrict any use of the information to criminally investigate or prosecute any alcohol or drug abuse patient.[facility]In the event this information is protected by the Federal Confidentiality of Alcohol and Drug Abuse Patient Records regulations: The Federal rules restrict any use of the information to criminally investigate or prosecute any alcohol or drug abuse patient.[facility]In the event this information is protected by the Federal Confidentiality of Alcohol and Drug Abuse Patient Records regulations: The Federal rules restrict any use of the information to criminally investigate or prosecute any alcohol or drug abuse patient.[facility]In the event this information is protected by the Federal Confidentiality of Alcohol and Drug Abuse Patient Records regulations: The Federal rules restrict any use of the information to criminally investigate or prosecute any alcohol or drug abuse patient.[facility]In the event this information is protected by the Federal Confidentiality of Alcohol and Drug Abuse Patient Records regulations: The Federal rules restrict any use of the information to criminally investigate or prosecute any alcohol or drug abuse patient.[facility]In the event this information is protected by the Federal Confidentiality of Alcohol and Drug Abuse Patient Records regulations: The Federal rules restrict any use of the information to criminally investigate or prosecute any alcohol or drug abuse patient.[facility]In the event this information is protected by the Federal Confidentiality of Alcohol and Drug Abuse Patient Records regulations: The Federal rules restrict any use of the information to criminally investigate or prosecute any alcohol or drug abuse patient.[facility]In the event this information is protected by the Federal Confidentiality of Alcohol and Drug Abuse Patient Records regulations: The Federal rules restrict any use of the information to criminally investigate or prosecute any alcohol or drug abuse patient.[facility]In the event this information is protected by the Federal Confidentiality of Alcohol and Drug Abuse Patient Records regulations: The Federal rules restrict any use of the information to criminally investigate or prosecute any alcohol or drug abuse patient.[facility]In the event this information is protected by the Federal Confidentiality of Alcohol and Drug Abuse Patient Records regulations: The Federal rules restrict any use of the information to criminally investigate or prosecute any alcohol or drug abuse patient.[facility]In the event this information is protected by the Federal Confidentiality of Alcohol and Drug Abuse Patient Records regulations: The Federal rules restrict any use of the information to criminally investigate or prosecute any alcohol or drug abuse patient.[facility]In the event this information is protected by the Federal Confidentiality of Alcohol and Drug Abuse Patient Records regulations: The Federal rules restrict any use of the information to criminally investigate or prosecute any alcohol or drug abuse patient.[facility]In the event this information is protected by the Federal Confidentiality of Alcohol and Drug Abuse Patient Records regulations: The Federal rules restrict any use of the information to criminally investigate or prosecute any alcohol or drug abuse patient.[facility]In the event this information is protected by the Federal Confidentiality of Alcohol and Drug Abuse Patient Records regulations: The Federal rules restrict any use of the information to criminally investigate or prosecute any alcohol or drug abuse patient.[facility]In the event this information is protected by the Federal Confidentiality of Alcohol and Drug Abuse Patient Records regulations: The Federal rules restrict any use of the information to criminally investigate or prosecute any alcohol or drug abuse patient.[facility]In the event this information is protected by the Federal Confidentiality of Alcohol and Drug Abuse Patient Records regulations: The Federal rules restrict any use of the information to criminally investigate or prosecute any alcohol or drug abuse patient.[facility] Reason for Visit (unrecogniz ed section and content) Reason Comments PT Discharge Specialty Diagnoses / Procedures Referred By Hardeep t Referred To Contact [facility] Diagnoses Piriformis syndrome, unspecified laterality Procedures CONSULT TO PHYSICAL THERAPY PHYSICAL THERAPY EVALUATION HIGH COMPLEX 45 MINS Tiana Banda MD [address] [place] [address] [facility] [address] [place] [address] Referral ID Status Reason Start Date Expiration Date Visits Requested Visits Authorized [id number] Authorized PCP Requested Referral Auto-Generate d Referral [...] Reason Onset Date Comments Refill Request 11/21/2022 Reason Onset Date Comments Refill Request 04/27/2023 Reason Comments Recheck 6 month follow up Reason Comments Refill Request Reason Comments Recheck 6 month follow up Reason Comments Future Appointment Reason Comments UTI Pain, urgency, chill s, up every 45 minutes last night to urinate Reason Comments Medication Problem ? reaction to bactrim rx Reason Comments currenly being treated for UTI - keflex causing insomnia, a Care Teams (unrecognized sec tion and content) Team Status: Active Member Role Status Dates Dr. Tiana Banda MD Primary Care Provider Active Team Status: Active Member Role Status Dates Dr. Tiana Banda MD Primary Care Provider Active Dr. Norbert Tabor MD Attending Provider, Referring Pr ovider Active Team Status: Active Member Role Status Dates Dr. Tiana Banda MD Primary Care Provider Active Yue WAYNE, [place] Referring Provider, Other Provider Active Dr. Norbert Tabor MD Attending Provider Active Team Status: Inactive Member Role Status Dates Dr. Tiana Banda MD Primary Care Provider, Referring Provider Active Dr. Hugh Mccain MD Attending Provider Active Team Status: Active Member Role Status Dates Dr. Tiana Banda MD Primary Care Provider Active Dr. Hugh Mccain MD Attending Provider, Referring Pro vider Active Team Status: Inactive Member Role Status Dates Dr. Tiana Banda MD Primary Care Provider Active Yue Lloyd [place], [place] Attending Provider, Referr ing Provider Active Team Status: Inactive Member Role Status Dates Dr. Tiana Banda MD Primary Care Provider Active Dr. Hugh Mccain MD Attending Provider, Referring Pro vider Active Team Status: Inactive Member Role Status Dates Dr. Tiana Banda MD Primary Care Provider Active DES BELTRAN Attending Provider Active Hoist Cylinder Loader Relationship Specialty Start Date End Date Tiana Banda MD [address] [facility] [place] [address] PCP - General Internal Medicine 02/15/21 Hoist Cylinder Loader Relationship Specialty Start Date End Date Tiana Banda MD [address] [facility] [place] [address] PCP - General Internal Medicine 02/15/21 Hoist Cylinder Loader Relationship Specialty Start Date End Date Tiana Banda MD [address] [facility] [place] [address] PCP - General Internal Medicine 02/15/21 Hoist Cylinder Loader Relationship Specialty Start Date End Date Tiana Banda MD [address] [facility] [place] [address] PCP - General Internal Medicine 02/15/21 Hoist Cylinder Loader Relationship Specialty Start Date End Date Tiana Banda MD [address] [facility] [place] [address] PCP - General Internal Medicine 02/15/21 Hoist Cylinder Loader Relationship Specialty Start Date End Date Tiana Banda MD [address] [facility] [place] [address] PCP - General Internal Medicine 02/15/21 Hoist Cylinder Loader Relationship Specialty Start Date End Date Tiana Banda MD [address] [facility] [place] [address] PCP - General Internal Medicine 02/15/21 Hoist Cylinder Loader Relationship Specialty Start Date End Date Tiana Banda MD [address] [facility] [place] [address] PCP - General Internal Medicine 02/15/21 Hoist Cylinder Loader Relationship Specialty Start Date End Date Tiana Banda MD [address] [facility] [place] [address] PCP - General Internal Medicine 02/15/21 Hoist Cylinder Loader Relationship Specialty Start Date End Date Tiana Banda MD [address] [facility] [place] [address] PCP - General Internal Medicine 02/15/21 Hoist Cylinder Loader Relationship Specialty Start Date End Date Tiana Banda MD [address] [facility] [place] [address] PCP - General Internal Medicine 02/15/21 Hoist Cylinder Loader Relationship Specialty Start Date End Date Tiana Banda MD [address] [facility] [place] [address] PCP - General Internal Medicine 02/15/21 Team Status: Inactive Member Role Status Dates Tiana DEMARCO MD Primary Care Provider Active Dr. Hugh Mccain MD Attending Provider Active Dr. Tiana Banda MD Referring Provider Active Team Status: Active Member Role Status Dates Tiana DEMARCO MD Primary Care Provider Active Dr. Tobi Pittman MD Attending Provider Active Hoist Cylinder Loader Relationship Specialty Start Date End Date Tiana Banda MD [address] [place] [address] PCP - General Internal Medicine 02/15/21 Hoist Cylinder Loader Relationship Specialty Start Date End Date Tiana Banda MD [address] [place] [address] PCP - General Internal Medicine 02/15/21 Hoist Cylinder Loader Relationship Specialty Start Date End Date Tiana Banda MD [address] [place] [address] PCP - General Internal Medicine 02/15/21 Hoist Cylinder Loader Relationship Specialty Start Date End Date Tiana Banda MD [address] [place] [address] PCP - General Internal Medicine 02/15/21 Hoist Cylinder Loader Relationship Specialty Start Date End Date Tiana Banda MD [address] [place] [address] PCP - General Internal Medicine 02/15/21 Team Status: Inactive Member Role Status Dates Dr. Tiana Banda MD Primary Care Provider, Referring Provider Active Dr. Tobi Pittman MD Active Yue WAYNE, [place] Attending Provider Active Team Status: Active Member Role Status Dates Dr. Tiana Banda MD Primary Care Provider Active Dr. 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 Relationship Specialty Start Date End Date Tiana Banda MD [address] [place] [address] PCP - General Internal Medicine 02/15/21 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 Mia Garsia MD Primary Care Provider Active Team Status: Inactive Member Role Status Dates Dr. Mia Garsia MD Primary Care Provider Active Start: March 07, 2024 End: March 07, 2024 Jessica Montes NP, NP-C Attending Provider Active Start: March 07, 2024 End: March 07, 2024 Jessica Montes NP, NP-C Referring Provider Active Start: March 07, 2024 End: March 07, 2024 Team Status: Inactive Member Role Status Dates Dr. Mia Garsia MD Primary Care Provider Active Start: March 11, 2024 End: March 11, 2024 Dr. Mia Garsia MD Referring Provider Active Start: March 11, 2024 End: March 11, 2024 Dr. Hugh Mccain MD Attending Provider Active S tart: March 11, 2024 End: March 11, 2024 Team Status: Inactive Member Role Status Dates Dr. Mia Garsia MD Primary Care Provider Active Start: March 17, 2024 End: March 17, 2024 Dr. Mia Garsia MD Attending Provider Active Start: March 17, 2024 End: March 17, 2024 Dr. Mia Garsia MD Referring Provider Active Start: March 17, 2024 End: March 17, 2024 Team Status: Inactive Member Role Status Dates Dr. Mia Garsia MD Primary Care Provider Active Start: April 24, 2024 End: April 24, 2024 Dr. Feliciano Portillo MD Attending Provider Active Start: April 24, 2024 End: April 24, 2024 Dr. Feliciano Portillo MD Referring Provider Active Start: April 24, 2024 End: April 24, 2024 Team Status: Inactive Member Role Status Dates Dr. Mia Garsia MD Primary Care Provider Active Start: May 06, 2024 End: May 06, 2024 Dr. Mia Garsia MD Referring Provider Active Start: May 06, 2024 End: May 06, 2024 Dr. Luis Enrique Marr MD Attending Provider Active Start: May 06, 2024 End: May 06, 2024 Team Status: Inactive Member Role Status Dates Dr. Mia Garsia MD Primary Care Provider Active Start: June 18, 2024 End: June 18, 2024 Dr. Mia Garsia MD Attending Provider Active Start: June 18, 2024 End: June 18, 2024 Dr. Mia Garsia MD Referring Provider Active Start: June 18, 2024 End: June 18, 2024 Team Status: Inactive Member Role Status Dates Dr. Mia Garsia MD Primary Care Provider Active Start: June 30, 2024 End: June 30, 2024 Dr. Hugh Mccain MD Attending Provider Active S tart: June 30, 2024 End: June 30, 2024 Dr. Hugh Mccain MD Referring Provider Active S tart: June 30, 2024 End: June 30, 2024 Team Status: Active Member Role Status Dates Dr. Tiana Banda MD Primary Care Provider Active Start: June 30, 2024 Dr. Hugh Mccain MD Attending Provider Active S tart: June 30, 2024 Dr. Hugh Mccain MD Referring Provider Active S tart: June 30, 2024 Team Status: Inactive Member Role Status Dates Dr. Mia Garsia MD Primary Care Provider Active Start: July 14, 2024 End: July 14, 2024 Dr. Mia Garsia MD Referring Provider Active Start: July 14, 2024 End: July 14, 2024 Dr. Hugh Mccain MD Attending Provider Active S tart: July 14, 2024 End: July 14, 2024 Team Status: Active Member Role Status Dates Dr. Tiana Banda MD Primary Care Provider Active Start: July 14, 2024 Dr. Hugh Mccain MD Attending Provider Active S tart: July 14, 2024 Dr. Hugh Mccain MD Referring Provider Active S tart: July 14, 2024 Team Status: Inactive Member Role Status Dates Dr. Mia Garsia MD Primary Care Provider Active Start: July 23, 2024 End: July 23, 2024 Dr. Hugh Mccain MD Attending Provider Active S tart: July 23, 2024 End: July 23, 2024 Dr. Hugh Mccain MD Referring Provider Active S tart: July 23, 2024 End: July 23, 2024 Team Status: Inactive Member Role Status Dates Dr. Mia Garsia MD Primary Care Provider Active Start: August 04, 2024 End: August 04, 2024 Dr. Mia Garsia MD Referring Provider Active Start: August 04, 2024 End: August 04, 2024 Dr. Hugh Mccain MD Attending Provider Active S tart: August 04, 2024 End: August 04, 2024 Team Status: Active Member Role Status Dates Dr. Mia Garsia MD Primary Care Provider Active Start: August 19, 2024 Romana Rosado Attending Provider Active Start : August 19, 2024 Romana Corona Referring Provider Active Start : August 19, 2024 Team Status: Inactive Member Role Status Dates Dr. Mia Garsia MD Primary Care Provider Active Start: August 21, 2024 End: August 21, 2024 Dr. Mia Garsia MD Referring Provider Active Start: August 21, 2024 End: August 21, 2024 Dr. Gabriel Fitch MD Attending Provider Active Start: August 21, 2024 End: August 21, 2024 Team Status: Inactive Member Role Status Dates Dr. Mai Garsia MD Primary Care Provider Active Start: August 19, 2024 End: August 19, 2024 Romana Rosado Attending Provider Active Start : August 19, 2024 End: August 19, 2024 Romana Rosado Referring Provider Active Start : August 19, 2024 End: August 19, 2024 Team Status: Active Member Role/Relationship Status Dates Dr. Mia Garsia MD Primary Care Provider Active Team Status: Inactive Member Role/Relationship Status Dates Dr. Mia Garsia MD Primary Care Provider Active Start: June 18, 2024 End: June 18, 2024 Dr. Mia Garsia MD Attending Provider Active Start: June 18, 2024 End: June 18, 2024 Dr. Mia Garsia MD Referring Provider Active Start: June 18, 2024 End: June 18, 2024 Team Status: Inactive Member Role/Relationship Status Dates Dr. Mia Garsia MD Primary Care Provider Active Start: June 30, 2024 End: June 30, 2024 Dr. Hugh Mccain MD Attending Provider Active S tart: June 30, 2024 End: June 30, 2024 Dr. Hugh Mccain MD Referring Provider Active S tart: June 30, 2024 End: June 30, 2024 Team Status: Inactive Member Role/Relationship Status Dates Dr. Mia Garsia MD Primary Care Provider Active Start: July 14, 2024 End: July 14, 2024 Dr. Mia Garsia MD Referring Provider Active Start: July 14, 2024 End: July 14, 2024 Dr. Hugh Mccain MD Attending Provider Active S tart: July 14, 2024 End: July 14, 2024 Team Status: Active Member Role/Relationship Status Dates Dr. Tiana Banda MD Primary Care Provider Active Start: July 14, 2024 Dr. Hugh Mccain MD Attending Provider Active S tart: July 14, 2024 Dr. Hugh Mccain MD Referring Provider Active S tart: July 14, 2024 Team Status: Inactive Member Role/Relationship Status Dates Dr. Mia Garsia MD Primary Care Provider Active Start: July 23, 2024 End: July 23, 2024 Dr. Hugh Mccain MD Attending Provider Active S tart: July 23, 2024 End: July 23, 2024 Dr. Hugh Mccain MD Referring Provider Active S tart: July 23, 2024 End: July 23, 2024 Team Status: Inactive Member Role/Relationship Status Dates Dr. Mia Garsia MD Primary Care Provider Active Start: August 04, 2024 End: August 04, 2024 Dr. Mia Garsia MD Referring Provider Active Start: August 04, 2024 End: August 04, 2024 Dr. Hugh Mccain MD Attending Provider Active S tart: August 04, 2024 End: August 04, 2024 Team Status: Inactive Member Role/Relationship Status Dates Dr. Mia Garsia MD Primary Care Provider Active Start: August 19, 2024 End: August 19, 2024 Romana Rosado Attending Provider Active Start : August 19, 2024 End: August 19, 2024 Romana Rosado Referring Provider Active Start : August 19, 2024 End: August 19, 2024 Team Status: Inactive Member Role/Relationship Status Dates Dr. Mia Garsia MD Primary Care Provider Active Start: August 21, 2024 End: August 21, 2024 Dr. Mia Garsia MD Referring Provider Active Start: August 21, 2024 End: August 21, 2024 Dr. Gabriel Fitch MD Attending Provider Active Start: August 21, 2024 End: August 21, 2024 Team Status: Inactive Member Role/Relationship Status Dates Dr. Mia Garsia MD Primary Care Provider Active Start: September 25, 2024 End: September 25, 2024 Dr. Mia Garsia MD Attending Provider Active Start: September 25, 2024 End: September 25, 2024 Dr. Mia Garsia MD Referring Provider Active Start: September 25, 2024 End: September 25, 2024 Goals (unrecognized section and content) Goals may be documented in a n alternate sectionGoals may be documented in an alternate sectionGoals may be documented in an alternate sectionGoals may be documented in an alternate sectionGoals may be documented in an alternate sectionGoals may be documented in an alternate sectionGoals may be documented in an alternate sectionGoals may be documented in an alternate sectionGoals may be documented in an alternate sectionGoals may be documented in an alternate section INFORMATION SOURCE (unrecogn ized section and content) DATE CREATED AUTHOR 11/13/2023 [facility] DATE CREATED AUTHOR AUTHOR'S RODRÍGUEZ JULIEN 10/23/2024 [facility] FOR RECORDS PERTAINING TO PATIENTS WHO ARE [...] BE BASED ON THE PRIMARY CLINICAL RECORDS. [employer] provides no warranty or guarantee of the accuracy or completeness of information in this document.
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
[2024-10-24] MEDS: Lactated Ringers 1,000 ML 15 ML IV (08:04)
--- NOTE | 2024-10-24 08:15 | EGD_PTH ---
PATIENT: KRYSTA FRIEDMAN LOC: [facility] U#:[id number] AGE/SX: 79/F ROOM: RE10/24/[address]: Dr. Todd Ryan DO : 1945 BED: DIS: 10/24/2024 SPEC #: [id number] RECD: 10/24/24 09:49 STATUS: STEVEN REJudy #: [id number] TRISHA: 10/24/24 08:[address]: Todd Ryan DEPT: SURGICAL PATHOLOGY RECD BY: Jairo James ENTERED: 10/24/24 10:48 SP TYPE: EGD BIOPSY RON DR: Dr. Mia Garsia MD Tissues: A - Esophagus, NOS B - Gastric mucous membrane Procedures: Immunohistochemical Stains Surgery Specimen Level IV HEADER OPERATION: EGD PRE-OP DIAGNOSIS: Dyspepsia, gastritis TISSUE SUBMITTED: A- Distal esophagus biopsy, B- Gastric antrum biopsy MICROSCOPIC DIAGNOSIS A. Distal esophagus, biopsy: - Squamocolumnar mucosa with goblet cell metaplasia - see note. - Negative for dysplasia. Note: The diagnosis depends on the location of the biopsy and the extent of the mucosal irregularity. If the biopsy originates from the tubular esophagus and the mucosal irregularity extends at least 1 cm above the top of the gastric folds, this represents Bell mucosa. If the biopsy originates from the gastric cardia and/or the mucosal irregularity is less than 1 cm in extent, this represents intestinal metaplasia. B. Gastric antrum, biopsy: - Oxyntic mucosa with features of reactive gastropathy. - IHC negative for H.pylori organisms. MICROSCOPIC DESCRIPTION Slides are reviewed. All matched controls reacted appropriately. These tests were developed and their performance characteristics determined by [facility]. They may not have been cleared or approved by the [place]. Food and Drug Administration. The FDA has determined that such clearance or approval is not necessary. The above immunohistochemical/dualISH markers are viewed by the Pathologist. GROSS DESCRIPTION A. Received in fixative is one container labeled with the patient's name and designated Distal esophagus biopsy. The specimen consists of one irregular fragment of light rubio soft tissue that measures 0.3 cm. The specimen is totally submitted in one cassette. B. Received in fixative is one container labeled with the patient's name and designated Gastric antrum biopsy. The specimen consists of three irregular fragments of light rubio soft tissue that in aggregate measure <0.1 to 0.4 cm. Smallest fragment may not survive processing. The specimen is totally submitted in one cassette. LA 10/24/2024 CPT:40891v2,10142
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
--- NOTE | 2024-10-24 09:05 | PCM.POST.ANE ---
Anesthesia: Postop Eval I Current Vital Signs Temperature: 98.1 F Pulse Rate: 74 Blood Pressure: 140/60 Respiratory Rate: 16 Pulse Ox: 97 Oxygen Delivery Method: Room Air Assessment Airway patent: Yes Spontaneous unlabored respirations: Yes Mental status: Awake and Calm nausea: No Vomiting: No Anesthesia Complication: No Fluid Hydration Crystalloid volume administer (ml): 300 Total IV fluid infused: 300 Progress Note Anesthesia document: Postop Eval 1 completed: Yes
--- NOTE | 2024-10-24 09:06 | OP.PROVAT_ITS ---
10/24/2024 Mia Garsia MD [address] [place] [address] [place] [address] Re : Upper GI endoscopy procedure for Devi Weston Dear Dr. Garsia This procedure was performed on Thursday, October 24, 2024. My impressions and recommendations are as follows: Impressions : - No gross lesions in the entire esophagus. - Erythematous mucosa in the gastric body. Biopsied. - Normal examined duodenum. Recommendations : - Discharge patient to home. - Resume previous diet. - Continue present medications. - Await pathology results. My findings are described in the full procedure note, which is enclosed. If I can be of further assistance, please feel free to contact me at . Sincerely, Todd Ryan, 10/24/2024 9:06:21 AM This report has been signed electronically.
--- NOTE | 2024-10-24 09:06 | OP.EGD_ITS ---
Patient Name: Devi Weston Procedure Date: 10/24/2024 8:41 AM Date of : 1945 Age: 79 Procedure: Upper GI endoscopy Indications: Functional Dyspepsia, Abnormal CT of the GI tract Providers: Todd Ryan DO Referring MD: Mia Garsia MD Medicines: Monitored Anesthesia Care Patient Profile: This is a 79 year old female. Refer to note in patient chart for documentation of history and physical. Patient has symptoms of acute epigastric abdominal pain, acute dyspepsia and chronic throat burning. Complications: No immediate complications. Procedure: Pre-Anesthesia Assessment: - Prior to the procedure, a History and Physical was performed, and patient medications and allergies were reviewed. The patient is competent. The risks and benefits of the procedure and the sedation options and risks were discussed with the patient. All questions were answered and informed consent was obtained. Patient identification and proposed procedure were verified by the physician in the pre-procedure area. Mental Status Examination: alert and oriented. Airway Examination: normal oropharyngeal airway and neck mobility. Respiratory Examination: clear to auscultation. CV Examination: normal. ASA Grade Assessment: II - A patient with mild systemic disease. After reviewing the risks and benefits, the patient was deemed in satisfactory condition to undergo the procedure. The anesthesia plan was to use monitored anesthesia care (MAC). Immediately prior to administration of medications, the patient was re-assessed for adequacy to receive sedatives. The heart rate, respiratory rate, oxygen saturations, blood pressure, adequacy of pulmonary ventilation, and response to care were monitored throughout the procedure. The physical status of the patient was re-assessed after the procedure. After obtaining informed consent, the endoscope was passed under direct vision. Throughout the procedure, the patient's blood pressure, pulse, and oxygen saturations were monitored continuously. The gastroscope was introduced through the mouth, and advanced to the third part of the duodenum. Small bowel enteroscopy was deemed necessary. The upper GI endoscopy was accomplished without difficulty. The patient tolerated the procedure well. Scope In: 8:53:25 AM Scope Out: 8:56:16 AM Total Procedure Duration Time 0 hours 2 minutes 51 seconds Findings: Patchy mildly erythematous mucosa without bleeding was found in the gastric body. Biopsies were taken with a cold forceps for histology. Verification of patient identification for the specimen was done. Estimated blood loss was minimal. Biopsies were taken with a cold forceps for Helicobacter pylori testing. Verification of patient identification for the specimen was done. Estimated blood loss was minimal. The examined duodenum was normal. The Z-line was irregular and was found 38 cm from the incisors. Biopsies were taken with a cold forceps for histology. Verification of patient identification for the specimen was done. Estimated blood loss was minimal. Impression: - No gross lesions in the entire esophagus. - Erythematous mucosa in the gastric body. Biopsied. - Normal examined duodenum. Recommendation: - Discharge patient to home. - Resume previous diet. - Continue present medications. - Await pathology results. Procedure Code(s): --- Professional --- 93085, Small intestinal endoscopy, enteroscopy beyond second portion of duodenum, not including ileum; with biopsy, single or multiple CPT copyright 2021 [employer]. All rights reserved. The codes documented in this report are preliminary and upon medical insurance coder review may be revised to meet current compliance requirements. Todd Ryan DO 10/24/2024 9:06:21 AM This report has been signed electronically. Number of Addenda: 0 Note Initiated On: 10/24/2024 8:41 AM
--- NOTE | 2024-10-24 10:51 | PCM.POSTANE2 ---
Anesthesia Postop Eval I Sum Postop Eval Completion status Anesthesia document: Postop Eval 1 completed: Yes Anesthesia Postop Eval I Summary Anesthesia Postop Eval I Summary: Anesthesia Postop Eval I: Assessment Summary Airway patent Yes 10/24/24 09:06 [email or web address] Spontaneous unlabored Yes 10/24/24 09:06 [email or web address] respirations Mental status Awake,Calm 10/24/24 09:06 [email or web address] nausea No 10/24/24 09:06 [email or web address] Vomiting No 10/24/24 09:06 [email or web address] Anesthesia Postop Eval I: Fluid Summary Crystalloid volume administer 300 10/24/24 09:06 [email or web address] (ml) Colloids volume administered ( ml) Blood Product volume administered (ml) Total IV fluid infused 300 10/24/24 09:06 [email or web address] Anesthesia Postop Eval I: Summary Notes Anesthesia Complication No 10/24/24 09:06 [email or web address] Anesthesia Complication Comment: Post-operative progress note Anesthesia: Postop Eval II Evaluation Mental status: Awake Pain Level: 0 nausea: No Vomiting: No
== END 2024-10-24 09:58 | disposition home or self-care (01) ==
LOC: EN 07:07 → AC 07:08
PROVIDERS: PCP Internal Medicine; Referring Provider Internal Medicine; Visit Provider Internal Medicine Gastroenterology
PROC: 0DJ08ZZ Inspection of Upper Intestinal Tract, Via Natural or Artificial Opening Endoscopic (ICD-10-PCS; CPT 43235; principal; 2024-10-24 08:10)
DX: K22.70 Barrett's esophagus without dysplasia (principal); C50.912 Malignant neoplasm of unspecified site of left female breast; K29.50 Unspecified chronic gastritis without bleeding; I10 Essential (primary) hypertension; K21.9 Gastro-esophageal reflux disease without esophagitis; K75.81 Nonalcoholic steatohepatitis (NASH); M85.88 Other specified disorders of bone density and structure, other site; Z90.13 Acquired absence of bilateral breasts and nipples; Z87.19 Personal history of other diseases of the digestive system; Z79.899 Other long term (current) drug therapy; Z87.891 Personal history of nicotine dependence
CPT/HCPCS: 44361; 88305; 88342; J2405

== ENCOUNTER → 2024-12-29 | Outpatient (CLI) | payer MEDICARE, OTHER, SELFPAY ==
[2024-12-29 14:03] LABS: Hematocrit 44.3 % (37-47); Hemoglobin 14.5 g/dL (12.0-15.0); Immature Granulocytes Count 0.050 X10^3/uL (0.0-0.0); Mean Corp Hgb Conc 32.7 g/dL (32-36); Mean Corpuscular Volume 87.7 fL (81-99); Mean Platelet Vol. 9.6 fl (6.2-12.0); NRBC Flagged by Analyzer 0 % (0-5); Platelet Count 366 K/mm3 (150-450); RBC Distribution Width CV 13.5 % (11.6-14.6); RBC Distribution Width SD 43.2 fl (35.1-43.9); Red Blood Count 5.05 M/mm3 (4.2-5.4); White Blood Count 8.9 K/mm3 (4.4-11.0)
[2024-12-29 14:43] LABS: AST(SGOT) 28 U/L (<=31); Alanine Aminotransfer ALT/SGPT 19 U/L (<=34); Albumin, Serum 4.3 g/dL (3.4-4.8); Alkaline Phosphatase 86 U/L (35-104); Anion Gap 13 (5-15); BUN 9 mg/dL (4-19); BUN/Creat Ratio 11.0 RATIO (10-20); Calcium,Total 9.5 mg/dL (7.6-11.0); Carbon Dioxide 25.2 mmol/L (21.0-32.0); Chloride 100 mmol/L (98-108); Globulin 2.9 g/dL (2.2-4.2); Glucose 149 mg/dL (70-99); Potassium 4.0 mmol/L (3.3-5.1)
[2024-12-29 14:45] LABS: CRP < 3.00 mg/L (0.0-3.0)
== END | disposition home or self-care (01) ==
LOC: LAB 13:08
PROVIDERS: PCP Internal Medicine; Referring Provider Internal Medicine; Visit Provider Internal Medicine
DX: K76.0 Fatty (change of) liver, not elsewhere classified (principal); I10 Essential (primary) hypertension; R63.4 Abnormal weight loss; R73.9 Hyperglycemia, unspecified
CPT/HCPCS: 36415; 80053; 83036; 84439; 84443; 85025; 85652; 86140

== ENCOUNTER → 2025-02-16 | Outpatient (CLI) | payer MEDICARE, OTHER, SELFPAY ==
--- NOTE | 2025-02-16 14:49 | CT_ITS ---
PROCEDURE: CT CHEST, ABD, PEL W/CONTRAST 02/16/2025 REASON FOR EXAM: WEIGHT LOSS; H/O BREAST CANCER TECHNIQUE: Chest, abdomen and pelvis CT with intravenous contrast. Coronal and Sagittal reconstruction series were provided. One or more dose reduction techniques were used (e.g., Automated exposure control, adjustment of the mA and/or kV according to patient size, use of iterative reconstruction technique. CONTRAST: Isovue 370 VOLUME: 95mL RADIATION DOSE SUMMARY: CTDlvol: 32 mGy DLP: 812 mGycm COMPARISON: 06/30/2024 FINDINGS: Inspection of the lung parenchyma demonstrates no significant metastatic nodules in the chest. No fibrosis. No edema. No pleural effusions. Normal aorta. Normal mediastinum. No pulmonary emboli. No pericardial fluid. No significant change in scattered axillary nodes on the left. Chest wall maintained. Normal thoracic vertebra as well as sternum. The liver, spleen and portal vein are unremarkable. Subtle hypodensities remain present in the liver likely representing cysts with no change. Normal adrenal glands and pancreas. No retroperitoneal adenopathy. No ascites or peritoneal thickening. Assessment of the osseous structures demonstrates no osteolytic or osteoblastic lesions. CT/CT Chest, Abd, Pel w/Contrast IMPRESSION: Negative for metastatic disease. Reading [facility]
== END | disposition home or self-care (01) ==
LOC: CT 14:46
PROVIDERS: PCP Internal Medicine; Referring Provider Nurse Practitioner Family; Visit Provider Nurse Practitioner Family
DX: R63.4 Abnormal weight loss (principal); Z85.3 Personal history of malignant neoplasm of breast
CPT/HCPCS: 71260; 74177; Q9967; A4216